=== PATIENT | male | born 1950 | race Caucasian/White ===

== ENCOUNTER → 2019-10-08 11:21 | Outpatient (BNVA) | payer MEDICARE, OTHER, SELFPAY | PROVIDERS: Family Provider Nurse Practitioner; PCP Nurse Practitioner Family; Visit Provider Nurse Practitioner Family | DX: E78.5 Hyperlipidemia, unspecified (principal); J30.89 Other allergic rhinitis; R03.0 Elevated blood-pressure reading, without diagnosis of hypertension | CPT/HCPCS: 80053; 80061; 85025 ==

== ENCOUNTER → 2020-01-15 08:00 | Outpatient (BNVA) | payer MEDICARE, OTHER, SELFPAY | PROVIDERS: Family Provider Nurse Practitioner; PCP Nurse Practitioner Family; Visit Provider Nurse Practitioner Family | DX: E78.5 Hyperlipidemia, unspecified (principal); M25.50 Pain in unspecified joint; R03.0 Elevated blood-pressure reading, without diagnosis of hypertension; M10.9 Gout, unspecified | CPT/HCPCS: 80053; 80061; 84550; 85025 ==

== ENCOUNTER → 2020-02-06 08:46 | Outpatient (BNVA) | payer MEDICARE, OTHER, SELFPAY | PROVIDERS: Family Provider Nurse Practitioner; PCP Nurse Practitioner Family; Visit Provider Nurse Practitioner Family | DX: M10.9 Gout, unspecified (principal); R73.9 Hyperglycemia, unspecified; E78.5 Hyperlipidemia, unspecified | CPT/HCPCS: 83036; 84550; 85025 ==

== ENCOUNTER → 2020-10-29 09:20 | Outpatient (BNVA) | payer MEDICARE, OTHER, SELFPAY | PROVIDERS: Family Provider Nurse Practitioner; PCP Nurse Practitioner Family; Visit Provider Nurse Practitioner Family | DX: Z00.00 Encounter for general adult medical examination without abnormal findings (principal); E78.5 Hyperlipidemia, unspecified; R73.9 Hyperglycemia, unspecified; M10.9 Gout, unspecified; J30.89 Other allergic rhinitis; I10 Essential (primary) hypertension; Z12.5 Encounter for screening for malignant neoplasm of prostate | CPT/HCPCS: 80053; 80061; 83036; 84550; 85025; G0103 ==

== ENCOUNTER → 2021-08-12 17:26 | Outpatient (BNVA) | payer MEDICARE, SELFPAY | PROVIDERS: Family Provider Nurse Practitioner; PCP Nurse Practitioner Family; Visit Provider Nurse Practitioner Family | DX: I10 Essential (primary) hypertension (principal); R73.9 Hyperglycemia, unspecified; E78.5 Hyperlipidemia, unspecified; M10.9 Gout, unspecified | CPT/HCPCS: 80053; 80061; 83036; 84443; 84550; 85025 ==

== ENCOUNTER → 2021-09-04 10:56 | Outpatient (BNVA) | payer MEDICARE, OTHER, SELFPAY | PROVIDERS: Family Provider Nurse Practitioner; PCP Nurse Practitioner Family; Visit Provider Surgery | DX: Z20.822 Contact with and (suspected) exposure to COVID-19 (principal) | CPT/HCPCS: 87635 ==

== ENCOUNTER 2021-09-10 06:39 | Day surgery (SDC) | payer MEDICARE, OTHER, SELFPAY ==
[2021-09-09 13:39] VITALS: BMI 23.0
[2021-09-10 07:00] VITALS: BP 159/88; PULSE 61; RESP 18; TEMP 36.1; O2SAT 98
--- NOTE | 2021-09-10 07:05 | P.HP_ITS ---
Same Day Surgery H&P Indication for Procedure/HPI DATE OF PROCEDURE: September 10, 2021 CHIEF COMPLAINT/INDICATIONFOR SURGICAL PROCEDURE: right inguinal hernia repair PREOP DIAGNOSIS: inguinal hernia PLANNED PROCEDURE: Operation Date: 09/10/21 07:55 Proposed Procedures p Laparoscopic Inguinal Hernia Repair right 51304/k40.90(Right) - Cole Malcolm MD Medications/Allergies* Allergies/Adverse Reactions Allergy/AdvReac Type Severity Reaction Status Date / Time Penicillins Allergy Intermediate rash Verified 09/09/21 13:38 Pertinent History/Comorbid Conditions* Medical History (Updated 08/25/21 @ 09:15 by Cole Malcolm MD) Hyperlipidemia Surgical History (Updated 08/25/21 @ 08:16 by Cole Malcolm MD) H/O hemorrhoidectomy History of left inguinal hernia repair Family History (Updated 10/08/19 @ 08:40 by Helga Christianson LPN, RT) CAD (coronary artery disease) Mother Family/Other Social History Smoking and tobacco status: current some day smoker Second hand smoke exposure: No Lives independently: Yes Marital status: History of recent travel: No Current gender identity: Male Pertinent Exam Findings alert, oriented x 3 and regular rate & rhythm Recommendations Surgery/Procedure today Coding Level of Care Code Acute Stars Coordinator for Naren Ballard
--- NOTE | 2021-09-10 07:07 | ANES.PREANE2 ---
Pre-Anesthetic Assessment Height/Weight: Height 1.83 m Weight 77.111 kg Temp Pulse Resp BP Pulse Ox 97.0 F L 61 18 159/88 98 09/10/21 07:00 09/10/21 07:00 09/10/21 07:00 09/10/21 07:00 09/10/21 07:00 Preop Diagnosis: inguinal hernia Operation Date: 09/10/21 07:55 Proposed Procedures p Laparoscopic Inguinal Hernia Repair right 28161/k40.90(Right) - Cole Malcolm MD Familial anesthetic complications: None Was Beta Cesar taken within 24 hours: N/A Was Clonidine taken within 24 hours: N/A Last intake: Intake Last Liquid Date 09/09/21 Last Liquid Time 18:00 Last Solid Date 09/09/21 Last Solid Time 18:00 Social Tobacco and No alcohol Exam alert, oriented x 3, clear to auscultation bilaterally and regular rate & rhythm Airway Mallampati: Class II Dentition: false Metabolic Hyperlipidemia Anesthetic Plan ASA status: 2 Anesthesia: General Risk of > 500 ml blood loss (7ml/kg in children): No Medications/Allergies Home Medications Medication Instructions Recorded Confirmed Last Taken Type atorvastatin 10 mg tablet (Lipitor) 10 mg PO DAILY #90 tab 08/12/21 09/10/21 09/10/21 Rx allopurinol 100 mg tablet 100 mg PO DAILY #90 tab 08/21/21 09/09/21 Unknown Rx hydrocodone 5 mg-acetaminophen 325 1 tab PO Q6H PRN #20 tab 09/10/21 Unknown Rx mg tablet Allergies Allergy/AdvReac Type Severity Reaction Status Date / Time Penicillins Allergy Intermediate rash Verified 09/09/21 13:38 [facility] Anesthesia Medical History Hyperlipidemia Surgical History H/O hemorrhoidectomy History of left inguinal hernia repair Family History Mother CAD (coronary artery disease) Family/Other CAD (coronary artery disease) Social History Smoking and tobacco status: current some day smoker Second hand smoke exposure: No Lives independently: Yes Marital status: History of recent travel: No Current gender identity: Male Data Anesthesia Cardiac Studies: No Data to Display
[2021-09-10] MEDS: sodium chloride 0.9% 1,000 ML 30 ML IV (07:15)
[2021-09-10 10:11] VITALS: BP 147/83; PULSE 58; RESP 15; TEMP 36.2; O2SAT 100
[2021-09-10 10:15] VITALS: BP 130/86; PULSE 52; RESP 15; O2SAT 100
[2021-09-10 10:20] VITALS: BP 138/84; PULSE 54; RESP 15; TEMP 36.4; O2SAT 96
[2021-09-10 10:28] VITALS: BP 143/79; PULSE 59; RESP 16; TEMP 36.4; O2SAT 94
[2021-09-10] MEDS: HYDROcodone-acetaminophen 5-325 mg Tablet 1 TAB PO (10:56)
[2021-09-10 10:59] VITALS: BP 140/80; PULSE 70; RESP 18; TEMP 36.4; O2SAT 96
--- NOTE | 2021-09-10 11:16 | P.OP_ITS ---
Operative Report Date of procedure: September 10, 2021 Pre-op diagnosis: Right inguinal hernia Post-op diagnosis: Right indirect inguinal hernia Procedure done: Laparoscopic total extraperitoneal repair of right indirect inguinal hernia with Surgimax 3D mesh Pathology: none sent Surgeon: Cole Malcolm Anesthesia: General Condition: stable Disposition: PACU Procedure: The patient was taken to the operating room and intubated under general anesthesia After IV antibiotic was administered, the abdomen was prepped and draped in a sterile manner. Using a 15 blade, a 1.0 cm transverse incision was made infraumbilically on the right side. Subcutaneous tissue was divided using electrocautery and the anterior rectus sheath divided using an 11 blade. The rectus muscle was retracted laterally and the extraperitoneal space identified. A 11 mm port was placed and 12 mm of pneumoperitoneum was created. A 10 mm 30? scope was introduced and the retrorectus space was opened using the camera up to the pubic symphysis and 5 mm ports were placed in the midline, one 2- fingerbreadths above the pubic symphysis and the other midway between these two ports under direct visualization. Blunt dissection was carried out to open up the tissue in the midline and to the pubic symphysis, which was identified. The dissection was then carried laterally where the iliopubic tract was identified. There was no femoral, obturator or direct hernia noted. The inferior epigastric artery was identified and dissection was carried posterior to it and laterally, the space was opened up to the level of the umbilicus superior to the anterior superior iliac spine. I then proceeded to dissect out the spermatic cord and the indirect hernial sac was reduced . 15 x 10cm Ultrapro mesh was rolled and introduced through the 10 mm port and then rolled laterally and apposed well against the abdominal wall to cover the myopectineal orifice completely. 10 Cc of 0.5% Marcaine was infiltrated into the preperitoneal space. The extraperiton eal space was desufflated under direct visualization to ensure no slippage of hernial sac under the mesh. All ports were removed, the anterior rectus fascia at the infraumbilical port closed using figure of eight 0 Vicryl sutures, subcutaneous tissue approximated using 3-0 Vicryl sutures and skin at all three port sites were closed using running subcuticular 4-0 Monocryl sutures and Dermabond. 10 mL of 0.5% Marcaine was infiltrated at the port sites. The patient was stable throughout the procedure.
--- NOTE | 2021-09-10 13:23 | ANE.PACU2 ---
Inpatient post-anesthesia follow up: Airway intact: Yes Vital signs: Temperature 97.5 F Pulse Rate 70 Respiratory Rate 18 Blood Pressure 140/80 Pulse Oximetry 96 Oxygen Delivery Me thod Room Air Oxygen Flow Rate 6 Fraction of Inspir ed Oxygen Hydration adequate: Yes Nausea and vomiting: No Pain level: 2 Mental status: Baseline
== END 2021-09-10 11:05 | disposition home or self-care (01) ==
PROVIDERS: PCP Nurse Practitioner Family; Visit Provider Surgery
PROC: (CPT 49650; principal; 2021-09-10 07:55)
DX: K40.90 Unilateral inguinal hernia, without obstruction or gangrene, not specified as recurrent (principal); E78.5 Hyperlipidemia, unspecified; Z82.49 Family history of ischemic heart disease and other diseases of the circulatory system; F17.210 Nicotine dependence, cigarettes, uncomplicated
CPT/HCPCS: 49650; C1781; J1100; J2405; J2704; J2710; J3010; J3370; J3490; J7030; J7040

== ENCOUNTER → 2021-09-22 13:11 | Outpatient (BNVA) | payer MEDICARE, SELFPAY | PROVIDERS: PCP Nurse Practitioner Family; Visit Provider Surgery | DX: Z98.890 Other specified postprocedural states (principal); Z87.19 Personal history of other diseases of the digestive system; F17.210 Nicotine dependence, cigarettes, uncomplicated ==

== ENCOUNTER → 2022-02-16 09:43 | Outpatient (BNVA) | payer MEDICARE, OTHER, SELFPAY | PROVIDERS: PCP Nurse Practitioner Family; Visit Provider Nurse Practitioner Family | DX: Z00.00 Encounter for general adult medical examination without abnormal findings (principal); I10 Essential (primary) hypertension; Z12.5 Encounter for screening for malignant neoplasm of prostate; M10.9 Gout, unspecified; R73.9 Hyperglycemia, unspecified; M25.561 Pain in right knee; E78.5 Hyperlipidemia, unspecified; Z12.11 Encounter for screening for malignant neoplasm of colon | CPT/HCPCS: 73562; 80053; 80061; 83036; 83735; 84443; 84550; 85025; G0103 ==

== ENCOUNTER 2022-03-03 10:05 | Outpatient (CLI) | payer MEDICARE, OTHER, SELFPAY ==
--- NOTE | 2022-03-03 09:30 | MR_ITS ---
WS: [id number] MRI RIGHT KNEE HISTORY: M25.561 - Pain in right knee COMPARISON: Radiographs 02/16/2022 Anterior cruciate ligament: Intact. Posterior cruciate ligament: Intact. Medial collateral ligament: Intact. Posterior lateral corner structures: Intact. Medial menisci: Scattered increased T2 signal in the posterior horn. No meniscal tear is identified. Anterior horn is negative. Lateral meniscus: Mild intrasubstance degeneration. No tear is identified. Extensor mechanism: Distal quadriceps tendon and patellar tendons are intact. Fluid and soft tissue: No significant joint effusion. Small lobulated Alfred's cyst. Osseous and articular structures: Patellofemoral compartment: Normally positioned patella. Very mild thinning of the patella at the irvin nence and over the medial facet. No underlying marrow edema. Medial compartment: Moderate narrowing medial compartment. Moderate chondromalacia involving the tibi al plateau and femoral condyle. Small amount of subchondral edema along the tibial plateau with small marginal osteophytes. There is very minimal protrusion of the meniscus from the joint line. Lateral compartment: Mild narrowing of the lateral compartment. There is very mild chondromalacia nickie ng the tibial plateau. No marrow edema. There is a very small fluid collection along the popliteus tendon measuring only 12 mm in length. Zully pect this is probably a small ganglion or bursal fluid. Seen only on the sagittal images is a very sm all tract of fluid extending to the posterior horn of the lateral meniscus. Meniscal cyst is not comp letely excluded. MR/MR knee RT wo con* [id number] IMPRESSION: 1. Moderate medial compartment joint space narrowing with chondromalacia. Smal l amount of subchondral marrow edema along the tibial plateau. 2. Mild narrowing of the lateral compartment. 3. Very mild chondromalacia patellar eminence and medial patellar facet. 4. Small fluid collection along the popliteus tendon. There is a small tract t hat extends towards the posterior horn of the lateral meniscus. Differential in cludes meniscal cyst from occult tear, small ganglion or bursal fluid.
== END 2022-03-03 10:06 | disposition home or self-care (01) ==
LOC: RAD 10:06
PROVIDERS: PCP Nurse Practitioner Family; Visit Provider Nurse Practitioner Family
DX: M25.561 Pain in right knee (principal); M94.261 Chondromalacia, right knee
CPT/HCPCS: 73721

== ENCOUNTER → 2022-04-05 07:52 | Outpatient (BNVA) | payer MEDICARE, OTHER, SELFPAY | PROVIDERS: PCP Nurse Practitioner Family; Visit Provider Specialist | DX: M17.11 Unilateral primary osteoarthritis, right knee (principal) | CPT/HCPCS: 73560; 73565; 99203 ==

== ENCOUNTER → 2022-06-04 12:53 | Outpatient (BNVA) | payer MEDICARE, OTHER, SELFPAY | PROVIDERS: PCP Nurse Practitioner Family; Visit Provider Nurse Practitioner Family | DX: M25.50 Pain in unspecified joint (principal); E78.5 Hyperlipidemia, unspecified; M10.9 Gout, unspecified; E55.9 Vitamin D deficiency, unspecified; R73.9 Hyperglycemia, unspecified | CPT/HCPCS: 80053; 80061; 82306; 82607; 83036; 83735; 84443; 84550; 85025; 86038; 86140; 86200; 86431 ==

== ENCOUNTER → 2022-10-06 08:25 | Outpatient (BNVA) | payer MEDICARE, OTHER, SELFPAY | PROVIDERS: PCP Nurse Practitioner Family; Referring Provider Nurse Practitioner Family; Visit Provider Psychiatry & Neurology Neurology | DX: R29.90 Unspecified symptoms and signs involving the nervous system (principal); Z82.0 Family history of epilepsy and other diseases of the nervous system; G45.1 Carotid artery syndrome (hemispheric); R03.0 Elevated blood-pressure reading, without diagnosis of hypertension | CPT/HCPCS: 36415; 81271 ==

== ENCOUNTER → 2022-10-06 08:25 | Outpatient (BNVA) | payer MEDICARE, OTHER, SELFPAY | PROVIDERS: PCP Nurse Practitioner Family; Referring Provider Nurse Practitioner Family; Visit Provider Psychiatry & Neurology Neurology | DX: Z82.0 Family history of epilepsy and other diseases of the nervous system (principal); R29.90 Unspecified symptoms and signs involving the nervous system; G45.1 Carotid artery syndrome (hemispheric); R03.0 Elevated blood-pressure reading, without diagnosis of hypertension; E78.5 Hyperlipidemia, unspecified; E55.9 Vitamin D deficiency, unspecified; M10.9 Gout, unspecified | CPT/HCPCS: 99212 ==

== ENCOUNTER 2022-10-13 06:17 | Outpatient (CLI) | payer MEDICARE, OTHER, SELFPAY ==
--- NOTE | 2022-10-13 06:15 | USCV_ITS ---
Ahsan Beltrán Age: 72 Gender: M : 1950 Exam Date: 10/13/2022 07:04 Ordering Phys: Pablito Nugent MD Technologist: YANA Exam Location: [facility] – [place] Indication: SHORTNESS OF BREATH BP: 166 / 90 HR: 81 Rhythm: Sinus Technical Quality: Adequate MEASUREMENTS (Male / Female) Normal Values 2D ECHO LVOT Diameter 2.0 cm LV Ejection Fraction MOD 2C 61.6 % LV Ejection Fraction 2C AL 61.8 % LA Diameter 3.5 cm LA Width 2.8 cm LA Height 4.0 cm RA Width 3.7 cm RA Height 4.4 cm Aorta at Sinotubular Diameter 2.9 cm IVC Diameter 1.0 cm M-MODE Aortic Annulus Diameter 2.6 cm LA Ao Ratio MM 1.3 MV E Point Septal Separation 0.2 cm DOPPLER AV Peak Velocity 168.0 cm/s LVOT Peak Velocity 117.0 cm/s AV Area Cont Eq vti 2.2 cm squared AV Area Cont Eq pk 2.1 cm squared MV Peak Velocity 83.0 cm/s MV Area PHT 3.3 cm squared Mitral E to A Ratio 0.9 MV E' Velocity 39.5 cm/s Mitral E to MV E' Ratio 4.8 Mitral E to LV E' Lateral Ratio 4.8 Mitral E to LV E' Septal Ratio 4.8 TR Peak Velocity 231.1 cm/s TR Peak Gradient 21.4 mmHg TR Mean Velocity 210.0 cm/s TR Mean Gradient 18.2 mmHg TR Velocity Time Integral 79.6 cm TV Peak E Velocity 40.0 cm/s Right Atrial Pressure 3.0 mmHg Pulmonary Artery Systolic Pressu 24.4 mmHg PV Peak Velocity 156.0 cm/s RV Acceleration Time 0.1 s RV Ejection Time 0.3 s RV AcT/ET 0.4 FINDINGS Left Ventricle Normal left ventricular size and systolic function, EF 59 %. No regional wall motion abnormalities. Right Ventricle The right ventricle is normal in size and function. Right Atrium The right atrium is normal in size. Left Atrium The left atrium is normal in size. Mitral Valve Trace mitral valve regurgitation. Aortic Valve No gross abnormalities noted. Aortic valve velocity of 1.73 m/s. Features of aortic valve sclerosis Tricuspid Valve Trace tricuspid valve regurgitation. Pulmonic Valve No gross abnormalities noted Pericardium Normal pericardium without effusion. Aorta Normal ascending aorta dimension. IVC Normal inferior vena cava. CONCLUSIONS Normal left ventricular size and systolic function, EF 59 %. No regional wall motion abnormalities. Features of aortic valve sclerosis. Trace tricuspid valve regurgitation. Trace mitral valve regurgitation. There is no pericardial effusion. There are no intracardiac masses. No similar previous studies are available for comparison Dr Campos Weldon MD FAC (Electronically Signed) Final Date: 15 Oct 2022 08:28 S
--- NOTE | 2022-10-13 07:30 | USCV_ITS ---
Ahsan Beltrán Age: 72 Gender: M : 1950 Exam Date: 10/13/2022 06:41 Ordering Phys: Pablito Nugent MD Technologist: JACKLYN Exam Location: [facility] [place] Indication: EVAL FOR CAROTID STENOSIS Risk Factors: Previous Vascular Surgery: Right Brachial BP: / Left Brachial BP: / Right Left Velocity (cm/s) Spectral Plaque Velocity (cm/s) Spectral Plaque Syst/Diast Broadening Syst/Diast Broadening 69.50/ 15.40 Prox CCA 100.00/ 25.60 73.90/ 20.90 Mid CCA 69.20 / 20.50 67.40/ 16.70 Distal CCA 53.00 / 20.50 38.20/ 15.40 Prox ICA 42.70 / 13.90 62.60/ 26.90 Mid ICA 64.90 / 25.60 57.40/ 22.20 Distal ICA 82.00 / 29.10 78.90 ECA 100.80 0.85 ICA/CCA 0.82 Antegrade Vertebral Antegrade 52.00/ 17.10 cm/s 46.70/ 15.80 cm/s Tri Subclavian Tri 88.00 112.4 0 FINDINGS Comparison: none available. No significant elevation of systolic or diastolic velocities. Waveforms are normal. Focal plaque at the bifurcations without stenosis. Antegrade vertebral arteries. CONCLUSIONS Bilateral ICA stenosis less than 50%. Mild carotid bifurcation atherosclerosis. Dr. Shalini Clarke DO (Electronically Signed) Final Date: 13 Oct 2022 07:49 S
== END 2022-10-13 06:18 | disposition home or self-care (01) ==
PROVIDERS: PCP Nurse Practitioner Family; Visit Provider Psychiatry & Neurology Neurology
DX: R03.0 Elevated blood-pressure reading, without diagnosis of hypertension (principal); R29.90 Unspecified symptoms and signs involving the nervous system; I65.23 Occlusion and stenosis of bilateral carotid arteries
CPT/HCPCS: 93306; 93880

== ENCOUNTER → 2022-11-09 13:46 | Outpatient (BNVA) | payer MEDICARE, OTHER, SELFPAY | PROVIDERS: PCP Nurse Practitioner Family; Visit Provider Psychiatry & Neurology Neurology | DX: I77.9 Disorder of arteries and arterioles, unspecified (principal); Z82.0 Family history of epilepsy and other diseases of the nervous system; I65.23 Occlusion and stenosis of bilateral carotid arteries; E78.5 Hyperlipidemia, unspecified; M10.9 Gout, unspecified | CPT/HCPCS: 99212 ==

== ENCOUNTER → 2022-12-10 12:10 | Outpatient (BNVA) | payer MEDICARE, OTHER, SELFPAY | PROVIDERS: PCP Nurse Practitioner Family; Visit Provider Nurse Practitioner Family | DX: M10.9 Gout, unspecified (principal); I10 Essential (primary) hypertension; R73.9 Hyperglycemia, unspecified | CPT/HCPCS: 80053; 80061; 82306; 83036; 84443; 84550; 85025 ==

== ENCOUNTER → 2023-01-17 08:20 | Outpatient (BNVA) | payer MEDICARE, OTHER, SELFPAY | PROVIDERS: PCP Nurse Practitioner Family; Visit Provider Nurse Practitioner Family | DX: I10 Essential (primary) hypertension (principal) | CPT/HCPCS: 80048 ==

== ENCOUNTER → 2023-01-24 13:40 | Outpatient (BNVA) | payer MEDICARE, OTHER, SELFPAY | PROVIDERS: PCP Nurse Practitioner Family; Visit Provider Dermatology | DX: L57.0 Actinic keratosis (principal); L82.1 Other seborrheic keratosis; L81.4 Other melanin hyperpigmentation; D22.4 Melanocytic nevi of scalp and neck; L57.8 Other skin changes due to chronic exposure to nonionizing radiation; D17.22 Benign lipomatous neoplasm of skin and subcutaneous tissue of left arm; D17.21 Benign lipomatous neoplasm of skin and subcutaneous tissue of right arm | CPT/HCPCS: 17000; 17003; 99203 ==

== ENCOUNTER → 2023-07-15 09:10 | Outpatient (BNVA) | payer MEDICARE, OTHER, SELFPAY | PROVIDERS: PCP Nurse Practitioner Family; Visit Provider Nurse Practitioner Family | DX: I10 Essential (primary) hypertension; Z12.5 Encounter for screening for malignant neoplasm of prostate; E55.9 Vitamin D deficiency, unspecified; M10.9 Gout, unspecified; R73.9 Hyperglycemia, unspecified | CPT/HCPCS: 80053; 80061; 82306; 83036; 84550; 85025; G0103 ==

== ENCOUNTER → 2023-11-07 12:45 | Outpatient (BNVA) | payer MEDICARE, OTHER, SELFPAY | PROVIDERS: PCP Nurse Practitioner Family; Visit Provider Psychiatry & Neurology Neurology | DX: I77.9 Disorder of arteries and arterioles, unspecified (principal); E78.5 Hyperlipidemia, unspecified | CPT/HCPCS: 99213; G0463 ==

== ENCOUNTER → 2024-07-05 14:52 | Outpatient (BNVA) | payer MEDICARE, OTHER, SELFPAY | PROVIDERS: PCP Nurse Practitioner Family; Visit Provider Nurse Practitioner Family | DX: R91.8 Other nonspecific abnormal finding of lung field (principal); R50.9 Fever, unspecified; R05.9 Cough, unspecified | CPT/HCPCS: 71046; 87400; 87426 ==

== ENCOUNTER 2024-07-06 10:44 | Inpatient (IN) | payer MEDICARE, OTHER, SELFPAY ==
[2024-07-06] VITALS (39 sets, daily range): BP systolic 90–133; BP diastolic 60–100; PULSE 74–127; RESP 17–31; TEMP 36.9–37.5; O2SAT 88–98; BMI 21.9
--- NOTE | 2024-07-06 10:49 | ECG_ITS ---
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
--- NOTE | 2024-07-06 10:49 | ECG_ITS ---
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
--- NOTE | 2024-07-06 10:57 | XR_ITS ---
WS: [id number] Portable AP upright chest, 07/06/2024 Clinical Data: dyspnea/cough Comparison: Two-view chest, 07/05/2024 Findings: The patchy opacities in the lower lobes persist today. The upper lobes are clear no nodules, masses or effusions are seen. The heart is normal. The pulmonary vascularity is not increased. No pneumothorax is seen. Monitor leads are on the chest wall. XR/XR chest 1V portable [id number] Impression: Minimal patchy bilateral lower lobe opacities which could indicate pneumonia.
--- NOTE | 2024-07-06 11:04 | ED_ITS ---
HPI - SOB/Dyspnea 2 General: Chief Complaint: Shortness of Breath/Dyspnea Stated Complaint: pneumonia Time Seen by Provider: 07/06/24 10:47 History of Present Illness: HPI Narrative: 74-year-old male presents to the emergen cy room with complaints of shortness of breath. He was seen at his primary care doctor's office yesterday thought to have pneumonia bilaterally was treated as an outpatient went back today for follow-up and was noted to be in A-fib with rapid ventricular response. Prior to going in he tells me he had been cutting wood with a chainsaw and a hydraulic splitter he had noticed he was more short of breath than usual. He EMS on arrival had him on 4 L by nasal cannula and reported his heart rate up to 150s his oxygen sat in the mid 90s. He has no known cardiac history no history of any arrhythmias no history of any atrial fibrillation in the past he is on aspirin he is not on any oral anticoagulants. Associated symptoms: Reports palpitations; Deny abdominal pain, chest pain or fever(s) Related Data Home Medications ?Medication ?Instructions ?Recorded ?Confirmed atorvastatin 10 mg tablet 10 mg PO DAILY 07/06/2412/21 diclofenac sodium 75 mg 75 mg PO DAILY pain 07/06/24 07/06/24 tablet,delayed release Previous Rx's ?Medication ?Instructions ?Recorded aspirin 81 mg tablet,delayed 81 mg PO DAILY #30 tabs 0 11/07/23 release (Adult Aspirin Regimen) cholecalciferol (vitamin D3) 1,250 50,000 unit PO .vic albarado #12 caps 11/07/23 mcg (50,000 unit) capsule albuterol sulfate 2.5 mg/3 mL 2.5 mg (3 mL) inhalation QID PRN 07/05/24 (0.083 %) solution for nebulization shortness of breat h or wheezing #75 mL compressor, for nebulizer #1 ea 07/05/24 nebulizer accessories #1 ea 07/05/24 Allergies Allergy/AdvReac Type Severity Reaction Status Date / Time Penicillins Allergy Intermediate rash Verified 07/05/24 14:07 Review of Systems 2 Const: Denies: fever(s) or chills Card: Reports: palpitations and irregular heart rhythm; Denies: chest pain Resp: Reports: dyspnea and productive cough GI: Denies: abdominal pain : Denies: dysuria, urinary frequency or urinary urgency Musc: Denies: neck pain or back pain Skin/Breast: Denies: rash PFSH ED 2 PFSH: Medical History Hyperlipidemia Surgical History Status post right inguinal hernia repair (09/10/21) History of left inguinal hernia repair H/O hemorrhoidectomy Family History Mother CAD (coronary artery disease) Family/Other CAD (coronary artery disease) Social History Smoking and tobacco/nicotine status: former use of tobacco/nicotine Second hand smoke exposure: No Substance/Drug Use: never Lives independently: Yes Marital status: Current gender identity: Male Physical Exam 2 Const: GENERAL APPEARANCE: cooperative ORIENTATION/CONSCIOUSNESS: Yes awake, Yes oriented to person, Yes oriented to place and Yes oriented to time HENMT: COMMON NORMALS: normocephalic, atraumatic and hearing grossly normal bilaterally HEAD & SCALP: normocephalic and atraumatic Resp: AUSCULTATION: rales Cardio: COMMON NORMALS: No murmurs present (Cardio) RATE: tachycardic R HYTHM: abnormal rhythm irregularly irregular GI: COMMON NORMALS: Soft to palpation and No hepatosplenomegaly present A USCULTATION: Yes normoactive bowel sounds PALPATION: Yes Soft to palpation, No Tenderness to palpation present (GI), No Guarding due to palpation present (GI) and Yes No hepatosplenomegaly present Extremity: COMMON NORMALS: normal to inspection, capillary refill normal, no clubbing, cyanosis or edema, no calf tenderness and no pedal edema Neuro: SENSORIUM/ORIENTATION: Yes oriented to person, Yes oriented to place and Yes oriented to time Skin: COMMON NORMALS: no rashes or lesions noted GENERAL SKIN EXAM: no rashes or lesions noted Course 2 Vital Signs: Vital signs: Vital Signs Temperature 98.8 F 07/06/24 14:48 Pulse Rate 93 07/06/24 15:00 Respiratory Rate 25 H 07/06/24 15:00 Blood Pressure 116/79 07/06/24 15:00 Pulse Oximetry 93 07/06/24 15:00 Oxygen Delivery Me thod Room Air 07/06/24 15:00 Oxygen Flow Rate 4 07/06/24 10:47 MDM - SOB/Dyspnea Medical Decision Making New onset A-fib rapid ventricular sponsor improved after Cardizem chills he also has pneumonia start IV antibiotics cultures done. Discussed with hospitalist orders written. Will need further evaluation for new onset A-fib as well. He also has mild acute kidney injury Lab Data 07/06/24 11:08 07/06/24 11:08 Labs/Radiology: Radiology Impressions Chest X-Ray 07/06/24 10:57 Impression: Minimal patchy bilateral lower lobe opacities which could indicate pneumonia. Laboratory Results WBC 15.87 10^3/uL (3.29-11.43) H 07/06/24 11:08 RBC 4.56 10^6/uL (3.85-5.65) 07/06/24 11:08 Hgb 14.50 g/dL (11.27-16.99) 07/06/24 11:08 Hct 43.1 % (37-53) 07/06/24 11:08 MCV 94.5 fl (82-101) 07/06/24 11:08 MCH 31.8 pg (27-33) 07/06/24 11:08 MCHC 33.6 g/dL (30-55) 07/06/24 11:08 RDW 12.4 % (12.1-15.1) 07/06/24 11:08 Plt Count 225 10^3/cmm (157-399) 07/06/24 11:08 MPV 9.6 fL (7.4-10.4) 07/06/24 11:08 Neut % (Auto) 87.9 % 07/06/24 11:08 Lymph % (Auto) 3.7 % 07/06/24 11:08 Ross % (Auto) 7.4 % 07/06/24 11:08 Eos % (Auto) 0.1 % 07/06/24 11:08 Baso % (Auto) 0.4 % 07/06/24 11:08 Neut # (Auto) 13.95 10^3/uL (1.8-7.7) H 07/06/24 11:08 Lymph # (Auto) 0.6 10^3/uL (0.8-4.8) L 07/06/24 11:08 Ross # (Auto) 1.2 10^3/uL (0.2-0.9) H 07/06/24 11:08 Eos # (Auto) 0.0 10^3/uL (0.0-0.8) 07/06/24 11:08 Baso # (Auto) 0.1 10^3/uL (0.0-0.1) 07/06/24 11:08 Nucleated RBC % (auto) 0 % 07/06/24 11:08 Nucleated RBCs # 0.0 /100WBC 07/06/24 11:08 D-Dimer 0.78 ug/mLFEU (0-0.59) H 07/06/24 11:08 Sodium 132 mmol/L (136-145) L 07/06/24 11:08 Potassium 4.5 mmol/L (3.5-5.1) 07/06/24 11:08 Chloride 94 mmol/L (98-107) L 07/06/24 11:08 Carbon Dioxide 25 mmol/L (22-29) 07/06/24 11:08 Anion Gap 17.5 (5-19) 07/06/24 11:08 BUN 23 mg/dL (8-23) 07/06/24 11:08 Creatinine 1.4 mg/dL (0.7-1.2) H 07/06/24 11:08 GFR Calculation Not Reportable 07/06/24 11:08 Glucose 132 mg/dL (65-115) H 07/06/24 11:08 Calculated Osmolality 280 mOsm/kg (285-295) L 07/06/24 11:08 Calcium 9.0 mg/dL (8.5-10.5) 07/06/24 11:08 Total Bilirubin 0.8 mg/dL (0.15-1.2) 07/06/24 11:08 AST 48 U/L (0-40) H 07/06/24 11:08 ALT 72 U/L (0-41) H 07/06/24 11:08 Alkaline Phosphatase 67 U/L (40-130) 07/06/24 11:08 Troponin T Baseline 16 ng/L (0-15) H 07/06/24 11:08 NT-Pro-B Natriuret Pep 1164 pg/mL (0-125) H 07/06/24 11:08 Total Protein 7.3 g/dL (6.6-8.7) 07/06/24 11:08 Albumin 3.5 g/dL (3.5-5.2) 07/06/24 11:08 Globulin 3.8 g/dL (1.3-4.6) 07/06/24 11:08 Procalcitonin 0.11 ng/mL (0-0.5) 07/06/24 11:08 Urine Color Dark yellow (Yellow) A 07/06/24 12:12 Urine Appearance Clear (CLEAR) 07/06/24 12:12 Urine pH 5.5 (5-7) 07/06/24 12:12 Ur Specific Caroleen 1.024 (1.005-1.030) 07/06/24 12:12 Urine Protein 1+ (Negative) A 07/06/24 12:12 Urine Glucose (UA) Negative (Normal) 07/06/24 12:12 Urine Ketones Trace (Negative) 07/06/24 12:12 Urine Blood Negative (Negative) 07/06/24 12:12 Urine Nitrate Negative (Negative) 07/06/24 12:12 Urine Bilirubin Negative (Negative) 07/06/24 12:12 Urine Urobilinogen 1.0 mg/dL (Negative) 07/06/24 12:12 Ur Leukocyte Esterase Negative (Negative) 07/06/24 12:12 Urine RBC 0-2 /hpf (0-2) 07/06/24 12:12 Urine WBC 0-5 /hpf (0-5) 07/06/24 12:12 Ur Squamous Epith Cells 0-5 /hpf (0-5) 07/06/24 12:12 Amorphous Sediment Not Reportable 07/06/24 12:12 Urine Bacteria None seen /hpf (NONE) 07/06/24 12:12 Hyaline Casts 10.73 /lpf 07/06/24 12:12 Fine Granular Casts 0-4 /lpf H 07/06/24 12:12 All radiology interpretation(s) finalized by discharge Discharge Plan Discharge Patient Disposition: Admitted As Inpatient Admit Provider: Wendy Pradhan Clinical Impression: Atrial fibrillation with rapid ventricular response, Pneumonia, Acute kidney injury Condition: Stable Coding Level of Care Code ED Community Health Advisor for Naren Ballard
[2024-07-06] MEDS: dilTIAZem 5 mg/mL SDV 5 mL 20 MG IVP (11:09)
[2024-07-06] MEDS: dilTIAZem 100 MG in sodium chloride 0.9% (add-van) 100 ML IV ×2 (11:10→18:36)
[2024-07-06 11:16] LABS: Basophils # 0.1 10^3/uL (0.0-0.1); Basophils % 0.4 %; Eosinophils % 0.1 %; Hematocrit 43.1 % (37-53); Lymphocytes # 0.6 10^3/uL (0.8-4.8); Lymphocytes % 3.7 %; Mean Corpuscular HGB Conc 33.6 g/dL (30-55); Mean Corpuscular Hemoglobin 31.8 pg (27-33); Mean Corpuscular Volume 94.5 fl (82-101); Mean Platelet Volume 9.6 fL (7.4-10.4); Monocytes # 1.2 10^3/uL (0.2-0.9); Monocytes % 7.4 %; Neutrophils # 13.95 10^3/uL (1.8-7.7); Neutrophils % 87.9 %; Nucleated Red Blood Cells % 0 %; Platelet Count 225 10^3/cmm (157-399); Red Blood Count 4.56 10^6/uL (3.85-5.65); Red Cell Distribution Width 12.4 % (12.1-15.1); White Blood Count 15.87 10^3/uL (3.29-11.43)
[2024-07-06 11:33] LABS: Alanine Aminotransferase 72 U/L (0-41); Albumin Level 3.5 g/dL (3.5-5.2); Alkaline Phosphatase 67 U/L (40-130); Anion Gap 17.5 (5-19); Aspartate Amino Transferase 48 U/L (0-40); Blood Urea Nitrogen 23 mg/dL (8-23); Carbon Dioxide 25 mmol/L (22-29); Chloride 94 mmol/L (98-107); Globulin 3.8 g/dL (1.3-4.6); Glucose 132 mg/dL (65-115); Osmolality Calculated 280 mOsm/kg (285-295); Potassium 4.5 mmol/L (3.5-5.1); Sodium 132 mmol/L (136-145); Total Bilirubin 0.8 mg/dL (0.15-1.2); Total Protein 7.3 g/dL (6.6-8.7)
[2024-07-06 12:20] LABS: Bilirubin Urine Negative (Negative); Blood Urine Negative (Negative); Glucose Urine UA Negative (Normal); Ketones Urine Trace (Negative); Leukocyte Esterase Urine Negative (Negative); Nitrate Urine Negative (Negative); Protein Urine 1+ (Negative); Specific Gravity, Urine 1.024 (1.005-1.030); Urine Appearance Clear (CLEAR); Urine Color Dark Yellow (Yellow); pH Urine 5.5 (5-7)
[2024-07-06 12:25] LABS: Add Urine Microscopic? YES; Bacteria Urine None Seen /hpf; Hyaline Casts Urine 10.73 /lpf; RBC Urine 0-2 /hpf (0-2); Squamous Epithelial Cell Urine 0-5 /hpf (0-5); WBC Urine 0-5 /hpf (0-5)
[2024-07-06 12:35] LABS: UA Slide Review UA Slide Review Perf
[2024-07-06 12:36] LABS: Fine Granular Casts Urine 0-4 /lpf
[2024-07-06 12:50] LABS: Troponin(5th) Baseline 16 ng/L (0-15)
[2024-07-06 12:51] LABS: D Dimer 0.78 ug/mLFEU (0-0.59)
[2024-07-06 13:08] LABS: NT Pro B Type Natriuretic Pept 1164 pg/mL (0-125); Procalcitonin 0.11 ng/mL (0-0.5)
[2024-07-06] MEDS: levofloxacin-dextrose 5 % 500 MG/100 ML PREMIX 100 MG IV (13:08)
[2024-07-06 14:11] LABS: Troponin 5 2HR 14.98 ng/L (0-15)
[2024-07-06 14:12] LABS: Troponin 5 2HR Delta -1.02 ABS# (0-10)
--- NOTE | 2024-07-06 14:27 | ECG_ITS ---
[employer] Test Date: 2024-07-06 Pat Name: Ahsan Beltrán Department: Room: ICU09 Gender: Male Body Design Checker: : 1950 Requested By: German Gambino Order Number: [id number] Reading MD: RONNIE MOORE Measurements Intervals [place] Rate: 97 P: 0 ME: 0 QRS: 47 QRSD: 102 T: 46 QT: 358 QTc: 455 Interpretive Statements ATRIAL FIBRILLATION ABNORMAL RHYTHM ECG Compared to ECG 07/06/2024 10:49:42 Ventricular premature complex(es) no longer present Aberrant conduction of supraventricular beat(s) no longer present Myocardial infarct finding no longer present Electronically Signed On 07-08-2024 21:11:07 SKEIN DRIER by RONNIE MOORE [email or web address] [id number]
[2024-07-06] MEDS: cefTRIAXone 1,000 mg SDV 1000 MG IVP (14:38)
[2024-07-06] MEDS: enoxaparin 40 mg/0.4 mL Syringe SUBCUT (14:38)
[2024-07-06 16:19] LABS: MRSA PCR OZH (swab) NOT DETECTED (Negative)
[2024-07-06] MEDS: dilTIAZem 30 mg Tablet PO ×2 (16:23→21:26)
[2024-07-06 17:08] LABS: NT Pro B Type Natriuretic Pept 1137 pg/mL (0-125)
[2024-07-06 18:03] LABS: Troponin 5 6HR 16.27 ng/L (0-15); Troponin 5 6HR Delta 0.27 ng/L (0-12)
--- NOTE | 2024-07-06 18:06 | ECG_ITS ---
[employer] Test Date: 2024-07-06 Pat Name: Ahsan Beltrán Department: Room: ICU09 Gender: Male Syruper: : 1950 Requested By: German Gambino Order Number: [id number] Reading MD: RONNIE MOORE Measurements Intervals [place] Rate: 80 P: 0 [place]: 0 QRS: 55 QRSD: 99 T: 30 QT: 362 QTc: 418 Interpretive Statements ATRIAL FIBRILLATION SEPTAL MYOCARDIAL INFARCTION , PROBABLY OLD [40+ ms Q WAVE IN V1/V2] Compared to ECG 07/06/2024 15:54:58 Myocardial infarct finding now present Electronically Signed On 07-08-2024 21:10:48 INDUSTRIAL MAINTENANCE INSTRUCTOR by RONNIE MOORE [email or web address]
--- NOTE | 2024-07-06 18:50 | P.HP_ITS ---
Providers/Chief Complaint 2 Admitting Physician: Wendy Pradhan MD Primary Care Provider: ASAY Bales Chief Complaint: pneumonia History of Present Illness Ahsan Beltrán is a 74 year old male with no significant past medical history presents to the ER today from primary care's office. Patient has been having flulike symptoms for over a week. As his symptoms were not improving he went to the urgent care few days ago and was diagnosed of pneumonia. He went to see his PCP today where he was found to have hypoxia with oxygen saturation down to 60s hence he was sent into the ER. In the ER he was found to have A-fib with RVR. Patient shortness of breath on exertion has been getting worse recently. 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 States he is feeling better. Remains on room air with saturation of 90%. Denies any nausea, vomiting, headache. Review of Systems 2 General: Reports: 10 or more systems reviewed and unremarkable except in HPI and below Const: Denies: fever(s), chills or body aches Eyes: Denies: change in vision, blurry vision or photophobia ENMT: Reports: hoarseness; Denies: throat pain, enlarged tonsils, odynophagia or nasal congestion Card: Denies: chest pain, palpitations, irregular heart rhythm, edema, swelling of feet/ankles, lightheadedness, pre-syncope, dyspnea on exertion or orthopnea Resp: Denies: dyspnea, productive cough, non-productive cough, wheezing, stridor, pain on inspiration, change in phlegm color, hemoptysis or chest congestion GI: Denies: abdominal pain, nausea, vomiting, hematemesis, coffee ground emesis, dysphagia, heartburn, diarrhea, constipation, GI cramping, change in stool character, hematochezia or melena : Denies: flank pain, dysuria, urinary frequency, urinary urgency, urinary hesitancy or hematuria Musc: Denies: neck pain, back pain, extremity pain, joint swelling, joint warmth or deformity Neuro: Denies: headache(s), numbness in extremities, weakness in extremities, sensory changes, difficulty walking, frequent falls, dizziness, vertigo, behavioral changes, Slurred speech present or seizure-like activity Psych: Denies: anxiety, depression, suicidal ideation or homicidal ideation Endo: Denies: polyuria, polydipsia, tired all the time, cold intolerance or hot flashes Perico/Lymph: Denies: easy bruising or easy bleeding Medications/Allergies Home Medications ?Medication ?Instructions ?Recorded ?Confirmed ?Last Taken ?Type aspirin 81 mg tablet,delayed 81 mg PO DAILY #30 tabs 0 11/07/23 07/06/24 07/05/24 Rx release (Adult Aspirin Regimen) cholecalciferol (vitamin D3) 1,250 50,000 unit PO .vic albarado #12 caps 11/07/23 07/06/24 Unknown Rx mcg (50,000 unit) capsule albuterol sulfate 2.5 mg/3 mL 2.5 mg (3 mL) inhalation QID PRN 07/05/24 07/06/24 Unknown Rx (0.083 %) solution for nebulization shortness of breat h or wheezing #75 mL compressor, for nebulizer #1 ea 07/05/24 07/06/24 Unkn own Rx nebulizer accessories #1 ea 07/05/24 07/06/24 Unkn own Rx atorvastatin 10 mg tablet 10 mg PO DAILY 07/06/24 02/0 12/2107/05/24 History diclofenac sodium 75 mg 75 mg PO DAILY pain 07/06/24 07/06/24 07/05/24 History tablet,delayed release Allergies Allergy/AdvReac Type Severity Reaction Status Date / Time Penicillins Allergy Intermediate rash Verified 07/05/24 14:07 PFSH Acute 2 PFSH: Medical History (Updated 07/06/24 @ 18:56 by Wendy Pradhan MD) Family history of Edward's disease Carotid disease, bilateral Hypertension Hyperlipidemia Surgical History Status post right inguinal hernia repair (09/10/21) History of left inguinal hernia repair H/O hemorrhoidectomy Family History (Updated 07/06/24 @ 18:56 by Wendy Pradhan MD) Mother CAD (coronary artery disease) Family/Other CAD (coronary artery disease) Other [place]'s chorea Social History Smoking and tobacco/nicotine status: former use of tobacco/nicotine Second hand smoke exposure: No Substance/Drug Use: never Lives independently: Yes Marital status: Current gender identity: Male Vitals/I&O/Wt Last Vital Signs Temp 98.8 F 07/06/24 14:48 Pulse 89 07/06/24 18:00 Resp 26 H 07/06/24 18:00 BP 112/72 07/06/24 18:00 Pulse Ox 90 07/06/24 18:00 O2 Del Method Room Air 07/06/24 18:00 O2 Flow Rate 4 07/06/24 10:47 07/06/24 07/06/24 07/06/24 06:59 14:59 22:59 Intake Total 528.625 / 528.625 259.167 / 787.792 Output Total 275 / 275 Balance 528.625 / 528.625 -15.833 / 512.792 Weight last 48 hrs Weight 76.1 kg Weight 73.482 kg Physical Exam 2 Narrative: GEN: Awake, alert and oriented, no acute distress, flushed, on room air CVS: S1S@irregularly irregular, no tachycardia RS: Bilateral bronchial breath sounds with occasional rhonchi and crackles right more than left Abd: Soft, nt/nd , bs+ 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 SIRS: Tachycardic, Febrile, Leukocytosis Source: Pneumonia End organ damage: STANTON, A-fib Check lactic acid with reflex Patient did not receive full 30 mL/kg BW given concerns for A-fib with RVR, congestive heart failure NS at 50 cc/h for 1 bag. Watch for fluid overload. Monitor blood pressures. Keep mean artery pressure 65 mmHg. Check Blood culture, MRSA swab, procalcitonin, sputum culture. (2) Pneumonia: Chest x-ray consistent with bilateral pneumonia. Check sputum culture as above. Treatment for community-acquired pneumonia with IV ceftriaxone and was azithromycin. If MRSA swab positive will add coverage. (3) Atrial fibrillation with rapid ventricular response: New diagnosis. Currently on Cardizem drip. Wean keeping heart rate less than 100 bpm. Start on oral Cardizem 30 mg Q6 hourly. Check echocardiogram. Discussed anticoagulation for stroke prevention in detail with the patient. He is agreeable. Start on full dose Lovenox 1 mg/kg body weight Q12 hourly. Will plan to transition over to Eliquis on discharge. (4) Hypertension: Goal blood pressure less than 140/90 mmHg. Will continue to monitor. Qualifiers: Hypertension type: unspecified Qualified Code(s): I10 - Essential (primary) hypertension (5) Flu-like symptoms: Recent flulike symptoms. For now start on Pulmicort twice daily, ipratropium, Xopenex every 6 hourly. Oxygen supplementation keeping saturation over 88%. Plan Full code Clear liquid diet for now. If tolerating well with this transition to cardiac diet in morning. Full dose Lovenox will be sufficient for DVT prophylaxis Protonix OPD prophylaxis PDMP PDMP Reviewed: Not Reviewed Attestations 2 Medical Necessity Statement*: Admission for more than 2 midnights for management of sepsis in setting of pneumonia, new diagnosis of A-fib with RVR Diagnoses Sepsis A41.9 Pneumonia J18.9 Atrial fibrillation with rapid ventricular response I48.91 Hypertension, unspecified type I10 Hypertension type: unspecified Flu-like symptoms R68.89
[2024-07-06] MEDS: sodium chloride 0.9% 1,000 ML 50 ML IV (19:21)
[2024-07-06] MEDS: enoxaparin 80 mg/0.8 mL Syringe SUBCUT (19:45)
[2024-07-06] MEDS: ipratropium 0.5 mg/2.5 mL Neb INHALATION (19:56)
[2024-07-06] MEDS: levalbuterol 0.63 mg/3 mL Neb INHALATION (19:56)
[2024-07-06] MEDS: budesonide 0.5 mg/2 mL Neb INHALATION (19:56)
--- NOTE | 2024-07-06 20:00 | PC.NURSE ---
Lovenox Lovenox order changed from 40 mg Q24H to 80 mg Q12H. Last dose administered at 1438. Dr. Hardy contacted and verification received to administer the 80 mg lovenox at 194.
--- NOTE | 2024-07-06 20:15 | PC.NURSE ---
MRSA Swab MRSA swab test resulted negative at 1426. Second swab test ordered; Verification received from Dr. Hardy to not perform duplicate test.
[2024-07-07] VITALS (58 sets, daily range): BP systolic 92–125; BP diastolic 59–97; PULSE 82–130; RESP 10–37; TEMP 36.8–37; O2SAT 84–97; BMI 22.8
[2024-07-07] MEDS: ipratropium 0.5 mg/2.5 mL Neb INHALATION ×4 (02:54→20:26)
[2024-07-07] MEDS: levalbuterol 0.63 mg/3 mL Neb INHALATION ×4 (02:54→20:26)
[2024-07-07] MEDS: dilTIAZem 30 mg Tablet PO ×2 (04:25→08:03)
[2024-07-07 06:33] LABS: Basophils # 0.1 10^3/uL (0.0-0.1); Basophils % 0.3 %; Eosinophils % 0.1 %; Hematocrit 38.5 % (37-53); Lymphocytes # 0.9 10^3/uL (0.8-4.8); Mean Corpuscular HGB Conc 34.3 g/dL (30-55); Mean Corpuscular Hemoglobin 32.4 pg (27-33); Mean Corpuscular Volume 94.4 fl (82-101); Mean Platelet Volume 9.9 fL (7.4-10.4); Monocytes # 1.1 10^3/uL (0.2-0.9); Monocytes % 7.2 %; Neutrophils # 12.91 10^3/uL (1.8-7.7); Neutrophils % 85.6 %; Nucleated Red Blood Cells % 0 %; Platelet Count 244 10^3/cmm (157-399); Red Blood Count 4.08 10^6/uL (3.85-5.65); Red Cell Distribution Width 12.4 % (12.1-15.1)
[2024-07-07 06:51] LABS: Alanine Aminotransferase 70 U/L (0-41); Albumin Level 3.3 g/dL (3.5-5.2); Alkaline Phosphatase 81 U/L (40-130); Anion Gap 17.8 (5-19); Aspartate Amino Transferase 48 U/L (0-40); Blood Urea Nitrogen 17 mg/dL (8-23); Calcium 8.6 mg/dL (8.5-10.5); Carbon Dioxide 22 mmol/L (22-29); Chloride 97 mmol/L (98-107); Globulin 3.4 g/dL (1.3-4.6); Glucose 127 mg/dL (65-115); Osmolality Calculated 279 mOsm/kg (285-295); Potassium 3.8 mmol/L (3.5-5.1); Sodium 133 mmol/L (136-145); Total Bilirubin 0.6 mg/dL (0.15-1.2); Total Protein 6.7 g/dL (6.6-8.7)
--- NOTE | 2024-07-07 07:50 | PC.NURSE ---
Patient currently resting in bed. Reports feeling better and hungry. Patient is remain in afib at this time with controlled rate in 90s. Patient denies pain or needs. Will continue to monitor.
[2024-07-07] MEDS: pantoprazole DR 40 mg Tablet PO (08:03)
[2024-07-07] MEDS: enoxaparin 80 mg/0.8 mL Syringe SUBCUT ×2 (08:03→17:53)
[2024-07-07] MEDS: azithromycin 250 mg Tablet 500 MG PO (08:03)
[2024-07-07] MEDS: ipratropium-albuterol 3 mL Neb INHALATION (08:52)
[2024-07-07] MEDS: budesonide 0.5 mg/2 mL Neb INHALATION ×2 (08:52→20:26)
--- NOTE | 2024-07-07 13:25 | P.PN_ITS ---
Subjective 2 Subjective: Patient was able to be weaned off of Cardizem drip overnight. Echocardiogram remains pending. No new complaints today. Medications: Reviewed: Yes Vitals/I&O/Wt Last Vital Signs Temp 98.3 F 07/07/24 04:15 Pulse 90 07/07/24 12:00 Resp 19 H 07/07/24 12:00 BP 115/80 07/07/24 12:00 Pulse Ox 92 07/07/24 12:00 O2 Del Method Nasal Cannula 07/07/24 08:00 O2 Flow Rate 1 07/07/24 08:00 07/06/24 07/07/24 07/07/24 22:59 06:59 14:59 Intake Total 269.417 / 798.042 800 / 1598.042 660 / 660 Output Total 275 / 275 400 / 675 900 / 900 Balance -5.583 / 523.042 400 / 923.042 -240 / -240 Weight last 48 hrs Weight 76.34 kg Weight 76.1 kg Weight 73.482 kg Physical Exam 2 Narrative: GEN: Awake, alert and oriented, no acute distress, flushed, on room air CVS: S1S2 irregularly irregular, no tachycardia RS: Bilateral bronchial breath sounds with occasional rhonchi and crackles right more than left Abd: Soft, nt/nd , bs+ 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 SIRS: Tachycardic, Febrile, Leukocytosis Source: Pneumonia End organ damage: STANTON, A-fib Check lactic acid with reflex Patient did not receive full 30 mL/kg BW given concerns for A-fib with RVR, congestive heart failure NS at 50 cc/h for 1 bag. Watch for fluid overload. Monitor blood pressures. Keep mean artery pressure 65 mmHg. Check Blood culture, MRSA swab, procalcitonin, sputum culture. (2) Pneumonia: Chest x-ray consistent with bilateral pneumonia. Check sputum culture as above. Treatment for community-acquired pneumonia with IV ceftriaxone and was azithromycin. If MRSA swab positive will add coverage. (3) Atrial fibrillation with rapid ventricular response: New diagnosis. Currently on Cardizem drip. Wean keeping heart rate less than 100 bpm. Start on oral Cardizem 30 mg Q6 hourly. Check echocardiogram. Discussed anticoagulation for stroke prevention in detail with the patient. He is agreeable. Start on full dose Lovenox 1 mg/kg body weight Q12 hourly. Will plan to transition over to Eliquis on discharge. (4) Hypertension: Goal blood pressure less than 140/90 mmHg. Will continue to monitor. Qualifiers: Hypertension type: unspecified Qualified Code(s): I10 - Essential (primary) hypertension (5) Flu-like symptoms: Recent flulike symptoms. For now start on Pulmicort twice daily, ipratropium, Xopenex every 6 hourly. Oxygen supplementation keeping saturation over 88%. Plan Full code Clear liquid diet for now. If tolerating well with this transition to cardiac diet in morning. Full dose Lovenox will be sufficient for DVT prophylaxis Protonix OPD prophylaxis July 07, 2024 No new complaints today. Off Cardizem infusion. Currently on 30 mg p.o. every 6 hours. Heart rate ranging 90-100. Increase dose of Cardizem to 60 mg every 8 hours and closely monitor heart rate and blood pressure response. Continue Lovenox 1 mg/kg IV every 12 hours for anticoagulation with aim to transition to DOACs closer to discharge. Continue IV ceftriaxone and azithromycin for pneumonia. Kidney function is improving today with creatinine down to 1.4-1.0. Troponin series without significant elevation. Discontinue IV fluids. Will follow-up pending echocardiogram PDMP PDMP Reviewed: Not Reviewed Attestations 2 Medical Necessity Statement*: Increase Cardizem dose, closely monitor blood pressure response. Pending echocardiogram. Coding Level of Care Code Acute Code for [facility] Diagnoses Sepsis A41.9 Pneumonia J18.9 Atrial fibrillation with rapid ventricular response I48.91 Hypertension, unspecified type I10 Hypertension type: unspecified Flu-like symptoms R68.89
[2024-07-07] MEDS: dilTIAZem 30 mg Tablet 60 MG PO ×2 (14:22→21:35)
[2024-07-07] MEDS: cefTRIAXone 1,000 mg SDV 1000 MG IVP (14:22)
[2024-07-07 15:51] LABS: Influenza A NEGATIVE (Negative); Influenza B NEGATIVE (Negative); Respiratory Syncytial Virus Ce NEGATIVE (Negative); SARS-CoV-2 PCR NEGATIVE (Negative)
--- NOTE | 2024-07-07 18:53 | USCV_ITS ---
Ahsan Beltrán Age: 74 Gender: M : 1950 Exam Date: 07/07/2024 09:55 Ordering Phys: Wendy Pradhan MD Technologist: Elio Goff [place] [facility] [place]: afib BP: 113 / 78 HR: 100 Rhythm: Sinus Technical Quality: Adequate MEASUREMENTS (Male / Female) Normal Values 2D ECHO LV Diastolic Diameter PLAX 4.8 cm 4.2 - 5.9 / 3.9 - 5.3 cm IVS Diastolic Thickness 1.2 cm 0.6 - 1.0 / 0.6 - 0.9 cm IVS Systolic Thickness 1.3 cm LVPW Diastolic Thickness 1.6 cm 0.6 - 1.0 / 0.6 - 0.9 cm LVPW Systolic Thickness 2.1 cm LVOT Diameter 2.2 cm LV Ejection Fraction 2D Teich 59.4 % LV Ejection Fraction MOD 4C 78.6 % LV Ejection Fraction MOD 2C 59.0 % LV Ejection Fraction 2C AL 59.0 % LA Diameter 3.7 cm RA Systolic Volume 4C AL 54.2 ml RA Systolic Volume 4C MOD 54.1 ml LA Sys Volume AL 60.1 cm cubed LA Sys Volume Index AL 30.5 cm cubed/m squared Aorta at Sinotubular Diameter 2.7 cm IVC Diameter 1.8 cm M-MODE LA Ao Ratio MM 1.9 AV Cusp Separation MM 1.9 cm DOPPLER AV Peak Velocity 149.0 cm/s LVOT Peak Velocity 78.0 cm/s AV Area Cont Eq vti 2.6 cm squared AV Area Cont Eq pk 2.0 cm squared MV Peak Velocity 91.0 cm/s MV Area PHT 5.7 cm squared Mitral E to A Ratio 35.7 TV Peak Velocity 254.0 cm/s TR Peak Velocity 295.0 cm/s TR Peak Gradient 34.8 mmHg TR Mean Velocity 264.0 cm/s TR Mean Gradient 28.5 mmHg TR Velocity Time Integral 66.1 cm PV Peak Velocity 133.3 cm/s RV Ejection Time 0.2 s FINDINGS Left Ventricle Normal left ventricular size, systolic function and wall thickness, with no regional wall motion abnormalities. Left ventricular ejection fraction is estimated at 60 %. Grade III/IV diastolic dysfunction (restrictive filling pattern), severely elevated filling pressures. Right Ventricle The right ventricle is normal in size and function. Right Atrium The right atrium is normal in size. Left Atrium The left atrium is normal in size. Mitral Valve Mildly thickened mitral valve. No mitral valve stenosis. Trace mitral valve regurgitation. Aortic Valve Moderate aortic valve calcification. No aortic valve stenosis. Trace aortic valve regurgitation. Tricuspid Valve Structurally normal tricuspid valve without significant stenosis or regurgitation. Pulmonary artery systolic pressure is normal. Pulmonic Valve Structurally normal pulmonic valve without significant stenosis. There is no pulmonic regurgitation. Pericardium Normal pericardium without effusion. Aorta Normal ascending aorta dimension. IVC Dilated IVC. CONCLUSIONS Normal left ventricular size, systolic function and wall thickness, with no regional wall motion abnormalities. Left ventricular ejection fraction is estimated at 60 %. Grade III/IV diastolic dysfunction (restrictive filling pattern), severely elevated filling pressures. Mildly thickened mitral valve. No mitral valve stenosis. Trace mitral valve regurgitation. Moderate aortic valve calcification. No aortic valve stenosis. Trace aortic valve regurgitation. Structurally normal tricuspid valve without significant stenosis or regurgitation. Pulmonary artery systolic pressure is normal. There is no pericardial effusion. Right atrial pressure is around 15 mm of mercury. Karen Pinto MD (Electronically Signed) Final Date: 07 July 2024 18:05 S
[2024-07-08] VITALS (23 sets, daily range): BP systolic 91–141; BP diastolic 59–88; PULSE 79–140; RESP 14–27; TEMP 36.5–36.9; O2SAT 85–95; BMI 22.6
[2024-07-08] MEDS: levalbuterol 0.63 mg/3 mL Neb INHALATION ×3 (01:35→20:00)
[2024-07-08] MEDS: ipratropium 0.5 mg/2.5 mL Neb INHALATION ×3 (01:35→20:00)
[2024-07-08 04:19] LABS: Basophils # 0.1 10^3/uL (0.0-0.1); Basophils % 0.4 %; Eosinophils # 0.1 10^3/uL (0.0-0.8); Eosinophils % 0.7 %; Hematocrit 39.5 % (37-53); Lymphocytes # 0.8 10^3/uL (0.8-4.8); Lymphocytes % 6.6 %; Mean Corpuscular HGB Conc 34.2 g/dL (30-55); Mean Corpuscular Hemoglobin 32.5 pg (27-33); Mean Corpuscular Volume 95.2 fl (82-101); Mean Platelet Volume 10.1 fL (7.4-10.4); Monocytes # 0.8 10^3/uL (0.2-0.9); Monocytes % 7.1 %; Neutrophils # 9.75 10^3/uL (1.8-7.7); Neutrophils % 84.4 %; Nucleated Red Blood Cells % 0 %; Platelet Count 215 10^3/cmm (157-399); Red Blood Count 4.15 10^6/uL (3.85-5.65); Red Cell Distribution Width 12.2 % (12.1-15.1); White Blood Count 11.55 10^3/uL (3.29-11.43)
[2024-07-08 04:37] LABS: Alanine Aminotransferase 78 U/L (0-41); Albumin Level 3.2 g/dL (3.5-5.2); Alkaline Phosphatase 67 U/L (40-130); Anion Gap 16.9 (5-19); Aspartate Amino Transferase 57 U/L (0-40); Blood Urea Nitrogen 13 mg/dL (8-23); Calcium 8.7 mg/dL (8.5-10.5); Carbon Dioxide 25 mmol/L (22-29); Chloride 97 mmol/L (98-107); Globulin 3.5 g/dL (1.3-4.6); Glucose 126 mg/dL (65-115); Osmolality Calculated 282 mOsm/kg (285-295); Potassium 3.9 mmol/L (3.5-5.1); Sodium 135 mmol/L (136-145); Total Bilirubin 0.5 mg/dL (0.15-1.2); Total Protein 6.7 g/dL (6.6-8.7)
[2024-07-08] MEDS: dilTIAZem 30 mg Tablet 60 MG PO (05:02)
[2024-07-08] MEDS: enoxaparin 80 mg/0.8 mL Syringe SUBCUT ×2 (06:23→18:20)
[2024-07-08] MEDS: azithromycin 250 mg Tablet 500 MG PO (08:23)
[2024-07-08] MEDS: pantoprazole DR 40 mg Tablet PO (08:23)
[2024-07-08] MEDS: budesonide 0.5 mg/2 mL Neb INHALATION ×2 (08:48→20:00)
[2024-07-08] MEDS: metoprolol tartrate 25 mg Tablet PO ×2 (11:41→20:14)
--- NOTE | 2024-07-08 12:51 | USR_ITS ---
PROCEDURE INFORMATION: Exam: US Duplex Right Lower Extremity Veins, Limited Exam date and time: 07/08/2024 6:31 PM Age: 74 years old Clinical indication: Screening exam; Assess for dvt TECHNIQUE: Imaging protocol: Real-time duplex ultrasound of the right extremity with 2-D portillo scale, color Doppler flow and spectral waveform analysis including responses to compression and other maneuvers (when performed) with image documentation. Limited exam was focused on the right lower extremity veins. COMPARISON: MR knee RT wo con* [id number] 03/03/2022 10:19 AM FINDINGS: Right deep veins: Unremarkable. The common femoral, femoral, proximal profunda femoral and popliteal veins are patent without thrombus. Normal Doppler waveforms. Normal compressibility and/or augmentation response. Superficial veins: Greater saphenous vein at the saphenofemoral junction is patent without thrombus. Soft tissues: Unremarkable. US/[place] [id number] IMPRESSION: No evidence of deep vein thrombosis.
--- NOTE | 2024-07-08 12:52 | P.PN_ITS ---
Subjective 2 Subjective: Patient continues to be tachycardic. On telemetry appearing to be sinus tachycardia now with heart rate ranging between 100-1 10. Medications: Reviewed: Yes Vitals/I&O/Wt Last Vital Signs Temp 98.2 F 07/08/24 05:00 Pulse 114 H 07/08/24 12:00 Resp 23 H 07/08/24 12:00 BP 107/80 07/08/24 12:00 Pulse Ox 91 07/08/24 12:00 O2 Del Method Nasal Cannula 07/08/24 08:48 O2 Flow Rate 1.5 07/08/24 08:48 07/07/24 07/08/24 07/08/24 22:59 06:59 14:59 Intake Total 915 / 2515.833 700 / 3215.833 872 / 872 Output Total 975 / 1875 1400 / 3275 350 / 350 Balance -60 / 640.833 -700 / -59.167 522 / 522 Weight last 48 hrs Weight 75.886 kg Weight 76.34 kg Weight 76.1 kg Physical Exam 2 Narrative: GEN: Awake, alert and oriented, no acute distress, on supplemntal 02 CVS: S1S2 irregularly irregular, no tachycardia RS: Bilateral scattered crackles Abd: Soft, nt/nd , bs+ 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 SIRS: Tachycardic, Febrile, Leukocytosis Source: Pneumonia End organ damage: STANTON, A-fib Check lactic acid with reflex Patient did not receive full 30 mL/kg BW given concerns for A-fib with RVR, congestive heart failure NS at 50 cc/h for 1 bag. Watch for fluid overload. Monitor blood pressures. Keep mean artery pressure 65 mmHg. Check Blood culture, MRSA swab, procalcitonin, sputum culture. (2) Pneumonia: Chest x-ray consistent with bilateral pneumonia. Check sputum culture as above. Treatment for community-acquired pneumonia with IV ceftriaxone and was azithromycin. If MRSA swab positive will add coverage. (3) Atrial fibrillation with rapid ventricular response: New diagnosis. Currently on Cardizem drip. Wean keeping heart rate less than 100 bpm. Start on oral Cardizem 30 mg Q6 hourly. Check echocardiogram. Discussed anticoagulation for stroke prevention in detail with the patient. He is agreeable. Start on full dose Lovenox 1 mg/kg body weight Q12 hourly. Will plan to transition over to Eliquis on discharge. (4) Hypertension: Goal blood pressure less than 140/90 mmHg. Will continue to monitor. Qualifiers: Hypertension type: unspecified Qualified Code(s): I10 - Essential (primary) hypertension (5) Flu-like symptoms: Recent flulike symptoms. For now start on Pulmicort twice daily, ipratropium, Xopenex every 6 hourly. Oxygen supplementation keeping saturation over 88%. Plan Full code Clear liquid diet for now. If tolerating well with this transition to cardiac diet in morning. Full dose Lovenox will be sufficient for DVT prophylaxis Protonix OPD prophylaxis July 07, 2024 No new complaints today. Off Cardizem infusion. Currently on 30 mg p.o. every 6 hours. Heart rate ranging 90-100. Increase dose of Cardizem to 60 mg every 8 hours and closely monitor heart rate and blood pressure response. Continue Lovenox 1 mg/kg IV every 12 hours for anticoagulation with aim to transition to DOACs closer to discharge. Continue IV ceftriaxone and azithromycin for pneumonia. Kidney function is improving today with creatinine down to 1.4-1.0. Troponin series without significant elevation. Discontinue IV fluids. Will follow-up pending echocardiogram July 08, 2024. Leukocytosis is improving. Currently on 1.5 L/min supplemental O2. Heart rate still hovering around 100-1 10. Will change Cardizem to metoprolol 25 mg p.o. twice daily today and assess for heart rate response. Obtain twelve-lead EKG. On telemetry appearing to be sinus tachycardia today. Echocardiogram showing LVEF of 60%, grade 3 diastolic dysfunction. Severely elevated filling pressures. Start Lasix 20 mg IV every 24 hours. Evaluate kidney function and urine output closely. Complaining of pain around the right knee. Patient had known history of inflammatory arthritis for which she takes diclofenac. Will resume diclofenac 75 mg p.o. twice daily and closely monitor kidney function. Noted to have very minimal swelling just above the knee joint medially. No signs of septic arthritis. Favor synovitis to be the cause. Will evaluate lower extremity ultrasound to rule out DVT. PDMP PDMP Reviewed: Not Reviewed Attestations 2 Medical Necessity Statement*: Change Cardizem to metoprolol, closely monitor blood pressure and heart rate response. start IV diuresis. Continue IV antibiotics. Coding Level of Care Code Acute Code for Chg Fwd High MDM includes number and complexity of problems actively addressed during encounter, amount and/or complexity of data reviewed/ordered and described risk of complication, morbidity or mortality of management as documented Diagnoses Sepsis A41.9 Pneumonia J18.9 Atrial fibrillation with rapid ventricular response I48.91 Hypertension, unspecified type I10 Hypertension type: unspecified Flu-like symptoms R68.89
[2024-07-08] MEDS: FUROsemide 10 mg/mL SDV 2mL 20 MG IVP (13:15)
--- NOTE | 2024-07-08 13:18 | ECG_ITS ---
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: : 1950 Requested By: Wendy Pradhan Order Number: [id number] Kurt MD: RONNIE MOORE Measurements Intervals Counselor Rate: 100 P: 0 CO: 0 QRS: -9 QRSD: 118 T: -1 QT: 355 QTc: 460 Interpretive Statements ATRIAL FIBRILLATION WITH RAPID VENTRICULAR RESPONSE MODERATE INTRAVENTRICULAR CONDUCTION DELAY [110+ ms QRS DURATION] ABNORMAL RHYTHM ECG Compared to ECG 07/06/2024 18:06:57 Intraventricular conduction delay now present Myocardial infarct finding no longer present Electronically Signed On 07-08-2024 21:06:25 BALE OPENER by RONNIE MOORE [email or web address]
[2024-07-08] MEDS: diclofenac 75 mg DR Tablet PO ×2 (14:27→18:16)
--- NOTE | 2024-07-08 14:37 | PC.NURSE ---
Transferred to [facility] via wheelchair. All belongings with patient. Patient oriented to Yuki vance RN at bedside.
[2024-07-08] MEDS: cefTRIAXone 1,000 mg SDV 1000 MG IVP (15:23)
[2024-07-09] VITALS (12 sets, daily range): BP systolic 83–118; BP diastolic 67–86; PULSE 81–165; RESP 12–22; TEMP 36.2–36.9; O2SAT 90–98
[2024-07-09] MEDS: levalbuterol 0.63 mg/3 mL Neb INHALATION ×4 (02:38→21:22)
[2024-07-09] MEDS: ipratropium 0.5 mg/2.5 mL Neb INHALATION ×4 (02:38→21:22)
[2024-07-09] MEDS: dilTIAZem 5 mg/mL SDV 5 mL 10 MG IVP (03:20)
[2024-07-09] MEDS: dilTIAZem 100 MG in sodium chloride 0.9% (add-van) 100 ML IV (05:10)
[2024-07-09] MEDS: FUROsemide 10 mg/mL SDV 2mL 20 MG IVP (07:02)
[2024-07-09] MEDS: enoxaparin 80 mg/0.8 mL Syringe SUBCUT ×2 (07:02→18:04)
[2024-07-09 07:39] LABS: Basophils # 0.1 10^3/uL (0.0-0.1); Basophils % 0.7 %; Eosinophils # 0.2 10^3/uL (0.0-0.8); Eosinophils % 1.7 %; Hematocrit 42.2 % (37-53); Lymphocytes % 8.3 %; Mean Corpuscular HGB Conc 33.9 g/dL (30-55); Mean Corpuscular Hemoglobin 32.4 pg (27-33); Mean Corpuscular Volume 95.7 fl (82-101); Mean Platelet Volume 9.3 fL (7.4-10.4); Monocytes # 0.8 10^3/uL (0.2-0.9); Neutrophils # 9.81 10^3/uL (1.8-7.7); Neutrophils % 81.6 %; Nucleated Red Blood Cells % 0 %; Platelet Count 261 10^3/cmm (157-399); Red Blood Count 4.41 10^6/uL (3.85-5.65); Red Cell Distribution Width 12.2 % (12.1-15.1); White Blood Count 12.04 10^3/uL (3.29-11.43)
[2024-07-09 07:56] LABS: Alanine Aminotransferase 76 U/L (0-41); Albumin Level 3.2 g/dL (3.5-5.2); Alkaline Phosphatase 65 U/L (40-130); Anion Gap 17.1 (5-19); Aspartate Amino Transferase 48 U/L (0-40); Blood Urea Nitrogen 15 mg/dL (8-23); Calcium 8.9 mg/dL (8.5-10.5); Carbon Dioxide 25 mmol/L (22-29); Chloride 95 mmol/L (98-107); Globulin 3.6 g/dL (1.3-4.6); Glucose 112 mg/dL (65-115); Osmolality Calculated 278 mOsm/kg (285-295); Potassium 4.1 mmol/L (3.5-5.1); Sodium 133 mmol/L (136-145); Total Bilirubin 0.5 mg/dL (0.15-1.2); Total Protein 6.8 g/dL (6.6-8.7)
[2024-07-09] MEDS: azithromycin 250 mg Tablet 500 MG PO (08:51)
[2024-07-09] MEDS: metoprolol tartrate 25 mg Tablet PO (08:52)
[2024-07-09] MEDS: pantoprazole DR 40 mg Tablet PO (08:52)
[2024-07-09] MEDS: budesonide 0.5 mg/2 mL Neb INHALATION ×2 (09:31→21:22)
--- NOTE | 2024-07-09 09:50 | PC.CHAP ---
Pastoral Care Encounter/Spiritual Assessment Type of Contact [] Declined vice president of customer service visit [] Patient/Family/Request visit [] Outpatient visit [] Follow-up visit [] Physician referral [] Code/Alert [x] Routine visit [] Staff referral [] Actively dying [] Patient sleeping [] Family support [] [] Out of room [] Palliative care [] [] Receiving care in room [] Pre-surgical visit [] Trauma [] Long length of stay [] ICU visit [] Other: Relational/Emotional Strength [] Patient feels connected with others/family/visitors/staff [] Distress [] Loneliness/isolation [] Abandonment Spirituality of Patient [x] Person of Shavon [] Attends Hinduism of their Shavon [x] Believes in Prayer [] Reads Bible or Worship materials [] There are Spiritual issues to be addressed Baseball Player Interventions [x] Prayer [x] Active listening [] Non-anxious presence [] Spiritual/emotional support [] Crisis/trauma care [] Spiritual counseling [] Bereavement support [] Provided bereavement packet [x] Provided Bible/devotional materials [] Provided toy/stuffed animal, coloring book to patient or family member [] Provided Communion [] Anointing/[place] [] Salvation [x] Completed spiritual assessment [] Other: Impact on Illness or Injury [] Angry [] Fearful [] Anxious [] Often cries [] Exhaustion [] Unable to work [] Unable to attend caodaism [] Unable to walk/stand [] Unable to read [] Unable to drive [] Unable to eat/drink [] Unable to sleep [] Unable to be with family [] Patient intubated [] Other: Summary Time spent with patient 5 min
[2024-07-09] MEDS: diclofenac 75 mg DR Tablet PO ×2 (11:41→17:11)
--- NOTE | 2024-07-09 13:29 | P.PN_ITS ---
Subjective 2 Subjective: Seen this morning. Patient back on Cardizem drip overnight secondary to heart rate in the 150s. Asymptomatic at this time. Vitals/I&O/Wt Last Vital Signs Temp 98.4 F 07/09/24 11:48 Pulse 101 H 07/09/24 11:48 Resp 22 H 07/09/24 11:48 BP 118/75 07/09/24 11:48 Pulse Ox 92 07/09/24 11:48 O2 Del Method Room Air 07/09/24 11:48 O2 Flow Rate 1.5 07/08/24 08:48 07/08/24 07/09/24 07/09/24 22:59 06:59 14:59 Intake Total 360 / 1454 89.75 / 1543.75 360 / 360 Output Total 500 / 1200 Balance 360 / 754 -410.25 / 343.75 360 / 360 Weight last 48 hrs Weight 74.571 kg Weight 75.886 kg Physical Exam 2 Narrative: GEN: Awake, alert and oriented, no acute distress, now on room air. CVS: S1S2 irregularly irregular, no tachycardia RS: Clear to auscultation bilaterally no wheezes no rhonchi no crackles. 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 SIRS: Tachycardic, Febrile, Leukocytosis Source: Pneumonia End organ damage: STANTON, A-fib Check lactic acid with reflex Patient did not receive full 30 mL/kg BW given concerns for A-fib with RVR, congestive heart failure NS at 50 cc/h for 1 bag. Watch for fluid overload. Monitor blood pressures. Keep mean artery pressure 65 mmHg. Check Blood culture, MRSA swab, procalcitonin, sputum culture. (2) Pneumonia: Chest x-ray consistent with bilateral pneumonia. Check sputum culture as above. Treatment for community-acquired pneumonia with IV ceftriaxone and was azithromycin. If MRSA swab positive will add coverage. (3) Atrial fibrillation with rapid ventricular response: New diagnosis. Currently on Cardizem drip. Wean keeping heart rate less than 100 bpm. Start on oral Cardizem 30 mg Q6 hourly. Check echocardiogram. Discussed anticoagulation for stroke prevention in detail with the patient. He is agreeable. Start on full dose Lovenox 1 mg/kg body weight Q12 hourly. Will plan to transition over to Eliquis on discharge. (4) Hypertension: Goal blood pressure less than 140/90 mmHg. Will continue to monitor. Qualifiers: Hypertension type: unspecified Qualified Code(s): I10 - Essential (primary) hypertension (5) Flu-like symptoms: Recent flulike symptoms. For now start on Pulmicort twice daily, ipratropium, Xopenex every 6 hourly. Oxygen supplementation keeping saturation over 88%. Plan Full code Clear liquid diet for now. If tolerating well with this transition to cardiac diet in morning. Full dose Lovenox will be sufficient for DVT prophylaxis Protonix OPD prophylaxis July 07, 2024 No new complaints today. Off Cardizem infusion. Currently on 30 mg p.o. every 6 hours. Heart rate ranging 90-100. Increase dose of Cardizem to 60 mg every 8 hours and closely monitor heart rate and blood pressure response. Continue Lovenox 1 mg/kg IV every 12 hours for anticoagulation with aim to transition to DOACs closer to discharge. Continue IV ceftriaxone and azithromycin for pneumonia. Kidney function is improving today with creatinine down to 1.4-1.0. Troponin series without significant elevation. Discontinue IV fluids. Will follow-up pending echocardiogram July 08, 2024. Leukocytosis is improving. Currently on 1.5 L/min supplemental O2. Heart rate still hovering around 100-1 10. Will change Cardizem to metoprolol 25 mg p.o. twice daily today and assess for heart rate response. Obtain twelve-lead EKG. On telemetry appearing to be sinus tachycardia today. Echocardiogram showing LVEF of 60%, grade 3 diastolic dysfunction. Severely elevated filling pressures. Start Lasix 20 mg IV every 24 hours. Evaluate kidney function and urine output closely. Complaining of pain around the right knee. Patient had known history of inflammatory arthritis for which she takes diclofenac. Will resume diclofenac 75 mg p.o. twice daily and closely monitor kidney function. Noted to have very minimal swelling just above the knee joint medially. No signs of septic arthritis. Favor synovitis to be the cause. Will evaluate lower extremity ultrasound to rule out DVT. 07/09/2024 Patient still in uncontrolled atrial fibrillation however asymptomatic at this time. Increase metoprolol to 50 twice daily. Continue Cardizem drip at this time. Once heart rate better controlled we will switch to oral. Continue diuresis with Lasix 20 IV daily. ? Lower extremity Doppler ruled out DVT. Continue therapeutic Lovenox at this time we will aim to switch to Eliquis at discharge. Keep potassium above 4 magnesium above 2. Liver enzymes slightly elevated. Will check hepatitis profile. Will check CT abdomen. PDMP PDMP Reviewed: Not Reviewed Attestations 2 Medical Necessity Statement*: Continue Cardizem drip at this time. Diagnoses Sepsis A41.9 Pneumonia J18.9 Atrial fibrillation with rapid ventricular response I48.91 Hypertension, unspecified type I10 Hypertension type: unspecified Flu-like symptoms R68.89
--- NOTE | 2024-07-09 13:31 | CT_ITS ---
WS: [id number] CT ABDOMEN PELVIS TECHNIQUE: Noncontrast CT of the abdomen and pelvis with coronal and sagittal reformatted images. CLINICAL INFORMATION: elevated liver enzymes COMPARISON: None. DLP: 517.[address] scans at [facility] use at least one of these dose optimization techniques: automated exposure control; mA and/or kV adjustment per patient size (includes targeted exams where dose is matched to clinical indication); or iterative reconstruction. FINDINGS: Patchy infiltrates in the lung bases bilaterally and lingula. Findings compatible with pneumonia. Mild hepatomegaly. Otherwise normal noncontrast liver and spleen. Tiny esophageal hiatal hernia. Noncontrast pancreas is normal. Adrenal glands are normal. Aortic calcification. No hydronephrosis in either kidney. Urine distended bladder. Enlarged prostate measuring 4.1 cm. Recommend correlation PSA. Sigmoid diverticulosis. Normal appendix in the RIGHT lower quadrant. CT/CT abdomen pelvis wo con [id number] IMPRESSION: 1. Mild hepatomegaly. Noncontrast liver is otherwise normal. 2. Tiny esophageal hiatal hernia. 3. Bibasilar airspace infiltrates also seen in the lingula compatible with pne umonia. 4. No hydronephrosis in either kidney. 5. Urine distended bladder with enlarged prostate compatible with bladder outl et obstruction. Prostate measures 4.1 cm. Recommend correlation PSA. 6. No other acute findings.
[2024-07-09] MEDS: cefTRIAXone 1,000 mg SDV 1000 MG IVP (14:34)
[2024-07-09 15:06] LABS: Hepatitis A Antibody IgM Non-Reactive (Nonreactive); Hepatitis B Core AB, Total Non-Reactive (Nonreactive); Hepatitis B Surface AB < 3.5 (11.5-1000); Hepatitis B Surface Antigen Non-Reactive (Nonreactive); Hepatitis C Virus Antibody Non-Reactive (Nonreactive)
[2024-07-09] MEDS: dilTIAZem 100 MG in sodium chloride 0.9% (add-van) 100 ML 7.5 MG IV (17:11)
[2024-07-09] MEDS: metoprolol tartrate 25 mg Tablet 50 MG PO (21:02)
[2024-07-10] VITALS (11 sets, daily range): BP systolic 88–117; BP diastolic 67–96; PULSE 79–109; RESP 13–24; TEMP 36.4–36.8; O2SAT 90–95
--- NOTE | 2024-07-10 01:37 | PC.NURSE ---
diltiazem restarted after patient maintaining heart rate in the low 100s while resting. Started back at 5.
[2024-07-10 04:06] LABS: Basophils # 0.1 10^3/uL (0.0-0.1); Basophils % 0.7 %; Eosinophils # 0.3 10^3/uL (0.0-0.8); Eosinophils % 3.2 %; Hematocrit 41.9 % (37-53); Lymphocytes # 1.2 10^3/uL (0.8-4.8); Lymphocytes % 11.7 %; Mean Corpuscular HGB Conc 33.7 g/dL (30-55); Mean Corpuscular Hemoglobin 31.8 pg (27-33); Mean Corpuscular Volume 94.4 fl (82-101); Mean Platelet Volume 9.4 fL (7.4-10.4); Monocytes # 0.7 10^3/uL (0.2-0.9); Monocytes % 6.7 %; Neutrophils # 7.65 10^3/uL (1.8-7.7); Neutrophils % 76.9 %; Nucleated Red Blood Cells % 0 %; Platelet Count 290 10^3/cmm (157-399); Red Blood Count 4.44 10^6/uL (3.85-5.65); Red Cell Distribution Width 12.1 % (12.1-15.1); White Blood Count 9.96 10^3/uL (3.29-11.43)
[2024-07-10 04:27] LABS: Alanine Aminotransferase 71 U/L (0-41); Alkaline Phosphatase 68 U/L (40-130); Anion Gap 16.1 (5-19); Aspartate Amino Transferase 46 U/L (0-40); Blood Urea Nitrogen 16 mg/dL (8-23); Carbon Dioxide 26 mmol/L (22-29); Chloride 96 mmol/L (98-107); Globulin 3.6 g/dL (1.3-4.6); Glucose 101 mg/dL (65-115); Magnesium 2.1 mg/dL (1.7-2.3); Osmolality Calculated 279 mOsm/kg (285-295); Potassium 4.1 mmol/L (3.5-5.1); Sodium 134 mmol/L (136-145); Total Bilirubin 0.4 mg/dL (0.15-1.2); Total Protein 6.6 g/dL (6.6-8.7)
[2024-07-10] MEDS: FUROsemide 10 mg/mL SDV 2mL 20 MG IVP (06:21)
[2024-07-10] MEDS: enoxaparin 80 mg/0.8 mL Syringe SUBCUT ×2 (06:21→17:59)
[2024-07-10] MEDS: diclofenac 75 mg DR Tablet PO ×2 (08:02→17:59)
[2024-07-10] MEDS: pantoprazole DR 40 mg Tablet PO (08:02)
[2024-07-10] MEDS: metoprolol tartrate 25 mg Tablet 50 MG PO (08:02)
[2024-07-10] MEDS: azithromycin 250 mg Tablet 500 MG PO (08:02)
[2024-07-10] MEDS: dilTIAZem 30 mg Tablet PO ×3 (08:41→20:06)
[2024-07-10] MEDS: ipratropium 0.5 mg/2.5 mL Neb INHALATION ×3 (08:45→21:48)
[2024-07-10] MEDS: levalbuterol 0.63 mg/3 mL Neb INHALATION ×3 (08:45→21:48)
[2024-07-10] MEDS: budesonide 0.5 mg/2 mL Neb INHALATION ×2 (08:45→21:47)
--- NOTE | 2024-07-10 11:14 | P.PN_ITS ---
Vitals/I&O/Wt Last Vital Signs Temp 97.5 F L 07/10/24 08:00 Pulse 93 07/10/24 08:45 Resp 18 07/10/24 08:45 BP 107/76 07/10/24 08:00 Pulse Ox 92 07/10/24 08:45 O2 Del Method Nasal Cannula 07/10/24 08:45 O2 Flow Rate 2 07/10/24 08:45 07/09/24 07/10/24 07/10/24 22:59 06:59 14:59 Intake Total 611.000 / 1494.667 13.167 / 1507.834 360 / 360 Output Total 400 / 400 1750 / 2150 1100 / 1100 Balance 211.000 / 1094.667 -1736.833 / -642.166 -740 / -740 Weight last 48 hrs Weight 74.571 kg Weight 74.571 kg Physical Exam 2 Narrative: GEN: Awake, alert and oriented, no acute distress, now on room air. CVS: S1S2 irregularly irregular, no tachycardia RS: Clear to auscultation bilaterally no wheezes no rhonchi no crackles. 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 SIRS: Tachycardic, Febrile, Leukocytosis Source: Pneumonia End organ damage: STANTON, A-fib Check lactic acid with reflex Patient did not receive full 30 mL/kg BW given concerns for A-fib with RVR, congestive heart failure NS at 50 cc/h for 1 bag. Watch for fluid overload. Monitor blood pressures. Keep mean artery pressure 65 mmHg. Check Blood culture, MRSA swab, procalcitonin, sputum culture. (2) Pneumonia: Chest x-ray consistent with bilateral pneumonia. Check sputum culture as above. Treatment for community-acquired pneumonia with IV ceftriaxone and was azithromycin. If MRSA swab positive will add coverage. (3) Atrial fibrillation with rapid ventricular response: New diagnosis. Currently on Cardizem drip. Wean keeping heart rate less than 100 bpm. Start on oral Cardizem 30 mg Q6 hourly. Check echocardiogram. Discussed anticoagulation for stroke prevention in detail with the patient. He is agreeable. Start on full dose Lovenox 1 mg/kg body weight Q12 hourly. Will plan to transition over to Eliquis on discharge. (4) Hypertension: Goal blood pressure less than 140/90 mmHg. Will continue to monitor. Qualifiers: Hypertension type: unspecified Qualified Code(s): I10 - Essential (primary) hypertension (5) Flu-like symptoms: Recent flulike symptoms. For now start on Pulmicort twice daily, ipratropium, Xopenex every 6 hourly. Oxygen supplementation keeping saturation over 88%. Plan Full code Clear liquid diet for now. If tolerating well with this transition to cardiac diet in morning. Full dose Lovenox will be sufficient for DVT prophylaxis Protonix OPD prophylaxis July 07, 2024 No new complaints today. Off Cardizem infusion. Currently on 30 mg p.o. every 6 hours. Heart rate ranging 90-100. Increase dose of Cardizem to 60 mg every 8 hours and closely monitor heart rate and blood pressure response. Continue Lovenox 1 mg/kg IV every 12 hours for anticoagulation with aim to transition to DOACs closer to discharge. Continue IV ceftriaxone and azithromycin for pneumonia. Kidney function is improving today with creatinine down to 1.4-1.0. Troponin series without significant elevation. Discontinue IV fluids. Will follow-up pending echocardiogram July 08, 2024. Leukocytosis is improving. Currently on 1.5 L/min supplemental O2. Heart rate still hovering around 100-1 10. Will change Cardizem to metoprolol 25 mg p.o. twice daily today and assess for heart rate response. Obtain twelve-lead EKG. On telemetry appearing to be sinus tachycardia today. Echocardiogram showing LVEF of 60%, grade 3 diastolic dysfunction. Severely elevated filling pressures. Start Lasix 20 mg IV every 24 hours. Evaluate kidney function and urine output closely. Complaining of pain around the right knee. Patient had known history of inflammatory arthritis for which she takes diclofenac. Will resume diclofenac 75 mg p.o. twice daily and closely monitor kidney function. Noted to have very minimal swelling just above the knee joint medially. No signs of septic arthritis. Favor synovitis to be the cause. Will evaluate lower extremity ultrasound to rule out DVT. 07/09/2024 Patient still in uncontrolled atrial fibrillation however asymptomatic at this time. Increase metoprolol to 50 twice daily. Continue Cardizem drip at this time. Once heart rate better controlled we will switch to oral. Continue diuresis with Lasix 20 IV daily. ? Lower extremity Doppler ruled out DVT. Continue therapeutic Lovenox at this time we will aim to switch to Eliquis at discharge. Keep potassium above 4 magnesium above 2. Liver enzymes slightly elevated. Will check hepatitis profile. Will check CT abdomen. 07/10/2024 Patient remains in persistent atrial fibrillation with RVR. He has been on 5 of Cardizem drip last 24 to 36 hours. Will switch to Cardizem 30 every 6 and continue metoprolol 50 twice daily. This is new onset A-fib. Discussed with cardiology regarding possible SELINA cardioversion. Consult Dr. Weldon. Await recommendations. Continue therapeutic Lovenox at this time. Mild apparent megaly noted on CT abdomen. Distended bladder with enlarged prostate compatible with bladder outlet obstruction. Patient will need to follow-up with urology at discharge. PDMP PDMP Reviewed: Not Reviewed Attestations 2 Medical Necessity Statement*: Remains in persistent A-fib Diagnoses Sepsis A41.9 Pneumonia J18.9 Atrial fibrillation with rapid ventricular response I48.91 Hypertension, unspecified type I10 Hypertension type: unspecified Flu-like symptoms R68.89
[2024-07-10] MEDS: cefTRIAXone 1,000 mg SDV 1000 MG IVP (13:59)
--- NOTE | 2024-07-10 17:34 | P.CONIM_ITS ---
Providers/Reason For Consult 2 Consulting Physician/Specialty*: JV Weldon MD/cardiology Reason for Consult*: Patient with atrial fibrillation and rapid ventricular rate. Not responding to AV ej blocking agents. Requesting Physician: Dr. Lowery Attending Physician: Bia Lowery MD Primary Care Provider: ASYA Bales History of Present Illness History of Present Illness Ahsan Beltrán is a 74 year old male is admitted to hospital with features of pneumonia. He was having cough , dyspnea exertion and a low-grade fever for a week or so. He was found to be hypoxic with SpO2 in the 60s by the primary care provider. In the emergency room, he was found to be in atrial fibrillation with rapid ventricular rate. He is admitted to hospital for further evaluation management. According to the patient, he has significant improvement of the shortness of breath, since the hospital admission. He never had any chest pain or palpitations. No dizziness or syncopal episodes. Even now he does not seems to have any significant palpitation or shortness of breath. Prior to this current event, the patient has been very active. 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 His exercise tolerance has not significantly changed in the recent past. No history of hypertension, diabetes. He has a longstanding history of dyslipidemia and has been taking Lipitor 10 mg p.o. daily. He drinks every night 4-5 beers. He has been doing this for many years. He has not had any palpitations or chest discomfort lately. Many of his paternal uncles had heart attacks in their 60s and 70s. One of his younger brothers also had a mild heart attack recently. Details are not available. Review of Systems 2 Narrative: CONSTITUTIONAL: No fever or chills. EYES: No blurring of vision or other visual disturbances lately. ENT: No hoarseness of voice, auditory disturbances or sore throat. CARDIOVASCULAR: As mentioned above. RESPIRATORY: Cough and shortness of breath as mentioned above GASTROINTESTINAL: No hematemesis or melena. GENITOURINARY: No dysuria or hematuria. INTEGUMENTARY: No skin rashes or history of skin cancer. NEURO: No transient ischemic attacks or amaurosis. PSYCHIATRIC: No history of psychosis or major depression. HEMATOLOGIC: No bleeding disorders or significant anemia. ENDOCRINE: No history of polyuria or polydipsia. MUSCULOSKELETAL: No recent joint pain or swelling. ALLERGY/IMMUNOLOGY: As mentioned above. Medications/Allergies Home Medications ?Medication ?Instructions ?Recorded ?Confirmed ?Last Taken ?Type aspirin 81 mg tablet,delayed 81 mg PO DAILY #30 tabs 0 11/07/23 07/06/24 07/05/24 Rx release (Adult Aspirin Regimen) cholecalciferol (vitamin D3) 1,250 50,000 unit PO .vic albarado #12 caps 11/07/23 07/06/24 Unknown Rx mcg (50,000 unit) capsule albuterol sulfate 2.5 mg/3 mL 2.5 mg (3 mL) inhalation QID PRN 07/05/24 07/06/24 Unknown Rx (0.083 %) solution for nebulization shortness of breat h or wheezing #75 mL compressor, for nebulizer #1 ea 07/05/24 07/06/24 Unkn own Rx nebulizer accessories #1 ea 07/05/24 07/06/24 Unkn own Rx atorvastatin 10 mg tablet 10 mg PO DAILY 07/06/24 02/12/2107/05/24 History diclofenac sodium 75 mg 75 mg PO DAILY pain 07/06/24 07/06/24 07/05/24 History tablet,delayed release Allergies Allergy/AdvReac Type Severity Reaction Status Date / Time Penicillins Allergy Intermediate rash Verified 07/05/24 14:07 Current Medications Generic Name Dose Route Start Last Admin Trade Name Marceloq PRN Reason Stop Dose Admin Azithromycin 500 mg 07/07/24 09:00 07/10/24 08:02 Azithromycin 250 Mg Tablet PO 500 mg DAILY JAN Administration Protocol Budesonide 0.5 mg 07/06/24 20:00 07/10/24 08:45 Budesonide 0.5 Mg/2 Ml Neb INHALATION 0.5 mg BID.RESPIRATORY JAN Administration Ceftriaxone Sodium 1,000 mg 07/06/24 14:15 07/10/24 13:59 Ceftriaxone 1,000 Mg Sdv IVP 1,000 mg Q24H JAN Administration Protocol Diclofenac Sodium 75 mg 07/08/24 12:50 07/10/24 08:[address] Tablet PO 75 mg BID JAN Administration Diltiazem HCl 30 mg 07/10/24 08:45 07/10/24 13:59 Diltiazem 30 Mg Tablet PO 30 mg Q6H JAN Administration Enoxaparin Sodium 80 mg 07/06/24 19:00 07/10/24 06:21 Enoxaparin 80 Mg/0.8 Ml Syringe SUBCUT 80 mg Q12H JAN Administration Furosemide 20 mg 07/09/24 07:00 07/10/24 06:21 Furosemide 10 Mg/Ml Sdv 2ml IVP 20 mg Q24H JAN Administration Diltiazem HCl 100 mg/ Sodium 100 mls @ 0 mls/hr 07/09/24 04:45 07/10/24 04:14 Chloride IV 2.5 mg/hr .Q0M JAN 2.5 mls/hr Titration Protocol Per Protocol Ipratropium [place] 0.5 mg 07/06/24 20:00 07/10/24 13:30 Ipratropium 0.5 Mg/2.5 Ml Neb INHALATION 0.5 mg Q6H.RESP JAN Administration Levalbuterol HCl 0.63 mg 07/06/24 20:00 07/10/24 13:30 Levalbuterol 0.63 Mg/3 Ml Neb INHALATION 0.63 mg Q6H.RESP JAN Administration Metoprolol Tartrate 50 mg 07/09/24 21:00 07/10/24 08:02 Metoprolol Tartrate 25 Mg Tablet PO 50 mg BID@0900,2100 JAN Administration Pantoprazole Sodium 40 mg 07/07/24 09:00 07/10/24 08:[address] 40 Mg Tablet PO 40 mg DAILY JAN Administration PFSH Acute 2 PFSH: Medical History Family history of Basile's disease Carotid disease, bilateral Hypertension Hyperlipidemia Surgical History Status post right inguinal hernia repair (09/10/21) History of left inguinal hernia repair H/O hemorrhoidectomy Family History Mother CAD (coronary artery disease) Family/Other CAD (coronary artery disease) Other Basile's chorea Social History Smoking and tobacco/nicotine status: former use of tobacco/nicotine Second hand smoke exposure: No Substance/Drug Use: never Lives independently: Yes Marital status: Current gender identity: Male Vitals/I&O/Wt Last Vital Signs Temp 98.3 F 07/10/24 16:06 Pulse 98 07/10/24 16:06 Resp 24 H 07/10/24 16:06 BP 100/70 07/10/24 16:06 Pulse Ox 93 07/10/24 16:06 O2 Del Method Nasal Cannula 07/10/24 13:30 O2 Flow Rate 2 07/10/24 13:30 07/10/24 07/10/24 07/10/24 06:59 14:59 22:59 Intake Total 13.167 / 1507.834 360 / 360 Output Total 1750 / 2150 1450 / 1450 Balance -1736.833 / -642.166 -1090 / -1090 Weight last 48 hrs Weight 164 lb 6.4 oz Weight 164 lb 6.4 oz Physical Exam 2 Narrative: GENERAL: The patient is alert and oriented times three. Not in any acute distress. HEENT: No significant pallor, icterus or lymphadenopathy.Oral cavity: There are no mucous membrane lesions. NECK: Trachea appears to be central. No masses noted. No JVD or thyromegaly appreciated. RESPIRATORY: Chest is symmetrical. No intercostals muscle retraction or any accessory muscle activation. There is no chest wall tenderness. Breath sounds are heard bilaterally with a scattered occasional coarse crackles. BREASTS: Deferred. HEART: The heart sounds are normal. No S3 or S4. No significant murmurs. No pericardial rub ABDOMEN: No vessel pulsations or distention. No tenderness. No organomegaly appreciated. Bowel sounds are normally heard. : Deferred. RECTAL: Deferred. LYMPHATIC: No lymphadenopathy noted in the neck. EXTREMITIES: No edema or cyanosis. No clubbing. MUSCULOSKELETAL: No acute joint deformities or swelling SKIN: There are no significant rashes or ecchymosis NEUROPSYCHIATRIC: The patient is alert and oriented x3. Appears to be in a good mood. No tremors or rigidity noted. Data 07/10/24 03:45 07/10/24 03:45 Other Labs: Laboratory Last Values WBC 9.96 10^3/uL (3.29-11.43) 07/10/24 03:45 RBC 4.44 10^6/uL (3.85-5.65) 07/10/24 03:45 Hgb 14.10 g/dL (11.27-16.99) 07/10/24 03:45 Hct 41.9 % (37-53) 07/10/24 03:45 MCV 94.4 fl (82-101) 07/10/24 03:45 MCH 31.8 pg (27-33) 07/10/24 03:45 MCHC 33.7 g/dL (30-55) 07/10/24 03:45 RDW 12.1 % (12.1-15.1) 07/10/24 03:45 Plt Count 290 10^3/cmm (157-399) 07/10/24 03:45 MPV 9.4 fL (7.4-10.4) 07/10/24 03:45 Neut % (Auto) 76.9 % 07/10/24 03:45 Lymph % (Auto) 11.7 % 07/10/24 03:45 [place] % (Auto) 6.7 % 07/10/24 03:45 Eos % (Auto) 3.2 % 07/10/24 03:45 Baso % (Auto) 0.7 % 07/10/24 03:45 Neut # (Auto) 7.65 10^3/uL (1.8-7.7) 07/10/24 03:45 Lymph # (Auto) 1.2 10^3/uL (0.8-4.8) 07/10/24 03:45 [place] # (Auto) 0.7 10^3/uL (0.2-0.9) 07/10/24 03:45 Eos # (Auto) 0.3 10^3/uL (0.0-0.8) 07/10/24 03:45 Baso # (Auto) 0.1 10^3/uL (0.0-0.1) 07/10/24 03:45 Nucleated RBC % (auto) 0 % 07/10/24 03:45 Nucleated RBCs # 0.0 /100WBC 07/10/24 03:45 D-Dimer 0.78 ug/mLFEU (0-0.59) H 07/06/24 11:08 Sodium 134 mmol/L (136-145) L 07/10/24 03:45 Potassium 4.1 mmol/L (3.5-5.1) 07/10/24 03:45 Chloride 96 mmol/L (98-107) L 07/10/24 03:45 Carbon Dioxide 26 mmol/L (22-29) 07/10/24 03:45 Anion Gap 16.1 (5-19) 07/10/24 03:45 BUN 16 mg/dL (8-23) 07/10/24 03:45 Creatinine 1.2 mg/dL (0.7-1.2) 07/10/24 03:45 GFR Calculation Not Reportable 07/10/24 03:45 Glucose 101 mg/dL (65-115) 07/10/24 03:45 POC Glucose 114 mg/dL (70-110) H 07/10/24 20:37 Calculated Osmolality 279 mOsm/kg (285-295) L 07/10/24 03:45 Calcium 9.0 mg/dL (8.5-10.5) 07/10/24 03:45 Magnesium 2.1 mg/dL (1.7-2.3) 07/10/24 03:45 Total Bilirubin 0.4 mg/dL (0.15-1.2) 07/10/24 03:45 AST 46 U/L (0-40) H 07/10/24 03:45 ALT 71 U/L (0-41) H 07/10/24 03:45 Alkaline Phosphatase 68 U/L (40-130) 07/10/24 03:45 Troponin T Baseline 16 ng/L (0-15) H 07/06/24 11:08 Troponin T 120 Minute 14.98 ng/L (0-15) 07/06/24 13:42 Delta Troponin T -1.02 ABS# (0-10) L 07/06/24 13:42 Troponin T Hi Sens 6Hr 16.27 ng/L (0-15) H 07/06/24 17:24 Troponin T Hi Sens 6Hr Delta 0.27 ng/L (0-12) 07/06/24 17:24 NT-Pro-B Natriuret Pep 1137 pg/mL (0-125) H 07/06/24 11:08 NT-Pro-B Natriuret Pep 1164 pg/mL (0-125) H 07/06/24 11:08 Total Protein 6.6 g/dL (6.6-8.7) 07/10/24 03:45 Albumin 3.0 g/dL (3.5-5.2) L 07/10/24 03:45 Globulin 3.6 g/dL (1.3-4.6) 07/10/24 03:45 Procalcitonin 0.11 ng/mL (0-0.5) 07/06/24 11:08 Procalcitonin Cancelled 07/06/24 11:08 Urine Color Dark yellow (Yellow) A 07/06/24 12:12 Urine Appearance Clear (CLEAR) 07/06/24 12:12 Urine pH 5.5 (5-7) 07/06/24 12:12 Ur Specific [place] 1.024 (1.005-1.030) 07/06/24 12:12 Urine Protein 1+ (Negative) A 07/06/24 12:12 Urine Glucose (UA) Negative (Normal) 07/06/24 12:12 Urine Ketones Trace (Negative) 07/06/24 12:12 Urine Blood Negative (Negative) 07/06/24 12:12 Urine Nitrate Negative (Negative) 07/06/24 12:12 Urine Bilirubin Negative (Negative) 07/06/24 12:12 Urine Urobilinogen 1.0 mg/dL (Negative) 07/06/24 12:12 Ur Leukocyte Esterase Negative (Negative) 07/06/24 12:12 Urine RBC 0-2 /hpf (0-2) 07/06/24 12:12 Urine WBC 0-5 /hpf (0-5) 07/06/24 12:12 Ur Squamous Epith Cells 0-5 /hpf (0-5) 07/06/24 12:12 Amorphous Sediment Not Reportable 07/06/24 12:12 Urine Bacteria None seen /hpf (NONE) 07/06/24 12:12 Hyaline Casts 10.73 /lpf 07/06/24 12:12 Fine Granular Casts 0-4 /lpf H 07/06/24 12:12 Nasal MRSA (PCR) Not detected (Negative) 07/06/24 14:26 Coronavirus (PCR) Negative (Negative) 07/07/24 14:38 Hepatitis A IgM Ab Non-reactive (Nonreactive) 07/09/24 13:52 Hep Bs Antigen Non-reactive (Nonreactive) 07/09/24 13:52 Hep Bs Antibody < 3.5 (11.5-1000) L 07/09/24 13:52 Hep B Core Total Ab Non-reactive (Nonreactive) 07/09/24 13:52 Hepatitis C Antibody Non-reactive (Nonreactive) 07/09/24 13:52 Influenza A (PCR) Negative (Negative) 07/07/24 14:38 Influenza Type B (PCR) Negative (Negative) 07/07/24 14:38 RSV (PCR) Negative (Negative) 07/07/24 14:38 Other data: EKG from 07/08/2024 Atrial fibrillation with ventricular response rate of 100/min. Some nonspecific T wave changes. Nonspecific IVCD. Echocardiogram from 07/07/2024 Normal left ventricular size, systolic function and wall thickness, with no regional wall motion abnormalities. Left ventricular ejection fraction is estimated at 60 %. Grade III/IV diastolic dysfunction (restrictive filling pattern), severely elevated filling pressures. Mildly thickened mitral valve. No mitral valve stenosis. Trace mitral valve regurgitation. Moderate aortic valve calcification. No aortic valve stenosis. Trace aortic valve regurgitation. Structurally normal tricuspid valve without significant stenosis or regurgitation. Pulmonary artery systolic pressure is normal. There is no pericardial effusion. Right atrial pressure is around 15 mm of mercury. A&P Assessment and plan (1) Atrial fibrillation with rapid ventricular response: Patient is a ventricular rate seems to be getting under control. Etiology of atrial fibrillation is not clear at this time. It could be part of the respiratory infection. However in view of the history of longstanding alcohol abuse, organic heart disease causing this also is a consideration. To further evaluate for underlying coronary ischemia, a Myocardial perfusion imaging would be appropriate. This was discussed with the patient in detail which is understood well and consented to proceed. (2) Elevated blood pressure reading: Currently the blood pressure is in the normal range. May continue on the current management. (3) Hyperlipidemia: May continue on the current medication. Qualifiers: Hyperlipidemia type: unspecified Qualified Code(s): E78.5 - Hyperlipidemia, unspecified (4) Pneumonia: Possible pneumonia. No organisms were identified so far. He is on empiric antibiotic. Management as per the primary. Qualifiers: Pneumonia type: due to unspecified organism Laterality: bilateral Lung location: unspecified part of lung Qualified Code(s): J18.9 - Pneumonia, unspecified organism Plan Patient will be scheduled for a Lexiscan/sestamibi/sestamibi stress test tomorrow. May continue the current medication for the time being. Based on the results of the above tests and the patient's clinical progress, further recommendations will be made. Patient has a high [id number] score. So he would benefit from long-term oral anticoagulation. After the stress test, further recommendations will be made Thank you for the opportunity to evaluate this patient and make these recommendations PDMP PDMP Reviewed: Not Reviewed Consult Attestations 2 Medical Necessity Statement: Patient requires continued hospital stay for close monitoring and further management Coding Level of Care Code 51120 Diagnoses Atrial fibrillation with rapid ventricular response I48.91 Elevated blood pressure reading R03.0 Hyperlipidemia, unspecified hyperlipidemia type E78.5 Hyperlipidemia type: unspecified Pneumonia of both lungs due to infectious organism, unspecified part of lung J18.9 Pneumonia type: due to unspecified organism Laterality: bilateral Lung location: unspecified part of lung
[2024-07-10 21:08] LABS: Glucose Point of Care 114 mg/dL (70-110)
[2024-07-10] MEDS: metoprolol tartrate 25 mg Tablet PO (22:10)
--- NOTE | 2024-07-10 22:16 | PC.NURSE ---
Contacted MD about soft blood pressure of 96/67 before giving 2100 dose of metoprolol, got orders to given 25mg instead of 50mg.
[2024-07-11] VITALS (12 sets, daily range): BP systolic 98–118; BP diastolic 72–84; PULSE 96–115; RESP 13–22; TEMP 36.4–36.7; O2SAT 90–96
[2024-07-11] MEDS: dilTIAZem 30 mg Tablet PO ×4 (02:49→20:12)
[2024-07-11 04:29] LABS: Basophils # 0.1 10^3/uL (0.0-0.1); Basophils % 0.6 %; Eosinophils # 0.4 10^3/uL (0.0-0.8); Hematocrit 41.6 % (37-53); Lymphocytes # 1.4 10^3/uL (0.8-4.8); Lymphocytes % 11.6 %; Mean Corpuscular HGB Conc 33.2 g/dL (30-55); Mean Corpuscular Hemoglobin 31.5 pg (27-33); Mean Platelet Volume 9.6 fL (7.4-10.4); Monocytes # 0.9 10^3/uL (0.2-0.9); Monocytes % 7.3 %; Neutrophils # 8.95 10^3/uL (1.8-7.7); Neutrophils % 76.8 %; Nucleated Red Blood Cells % 0 %; Platelet Count 312 10^3/cmm (157-399); Red Blood Count 4.38 10^6/uL (3.85-5.65); White Blood Count 11.65 10^3/uL (3.29-11.43)
[2024-07-11 04:51] LABS: Blood Urea Nitrogen 17 mg/dL (8-23); Calcium 8.9 mg/dL (8.5-10.5); Carbon Dioxide 27 mmol/L (22-29); Chloride 96 mmol/L (98-107); Glucose 105 mg/dL (65-115); Magnesium 2.1 mg/dL (1.7-2.3); Osmolality Calculated 280 mOsm/kg (285-295); Sodium 134 mmol/L (136-145)
[2024-07-11] MEDS: FUROsemide 10 mg/mL SDV 2mL 20 MG IVP (06:11)
[2024-07-11] MEDS: enoxaparin 80 mg/0.8 mL Syringe SUBCUT ×2 (06:11→17:56)
[2024-07-11] MEDS: metoprolol tartrate 25 mg Tablet 50 MG PO ×2 (07:34→21:41)
[2024-07-11] MEDS: pantoprazole DR 40 mg Tablet PO (07:35)
[2024-07-11] MEDS: azithromycin 250 mg Tablet 500 MG PO (07:35)
[2024-07-11] MEDS: diclofenac 75 mg DR Tablet PO ×2 (07:35→17:56)
--- NOTE | 2024-07-11 08:48 | ECG_ITS ---
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 Interpretive Statements Lung unchanged pre/post procedure; Intraprocedure shortess of breath; Symptoms resoled by discharge [email or web address]
--- NOTE | 2024-07-11 08:50 | P.PN_ITS ---
Subjective 2 Subjective: Patient is feeling okay. The telemetry shows the heart rate fluctuating. The ventricular rate is in the 80-115 . The systolic blood pressure powell s been in the 90s. But the patient is feeling okay. Medications: Medication Review Details: Current Medications Acetaminophen (Acetaminophen 325 Mg Tablet) 650 mg PO Q6H PRN PRN Reason: Mild/Mod Pain Or Temp >/= 101 Azithromycin (Azithromycin 250 Mg Tablet) 500 mg PO DAILY [facility]; Protocol Last Admin: 07/11/24 07:35 Dose: 500 mg Budesonide (Budesonide 0.5 Mg/2 Ml Neb) 0.5 mg INHALATION BID.RESPIRATORY JAN Last Admin: 07/10/24 21:47 Dose: 0.5 mg Ceftriaxone Sodium (Ceftriaxone 1,000 Mg Sdv) 1,000 mg IVP Q24H [facility]; Protocol Last Admin: 07/10/24 13:59 Dose: 1,000 mg Diclofenac Sodium (Diclofenac [address] Tablet) 75 mg PO BID JAN Last Admin: 07/11/24 07:35 Dose: 75 mg Diltiazem HCl (Diltiazem 30 Mg Tablet) 30 mg PO Q6H JAN Last Admin: 07/11/24 07:35 Dose: 30 mg Enoxaparin Sodium (Enoxaparin 80 Mg/0.8 Ml Syringe) 80 mg SUBCUT Q12H [facility] Last Admin: 07/11/24 06:11 Dose: 80 mg Furosemide (Furosemide 10 Mg/Ml Sdv 2ml) 20 mg IVP Q24H JAN Last Admin: 07/11/24 06:11 Dose: 20 mg Ipratropium [place] (Ipratropium 0.5 Mg/2.5 Ml Neb) 0.5 mg INHALATION Q6H.RESP [facility] Last Admin: 07/11/24 04:46 Dose: Not Given Levalbuterol HCl (Levalbuterol 0.63 Mg/3 Ml Neb) 0.63 mg INHALATION Q6H.RESP [facility] Last Admin: 07/11/24 04:46 Dose: Not Given Metoprolol Tartrate (Metoprolol Tartrate 25 Mg Tablet) 50 mg PO BID@0900,2100 [facility] Last Admin: 07/11/24 07:34 Dose: 50 mg Ondansetron HCl (Ondansetron 2 Mg/Ml Sdv 2 Ml) 4 mg IVP Q8H PRN PRN Reason: vomiting, or N/V if npo Pantoprazole Sodium (Pantoprazole Dr 40 Mg Tablet) 40 mg PO DAILY JAN Last Admin: 07/11/24 07:35 Dose: 40 mg Vitals/I&O/Wt Last Vital Signs Temp 97.8 F 07/11/24 07:59 Pulse 111 H 07/11/24 07:59 Resp 22 H 07/11/24 07:59 BP 118/79 07/11/24 07:59 Pulse Ox 91 07/11/24 04:00 O2 Del Method Room Air 07/11/24 07:59 O2 Flow Rate 2 07/10/24 21:49 07/10/24 07/11/24 07/11/24 22:59 06:59 14:59 Intake Total 635.667 / 995.667 100 / 1095.667 Output Total 0 / 1450 1050 / 2500 Balance 635.667 / -454.333 -950 / -1404.333 Weight last 48 hrs Weight 164 lb 6.4 oz Weight 164 lb 6.4 oz Physical Exam 2 Narrative: GENERAL: The patient is alert and oriented times three. Not in any acute distress. HEENT: No significant pallor, icterus or lymphadenopathy.Oral cavity: There are no mucous membrane lesions. NECK: Trachea appears to be central. No masses noted. No JVD or thyromegaly appreciated. RESPIRATORY: Chest is symmetrical. No intercostals muscle retraction or any accessory muscle activation. There is no chest wall tenderness. Breath sounds are heard bilaterally. No rales or rhonchi heard. No evidence of any consolidation. BREASTS: Deferred. HEART: The heart sounds are normal. No S3 or S4. No significant murmurs. No pericardial rub ABDOMEN: No vessel pulsations or distention. No tenderness. No organomegaly appreciated. Bowel sounds are normally heard. : Deferred. RECTAL: Deferred. LYMPHATIC: No lymphadenopathy noted in the neck. EXTREMITIES: No edema or cyanosis. No clubbing. MUSCULOSKELETAL: No acute joint deformities or swelling SKIN: There are no significant rashes or ecchymosis NEUROPSYCHIATRIC: The patient is alert and oriented x3. Appears to be in a good mood. No tremors or rigidity noted. Data 07/12/24 04:02 07/12/24 04:02 A&P Assessment and plan (1) Atrial fibrillation with rapid ventricular response: Etiology is not clear. We may go ahead and do schedule for the Myocardial perfusion imaging in the morning. If he has no significant ischemia, we may consider electrical cardioversion (2) Elevated blood pressure reading: The blood pressure has been in the low normal side at times drop into the 80s and 90s. (3) Hyperlipidemia: May continue on the current medication. Qualifiers: Hyperlipidemia type: unspecified Qualified Code(s): E78.5 - Hyperlipidemia, unspecified (4) Pneumonia: Possible pneumonia. No organisms were identified so far. He is on empiric antibiotic. Management as per the primary. Qualifiers: Laterality: bilateral Lung location: unspecified part of lung P neumonia type: due to unspecified organism Qualified Code(s): J18.9 - Pneumonia, unspecified organism Plan Patient will be scheduled for a Lexiscan/sestamibi/sestamibi stress test tomorrow. May continue the current medication for the time being. Based on the results of the above tests and the patient's clinical progress, further recommendations will be made. Patient has a high [id number] score. So he would benefit from long-term oral anticoagulation. After the stress test, further recommendations will be made May consider electrical cardioversion, if there is no evidence of ischemia. PDMP PDMP Reviewed: Not Reviewed Attestations 2 Medical Necessity Statement*: Patient requires continued hospital stay for close monitoring and further management Coding Level of Care Code Acute Code for Chg Fwd Diagnoses Atrial fibrillation with rapid ventricular response I48.91 Elevated blood pressure reading R03.0 Hyperlipidemia, unspecified hyperlipidemia type E78.5 Hyperlipidemia type: unspecified Pneumonia of both lungs due to infectious organism, unspecified part of lung J18.9 Laterality: bilateral Lung location: unspecified part of lung Pneumonia type: due to unspecified organism
[2024-07-11] MEDS: ipratropium 0.5 mg/2.5 mL Neb INHALATION ×3 (09:00→21:05)
[2024-07-11] MEDS: levalbuterol 0.63 mg/3 mL Neb INHALATION ×3 (09:00→21:05)
[2024-07-11] MEDS: budesonide 0.5 mg/2 mL Neb INHALATION ×2 (09:00→21:05)
--- NOTE | 2024-07-11 09:33 | PC.SOCIAL ---
IMM Update pg 2 of IMM Updated and reviewed w/ patient. Copy provided and copy dated, initialed and placed in chart.
--- NOTE | 2024-07-11 12:10 | P.PN_ITS ---
Subjective 2 Subjective: Seen this morning. Patient remains in A-fib. Heart rate 1 10-1 20. Plan for stress test going forward. Vitals/I&O/Wt Last Vital Signs Temp 97.8 F 07/11/24 07:59 Pulse 96 07/11/24 09:00 Resp 16 07/11/24 09:00 BP 118/79 07/11/24 07:59 Pulse Ox 93 07/11/24 09:00 O2 Del Method Room Air 07/11/24 09:00 O2 Flow Rate 2 07/10/24 21:49 07/10/24 07/11/24 07/11/24 22:59 06:59 14:59 Intake Total 635.667 / 995.667 100 / 1095.667 Output Total 0 / 1450 1050 / 2500 500 / 500 Balance 635.667 / -454.333 -950 / -1404.333 -500 / -500 Weight last 48 hrs Weight 74.571 kg Weight 74.571 kg Physical Exam 2 Narrative: GEN: Awake, alert and oriented, no acute distress, now on room air. CVS: S1S2 irregularly irregular, no tachycardia RS: Clear to auscultation bilaterally no wheezes no rhonchi no crackles. 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 SIRS: Tachycardic, Febrile, Leukocytosis Source: Pneumonia End organ damage: STANTON, A-fib Check lactic acid with reflex Patient did not receive full 30 mL/kg BW given concerns for A-fib with RVR, congestive heart failure NS at 50 cc/h for 1 bag. Watch for fluid overload. Monitor blood pressures. Keep mean artery pressure 65 mmHg. Check Blood culture, MRSA swab, procalcitonin, sputum culture. (2) Pneumonia: Chest x-ray consistent with bilateral pneumonia. Check sputum culture as above. Treatment for community-acquired pneumonia with IV ceftriaxone and was azithromycin. If MRSA swab positive will add coverage. Qualifiers: Laterality: bilateral Lung location: unspecified part of lung P neumonia type: due to unspecified organism Qualified Code(s): J18.9 - Pneumonia, unspecified organism (3) Atrial fibrillation with rapid ventricular response: New diagnosis. Currently on Cardizem drip. Wean keeping heart rate less than 100 bpm. Start on oral Cardizem 30 mg Q6 hourly. Check echocardiogram. Discussed anticoagulation for stroke prevention in detail with the patient. He is agreeable. Start on full dose Lovenox 1 mg/kg body weight Q12 hourly. Will plan to transition over to Eliquis on discharge. (4) Hypertension: Goal blood pressure less than 140/90 mmHg. Will continue to monitor. Qualifiers: Hypertension type: unspecified Qualified Code(s): I10 - Essential (primary) hypertension (5) Flu-like symptoms: Recent flulike symptoms. For now start on Pulmicort twice daily, ipratropium, Xopenex every 6 hourly. Oxygen supplementation keeping saturation over 88%. Plan Full code Clear liquid diet for now. If tolerating well with this transition to cardiac diet in morning. Full dose Lovenox will be sufficient for DVT prophylaxis Protonix OPD prophylaxis July 07, 2024 No new complaints today. Off Cardizem infusion. Currently on 30 mg p.o. every 6 hours. Heart rate ranging 90-100. Increase dose of Cardizem to 60 mg every 8 hours and closely monitor heart rate and blood pressure response. Continue Lovenox 1 mg/kg IV every 12 hours for anticoagulation with aim to transition to DOACs closer to discharge. Continue IV ceftriaxone and azithromycin for pneumonia. Kidney function is improving today with creatinine down to 1.4-1.0. Troponin series without significant elevation. Discontinue IV fluids. Will follow-up pending echocardiogram July 08, 2024. Leukocytosis is improving. Currently on 1.5 L/min supplemental O2. Heart rate still hovering around 100-1 10. Will change Cardizem to metoprolol 25 mg p.o. twice daily today and assess for heart rate response. Obtain twelve-lead EKG. On telemetry appearing to be sinus tachycardia today. Echocardiogram showing LVEF of 60%, grade 3 diastolic dysfunction. Severely elevated filling pressures. Start Lasix 20 mg IV every 24 hours. Evaluate kidney function and urine output closely. Complaining of pain around the right knee. Patient had known history of inflammatory arthritis for which she takes diclofenac. Will resume diclofenac 75 mg p.o. twice daily and closely monitor kidney function. Noted to have very minimal swelling just above the knee joint medially. No signs of septic arthritis. Favor synovitis to be the cause. Will evaluate lower extremity ultrasound to rule out DVT. 07/09/2024 Patient still in uncontrolled atrial fibrillation however asymptomatic at this time. Increase metoprolol to 50 twice daily. Continue Cardizem drip at this time. Once heart rate better controlled we will switch to oral. Continue diuresis with Lasix 20 IV daily. ? Lower extremity Doppler ruled out DVT. Continue therapeutic Lovenox at this time we will aim to switch to Eliquis at discharge. Keep potassium above 4 magnesium above 2. Liver enzymes slightly elevated. Will check hepatitis profile. Will check CT abdomen. 07/10/2024 Patient remains in persistent atrial fibrillation with RVR. He has been on 5 of Cardizem drip last 24 to 36 hours. Will switch to Cardizem 30 every 6 and continue metoprolol 50 twice daily. This is new onset A-fib. Discussed with cardiology regarding possible SELINA cardioversion. Consult Dr. Weldon. Await recommendations. Continue therapeutic Lovenox at this time. Mild apparent megaly noted on CT abdomen. Distended bladder with enlarged prostate compatible with bladder outlet obstruction. Patient will need to follow-up with urology at discharge. 07/11/2024 The patient cardiology recommendations. Continue Cardizem 30 every 6 and metoprolol 50 twice daily. Plan for stress test in AM. N.p.o. at midnight tonight. Echo completed. Continue therapeutic Lovenox. Patient will need anticoagulation at discharge. PDMP PDMP Reviewed: Not Reviewed Attestations 2 Medical Necessity Statement*: Remains in persistent A-fib Diagnoses Sepsis A41.9 Pneumonia of both lungs due to infectious organism, unspecified part of lung J18.9 Laterality: bilateral Lung location: unspecified part of lung Pneumonia type: due to unspecified organism Atrial fibrillation with rapid ventricular response I48.91 Hypertension, unspecified type I10 Hypertension type: unspecified Flu-like symptoms R68.89
[2024-07-11] MEDS: cefTRIAXone 1,000 mg SDV 1000 MG IVP (13:36)
[2024-07-12] VITALS (15 sets, daily range): BP systolic 85–173; BP diastolic 57–81; PULSE 77–146; RESP 14–24; TEMP 36.3–36.7; O2SAT 90–95
[2024-07-12 04:36] LABS: Basophils # 0.1 10^3/uL (0.0-0.1); Basophils % 0.7 %; Eosinophils # 0.4 10^3/uL (0.0-0.8); Eosinophils % 3.3 %; Hematocrit 41.5 % (37-53); Lymphocytes # 1.2 10^3/uL (0.8-4.8); Lymphocytes % 9.7 %; Mean Corpuscular Volume 94.1 fl (82-101); Mean Platelet Volume 9.5 fL (7.4-10.4); Monocytes # 0.8 10^3/uL (0.2-0.9); Monocytes % 6.5 %; Neutrophils # 9.58 10^3/uL (1.8-7.7); Neutrophils % 79.1 %; Nucleated Red Blood Cells % 0 %; Platelet Count 285 10^3/cmm (157-399); Red Blood Count 4.41 10^6/uL (3.85-5.65); Red Cell Distribution Width 12.1 % (12.1-15.1); White Blood Count 12.12 10^3/uL (3.29-11.43)
[2024-07-12 05:02] LABS: Anion Gap 15.3 (5-19); Blood Urea Nitrogen 19 mg/dL (8-23); Calcium 8.8 mg/dL (8.5-10.5); Carbon Dioxide 27 mmol/L (22-29); Chloride 95 mmol/L (98-107); Glucose 105 mg/dL (65-115); Magnesium 2.1 mg/dL (1.7-2.3); Osmolality Calculated 279 mOsm/kg (285-295); Potassium 4.3 mmol/L (3.5-5.1); Sodium 133 mmol/L (136-145)
[2024-07-12] MEDS: FUROsemide 10 mg/mL SDV 2mL 20 MG IVP (06:05)
[2024-07-12] MEDS: enoxaparin 80 mg/0.8 mL Syringe SUBCUT ×2 (06:06→17:47)
--- NOTE | 2024-07-12 06:30 | P.PN_ITS ---
Subjective 2 Subjective: Patient had the Myocardial perfusion imaging today. Found to have no evidence of ischemia. Features were consistent with nonischemic cardiomyopathy. Medications: Medication Review Details: Current Medications Acetaminophen (Acetaminophen 325 Mg Tablet) 650 mg PO Q6H PRN PRN Reason: Mild/Mod Pain Or Temp >/= 101 Aminophylline (Aminophylline 25 Mg/Ml Sdv 20 Ml) 25 mg IVP Q2M PRN PRN Reason: see dose instructions Stop: 07/13/24 05:55 Azithromycin (Azithromycin 250 Mg Tablet) 500 mg PO DAILY [facility]; Protocol Last Admin: 07/11/24 07:35 Dose: 500 mg Budesonide (Budesonide 0.5 Mg/2 Ml Neb) 0.5 mg INHALATION BID.RESPIRATORY [facility] Last Admin: 07/11/24 21:05 Dose: 0.5 mg Ceftriaxone Sodium (Ceftriaxone 1,000 Mg Sdv) 1,000 mg IVP Q24H [facility]; Protocol Last Admin: 07/11/24 13:36 Dose: 1,000 mg Diclofenac Sodium (Diclofenac [address] Tablet) 75 mg PO BID JAN Last Admin: 07/11/24 17:56 Dose: 75 mg Diltiazem HCl (Diltiazem 30 Mg Tablet) 30 mg PO Q6H [facility] Last Admin: 07/12/24 03:01 Dose: Not Given Enoxaparin Sodium (Enoxaparin 80 Mg/0.8 Ml Syringe) 80 mg SUBCUT Q12H [facility] Last Admin: 07/12/24 06:06 Dose: 80 mg Furosemide (Furosemide 10 Mg/Ml Sdv 2ml) 20 mg IVP Q24H JAN Last Admin: 07/12/24 06:05 Dose: 20 mg Ipratropium [place] (Ipratropium 0.5 Mg/2.5 Ml Neb) 0.5 mg INHALATION Q6H.RESP [facility] Last Admin: 07/12/24 02:41 Dose: Not Given Levalbuterol HCl (Levalbuterol 0.63 Mg/3 Ml Neb) 0.63 mg INHALATION Q6H.RESP [facility] Last Admin: 07/12/24 02:41 Dose: Not Given Metoprolol Tartrate (Metoprolol Tartrate 25 Mg Tablet) 50 mg PO BID@0900,2100 [facility] Last Admin: 07/11/24 21:41 Dose: 50 mg Nitroglycerin (Nitroglycerin 0.4 Mg Sublingual Tablet) 0.4 mg SUBLINGUAL Q5M PRN PRN Reason: CHEST PAIN Stop: 07/13/24 05:55 Ondansetron HCl (Ondansetron 2 Mg/Ml Sdv 2 Ml) 4 mg IVP Q8H PRN PRN Reason: vomiting, or N/V if npo Ondansetron HCl (Ondansetron 2 Mg/Ml Sdv 2 Ml) 4 mg IVP Q2M PRN PRN Reason: NAUSEA Pantoprazole Sodium (Pantoprazole Dr 40 Mg Tablet) 40 mg PO DAILY JAN Last Admin: 07/11/24 07:35 Dose: 40 mg Regadenoson (Regadenoson 0.4 Mg/5 Ml Syringe) 0.4 mg IVP ONCE PRN PRN Reason: Lexiscan Stress Test Vitals/I&O/Wt Last Vital Signs Temp 97.6 F 07/12/24 04:00 Pulse 101 H 07/12/24 05:24 Resp 14 07/12/24 04:00 BP 95/79 07/12/24 04:00 Pulse Ox 92 07/12/24 04:00 O2 Del Method Nasal Cannula 07/12/24 04:00 O2 Flow Rate 2 07/12/24 02:40 07/11/24 07/11/24 07/12/24 14:59 22:59 06:59 Intake Total 420 / 420 360 / 780 150 / 930 Output Total 500 / 500 875 / 1375 0 / 1375 Balance -80 / -80 -515 / -595 150 / -445 Weight last 48 hrs Weight 164 lb 6.4 oz Weight 164 lb 6.4 oz Physical Exam 2 Narrative: GENERAL: The patient is alert and oriented times three. Not in any acute distress. HEENT: No significant pallor, icterus or lymphadenopathy.Oral cavity: There are no mucous membrane lesions. NECK: Trachea appears to be central. No masses noted. No JVD or thyromegaly appreciated. RESPIRATORY: Chest is symmetrical. No intercostals muscle retraction or any accessory muscle activation. There is no chest wall tenderness. Breath sounds are heard bilaterally. No rales or rhonchi heard. No evidence of any consolidation. BREASTS: Deferred. HEART: The heart sounds are normal. No S3 or S4. No significant murmurs. No pericardial rub ABDOMEN: No vessel pulsations or distention. No tenderness. No organomegaly appreciated. Bowel sounds are normally heard. : Deferred. RECTAL: Deferred. LYMPHATIC: No lymphadenopathy noted in the neck. EXTREMITIES: No edema or cyanosis. No clubbing. MUSCULOSKELETAL: No acute joint deformities or swelling SKIN: There are no significant rashes or ecchymosis NEUROPSYCHIATRIC: The patient is alert and oriented x3. Appears to be in a good mood. No tremors or rigidity noted. Data 07/12/24 04:02 07/12/24 04:02 Micro: Microbiology 07/06/24 20:16 Blood Culture - Final Blood NO GROWTH AFTER 5 DAYS 07/06/24 20:14 Blood Culture - Final Blood NO GROWTH AFTER 5 DAYS A&P Assessment and plan (1) Atrial fibrillation with rapid ventricular response: Since there is no evidence of ischemia, we may consider electrical cardioversion tomorrow. I may go ahead and start the patient on amiodarone 400 mg p.o. twice daily. Other medications may be continued. (2) Elevated blood pressure reading: The blood pressure has been fairly stable. May continue the current medication for the time being. The blood pressure still seems to be in the 90s and low 100s (3) Hyperlipidemia: May continue on the current medication. Qualifiers: Hyperlipidemia type: unspecified Qualified Code(s): E78.5 - Hyperlipidemia, unspecified (4) Pneumonia: Possible pneumonia. Currently remaining afebrile. Management as per the primary Qualifiers: Laterality: bilateral Lung location: unspecified part of lung P neumonia type: due to unspecified organism Qualified Code(s): J18.9 - Pneumonia, unspecified organism Plan Schedule the patient for SELINA cardioversion tomorrow Amiodarone as mentioned above Continue the IV anticoagulation Based on the clinical progress, further recommendations will be made. PDMP PDMP Reviewed: Not Reviewed Attestations 2 Medical Necessity Statement*: Patient requires continued hospital stay for close monitoring and further management Coding Level of Care Code 88882 Diagnoses Atrial fibrillation with rapid ventricular response I48.91 Elevated blood pressure reading R03.0 Hyperlipidemia, unspecified hyperlipidemia type E78.5 Hyperlipidemia type: unspecified Pneumonia of both lungs due to infectious organism, unspecified part of lung J18.9 Laterality: bilateral Lung location: unspecified part of lung Pneumonia type: due to unspecified organism
[2024-07-12] MEDS: regadenoson 0.4 Mg/5 ml Syringe IVP (07:00)
[2024-07-12] MEDS: budesonide 0.5 mg/2 mL Neb INHALATION (08:35)
[2024-07-12] MEDS: ipratropium 0.5 mg/2.5 mL Neb INHALATION ×2 (08:35→13:55)
[2024-07-12] MEDS: levalbuterol 0.63 mg/3 mL Neb INHALATION ×2 (08:35→13:55)
--- NOTE | 2024-07-12 08:48 | NMCV_ITS ---
NM esthela perf SPECT r/s* [id number] Ahsan Beltrán Age: 74 Gender: M : 1950 Exam Date: 07/12/2024 06:26 Ordering Phys: Campos Weldon MD ([email or web address]) Technologist: LORNE Camar[place] Exam Location: [facility] Indications: cp STRESS TEST [facility] IMAGE PROTOCOL Rest/Stress 1 Lexiscan Day Radiopharmaceutical Dose (mCi) Administration Site Administered by Rest: Tc-99m 10.8 IV Evangelina Cummins, [employer] Sestamibi Stress:Tc-99m 33 IV Evangelina Francogle, [employer] Sestamibi Rest: 12-Jul-2024 60 Discovery 630 Stress: 12-Jul-2024 30 Discovery 630 0.4mg Lexiscan. Images obtained in supine and prone position. SPECT RESULTS Technical Quality: Good Raw Data Analysis: Normal Image Corrections: No attenuation or motion correction applied Summed Stress Score: 1 Summed Rest Score: 6 Summed Difference Score: 0 PERFUSION FINDINGS Small area of slightly decreased tracer uptake was noted in the apical lateral region with no significant reversibility. FUNCTIONAL RESULTS (calculated via Gated SPECT) Stress Image LV EF (%): 39 Stress EDV (mL):80 TID: 1.06 Stress ESV (mL):49 FUNCTIONAL FINDINGS: Segmental wall motion analysis revealed diffuse hypokinesia of the left ventricle IMPRESSIONS 1. Myocardial perfusion imaging revealing a small area of slightly decreased persistent tracer uptake in the apical lateral region, suggestive Myocard scarring versus attenuation artifact. 2. Diminished LV ejection fraction of 39%. 3. LV wall motion analysis revealing diffuse hypokinesia of the left ventricle. 4. Mildly dilated LV cavity with end-systolic volume of 49 mL. The above features may have his some form of nonischemic cardiomyopathy Dr Campos Weldon MD [facility] (Electronically Signed) Final Date: 12 July 2024 10:00 S
[2024-07-12] MEDS: metoprolol tartrate 25 mg Tablet 50 MG PO ×2 (09:27→20:48)
[2024-07-12] MEDS: azithromycin 250 mg Tablet 500 MG PO (09:27)
[2024-07-12] MEDS: pantoprazole DR 40 mg Tablet PO (09:27)
[2024-07-12] MEDS: diclofenac 75 mg DR Tablet PO ×2 (09:28→17:46)
[2024-07-12] MEDS: dilTIAZem 30 mg Tablet PO ×2 (09:28→15:44)
[2024-07-12] MEDS: amiodarone 200 mg Tablet 400 MG PO ×2 (09:52→17:46)
--- NOTE | 2024-07-12 10:58 | P.PN_ITS ---
Subjective 2 Subjective: Patient underwent stress test this morning. Results are pending at this time. Creatinine has gone up to 1.4. Oral amiodarone was started by cardiology. He remains tachycardic and in A-fib. Vitals/I&O/Wt Last Vital Signs Temp 97.4 F L 07/12/24 08:00 Pulse 96 07/12/24 08:35 Resp 18 07/12/24 08:35 BP 103/81 07/12/24 08:00 Pulse Ox 91 07/12/24 08:35 O2 Del Method Room Air 07/12/24 08:35 O2 Flow Rate 2 07/12/24 02:40 07/11/24 07/12/24 07/12/24 22:59 06:59 14:59 Intake Total 360 / 780 150 / 930 120 / 120 Output Total 875 / 1375 0 / 1375 Balance -515 / -595 150 / -445 120 / 120 Weight last 48 hrs Weight 74.571 kg Weight 74.571 kg Physical Exam 2 Narrative: GEN: Awake, alert and oriented, no acute distress, now on room air. CVS: S1S2 irregularly irregular, tachycardic. RS: Clear to auscultation bilaterally no wheezes no rhonchi no crackles. 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 SIRS: Tachycardic, Febrile, Leukocytosis Source: Pneumonia End organ damage: STANTON, A-fib Check lactic acid with reflex Patient did not receive full 30 mL/kg BW given concerns for A-fib with RVR, congestive heart failure NS at 50 cc/h for 1 bag. Watch for fluid overload. Monitor blood pressures. Keep mean artery pressure 65 mmHg. Check Blood culture, MRSA swab, procalcitonin, sputum culture. (2) Pneumonia: Chest x-ray consistent with bilateral pneumonia. Check sputum culture as above. Treatment for community-acquired pneumonia with IV ceftriaxone and was azithromycin. If MRSA swab positive will add coverage. Qualifiers: Laterality: bilateral Lung location: unspecified part of lung P neumonia type: due to unspecified organism Qualified Code(s): J18.9 - Pneumonia, unspecified organism (3) Atrial fibrillation with rapid ventricular response: New diagnosis. Currently on Cardizem drip. Wean keeping heart rate less than 100 bpm. Start on oral Cardizem 30 mg Q6 hourly. Check echocardiogram. Discussed anticoagulation for stroke prevention in detail with the patient. He is agreeable. Start on full dose Lovenox 1 mg/kg body weight Q12 hourly. Will plan to transition over to Eliquis on discharge. (4) Hypertension: Goal blood pressure less than 140/90 mmHg. Will continue to monitor. Qualifiers: Hypertension type: unspecified Qualified Code(s): I10 - Essential (primary) hypertension (5) Flu-like symptoms: Recent flulike symptoms. For now start on Pulmicort twice daily, ipratropium, Xopenex every 6 hourly. Oxygen supplementation keeping saturation over 88%. Plan Full code Clear liquid diet for now. If tolerating well with this transition to cardiac diet in morning. Full dose Lovenox will be sufficient for DVT prophylaxis Protonix OPD prophylaxis July 07, 2024 No new complaints today. Off Cardizem infusion. Currently on 30 mg p.o. every 6 hours. Heart rate ranging 90-100. Increase dose of Cardizem to 60 mg every 8 hours and closely monitor heart rate and blood pressure response. Continue Lovenox 1 mg/kg IV every 12 hours for anticoagulation with aim to transition to DOACs closer to discharge. Continue IV ceftriaxone and azithromycin for pneumonia. Kidney function is improving today with creatinine down to 1.4-1.0. Troponin series without significant elevation. Discontinue IV fluids. Will follow-up pending echocardiogram July 08, 2024. Leukocytosis is improving. Currently on 1.5 L/min supplemental O2. Heart rate still hovering around 100-1 10. Will change Cardizem to metoprolol 25 mg p.o. twice daily today and assess for heart rate response. Obtain twelve-lead EKG. On telemetry appearing to be sinus tachycardia today. Echocardiogram showing LVEF of 60%, grade 3 diastolic dysfunction. Severely elevated filling pressures. Start Lasix 20 mg IV every 24 hours. Evaluate kidney function and urine output closely. Complaining of pain around the right knee. Patient had known history of inflammatory arthritis for which she takes diclofenac. Will resume diclofenac 75 mg p.o. twice daily and closely monitor kidney function. Noted to have very minimal swelling just above the knee joint medially. No signs of septic arthritis. Favor synovitis to be the cause. Will evaluate lower extremity ultrasound to rule out DVT. 07/09/2024 Patient still in uncontrolled atrial fibrillation however asymptomatic at this time. Increase metoprolol to 50 twice daily. Continue Cardizem drip at this time. Once heart rate better controlled we will switch to oral. Continue diuresis with Lasix 20 IV daily. ? Lower extremity Doppler ruled out DVT. Continue therapeutic Lovenox at this time we will aim to switch to Eliquis at discharge. Keep potassium above 4 magnesium above 2. Liver enzymes slightly elevated. Will check hepatitis profile. Will check CT abdomen. 07/10/2024 Patient remains in persistent atrial fibrillation with RVR. He has been on 5 of Cardizem drip last 24 to 36 hours. Will switch to Cardizem 30 every 6 and continue metoprolol 50 twice daily. This is new onset A-fib. Discussed with cardiology regarding possible SELINA cardioversion. Consult Dr. Weldon. Await recommendations. Continue therapeutic Lovenox at this time. Mild apparent megaly noted on CT abdomen. Distended bladder with enlarged prostate compatible with bladder outlet obstruction. Patient will need to follow-up with urology at discharge. 07/11/2024 The patient cardiology recommendations. Continue Cardizem 30 every 6 and metoprolol 50 twice daily. Plan for stress test in AM. N.p.o. at midnight tonight. Echo completed. Continue therapeutic Lovenox. Patient will need anticoagulation at discharge. 07/12/2024 Appreciate cardiology recommendations. Continue Cardizem 30 every 6, metoprolol tartrate 50 twice daily. Amio 400 twice daily added. Stress test results are pending at this time. Patient has developed an STANTON. Creatinine 1.4 today. I will stop 20 of oral Lasix that was being given to him during hospitalization. I am placing him normal saline 75 cc/h. He may have been over diuresed. Continue Lovenox 80 twice daily. Will need to transition to Eliquis at discharge Requires continued hospitalization secondary to A-fib with RVR. Check BMP in AM. PDMP PDMP Reviewed: Not Reviewed Attestations 2 Medical Necessity Statement*: Remains in A-fib with RVR. Diagnoses Sepsis A41.9 Pneumonia of both lungs due to infectious organism, unspecified part of lung J18.9 Laterality: bilateral Lung location: unspecified part of lung Pneumonia type: due to unspecified organism Atrial fibrillation with rapid ventricular response I48.91 Hypertension, unspecified type I10 Hypertension type: unspecified Flu-like symptoms R68.89
[2024-07-12] MEDS: sodium chloride 0.9% 1,000 ML 100 ML IV ×2 (11:40→21:50)
[2024-07-12] MEDS: cefTRIAXone 1,000 mg SDV 1000 MG IVP (15:44)
--- NOTE | 2024-07-12 20:03 | PC.NURSE ---
Contacted MD about soft BP of 99/66 and about the upcoming doses of cardizem and metoprolol, MD gave orders to hold cardizem dose
[2024-07-13] VITALS (35 sets, daily range): BP systolic 62–114; BP diastolic 47–85; PULSE 35–102; RESP 16–20; TEMP 36.5–36.8; O2SAT 90–100
--- NOTE | 2024-07-13 02:55 | PC.NURSE ---
contacted about soft blood pressure reading of 103/73 with an upcoming dose of cardizem 30mg, MD gave orders to hold this dose of cardizem
[2024-07-13 03:03] LABS: Basophils # 0.1 10^3/uL (0.0-0.1); Basophils % 0.5 %; Eosinophils # 0.4 10^3/uL (0.0-0.8); Eosinophils % 3.3 %; Hematocrit 38.5 % (37-53); Lymphocytes # 1.5 10^3/uL (0.8-4.8); Lymphocytes % 11.5 %; Mean Corpuscular HGB Conc 33.2 g/dL (30-55); Mean Corpuscular Hemoglobin 31.5 pg (27-33); Mean Corpuscular Volume 94.8 fl (82-101); Mean Platelet Volume 9.5 fL (7.4-10.4); Monocytes # 0.8 10^3/uL (0.2-0.9); Monocytes % 6.2 %; Neutrophils # 10.06 10^3/uL (1.8-7.7); Neutrophils % 77.9 %; Nucleated Red Blood Cells % 0 %; Platelet Count 274 10^3/cmm (157-399); Red Blood Count 4.06 10^6/uL (3.85-5.65); Red Cell Distribution Width 12.3 % (12.1-15.1); White Blood Count 12.92 10^3/uL (3.29-11.43)
[2024-07-13 03:25] LABS: Alanine Aminotransferase 63 U/L (0-41); Alkaline Phosphatase 63 U/L (40-130); Anion Gap 15.1 (5-19); Aspartate Amino Transferase 34 U/L (0-40); Blood Urea Nitrogen 17 mg/dL (8-23); Calcium 8.2 mg/dL (8.5-10.5); Carbon Dioxide 24 mmol/L (22-29); Chloride 101 mmol/L (98-107); Glucose 102 mg/dL (65-115); Magnesium 1.9 mg/dL (1.7-2.3); Osmolality Calculated 284 mOsm/kg (285-295); Potassium 4.1 mmol/L (3.5-5.1); Sodium 136 mmol/L (136-145); Total Bilirubin 0.3 mg/dL (0.15-1.2)
[2024-07-13] MEDS: enoxaparin 80 mg/0.8 mL Syringe SUBCUT ×2 (06:12→18:05)
--- NOTE | 2024-07-13 08:17 | PM.PN ---
Subjective Subjective: Patient continues to be in atrial fibrillation with rapid ventricular rate. Blood pressure is in the 90s and low 100s. No new symptoms. Medications: Medication Review Details: Current Medications Acetaminophen (Acetaminophen 325 Mg Tablet) 650 mg PO Q6H PRN PRN Reason: Mild/Mod Pain Or Temp >/= 101 Amiodarone HCl (Amiodarone 200 Mg Tablet) 400 mg PO BID [facility] Last Admin: 07/12/24 17:46 Dose: 400 mg Azithromycin (Azithromycin 250 Mg Tablet) 500 mg PO DAILY [facility]; Protocol Last Admin: 07/12/24 09:27 Dose: 500 mg Budesonide (Budesonide 0.5 Mg/2 Ml Neb) 0.5 mg INHALATION BID.RESPIRATORY JAN Last Admin: 07/13/24 08:16 Dose: Not Given Ceftriaxone Sodium (Ceftriaxone 1,000 Mg Sdv) 1,000 mg IVP Q24H [facility]; Protocol Last Admin: 07/12/24 15:44 Dose: 1,000 mg Diclofenac Sodium (Diclofenac [address] Tablet) 75 mg PO BID JAN Last Admin: 07/12/24 17:46 Dose: 75 mg Diltiazem HCl (Diltiazem 30 Mg Tablet) 30 mg PO Q6H JAN Last Admin: 07/13/24 02:55 Dose: Not Given Enoxaparin Sodium (Enoxaparin 80 Mg/0.8 Ml Syringe) 80 mg SUBCUT Q12H [facility] Last Admin: 07/13/24 06:12 Dose: 80 mg Sodium Chloride (Sodium Chloride 0.9%) 1,000 mls @ 100 mls/hr IV .Q10H JAN Last Admin: 07/12/24 21:50 Dose: 100 mls/hr Ipratropium [place] (Ipratropium 0.5 Mg/2.5 Ml Neb) 0.5 mg INHALATION Q6H.RESP [facility] Last Admin: 07/13/24 08:16 Dose: Not Given Levalbuterol HCl (Levalbuterol 0.63 Mg/3 Ml Neb) 0.63 mg INHALATION Q6H.RESP [facility] Last Admin: 07/13/24 08:16 Dose: Not Given Metoprolol Tartrate (Metoprolol Tartrate 25 Mg Tablet) 50 mg PO BID@0900,2100 [facility] Last Admin: 07/12/24 20:48 Dose: 50 mg Ondansetron HCl (Ondansetron 2 Mg/Ml Sdv 2 Ml) 4 mg IVP Q8H PRN PRN Reason: vomiting, or N/V if npo Ondansetron HCl (Ondansetron 2 Mg/Ml Sdv 2 Ml) 4 mg IVP Q2M PRN PRN Reason: NAUSEA Pantoprazole Sodium (Pantoprazole Dr 40 Mg Tablet) 40 mg PO DAILY JAN Last Admin: 07/12/24 09:27 Dose: 40 mg Vitals/I&O/Wt Last Vital Signs Temp 97.7 F 07/13/24 07:52 Pulse 102 H 07/13/24 07:52 Resp 18 07/13/24 07:52 BP 103/74 07/13/24 07:52 Pulse Ox 94 07/13/24 07:52 O2 Del Method Room Air 07/13/24 07:52 O2 Flow Rate 2 07/12/24 02:40 07/12/24 07/13/24 07/13/24 22:59 06:59 14:59 Intake Total 1240 / 1600 Output Total 1675 / 1675 775 / 2450 300 / 300 Balance -435 / -75 -775 / -850 -300 / -300 Weight last 48 hrs Weight 161 lb 1.6 oz Weight 164 lb 6.4 oz Physical Exam Narrative: GENERAL: The patient is alert and oriented times three. Not in any acute distress. HEENT: No significant pallor, icterus or lymphadenopathy.Oral cavity: There are no mucous membrane lesions. NECK: Trachea appears to be central. No masses noted. No JVD or thyromegaly appreciated. RESPIRATORY: Chest is symmetrical. No intercostals muscle retraction or any accessory muscle activation. There is no chest wall tenderness. Breath sounds are heard bilaterally. No rales or rhonchi heard. No evidence of any consolidation. BREASTS: Deferred. HEART: The heart sounds are normal. No S3 or S4. No significant murmurs. No pericardial rub ABDOMEN: No vessel pulsations or distention. No tenderness. No organomegaly appreciated. Bowel sounds are normally heard. : Deferred. RECTAL: Deferred. LYMPHATIC: No lymphadenopathy noted in the neck. EXTREMITIES: No edema or cyanosis. No clubbing. MUSCULOSKELETAL: No acute joint deformities or swelling SKIN: There are no significant rashes or ecchymosis NEUROPSYCHIATRIC: The patient is alert and oriented x3. Appears to be in a good mood. No tremors or rigidity noted. Data 07/13/24 02:48 07/13/24 02:48 Other Labs: Laboratory Last Values WBC 12.92 10^3/uL (3.29-11.43) H 07/13/24 02:48 RBC 4.06 10^6/uL (3.85-5.65) 07/13/24 02:48 Hgb 12.80 g/dL (11.27-16.99) 07/13/24 02:48 Hct 38.5 % (37-53) 07/13/24 02:48 MCV 94.8 fl (82-101) 07/13/24 02:48 MCH 31.5 pg (27-33) 07/13/24 02:48 MCHC 33.2 g/dL (30-55) 07/13/24 02:48 RDW 12.3 % (12.1-15.1) 07/13/24 02:48 Plt Count 274 10^3/cmm (157-399) 07/13/24 02:48 MPV 9.5 fL (7.4-10.4) 07/13/24 02:48 Neut % (Auto) 77.9 % 07/13/24 02:48 Lymph % (Auto) 11.5 % 07/13/24 02:48 [place] % (Auto) 6.2 % 07/13/24 02:48 Eos % (Auto) 3.3 % 07/13/24 02:48 Baso % (Auto) 0.5 % 07/13/24 02:48 Neut # (Auto) 10.06 10^3/uL (1.8-7.7) H 07/13/24 02:48 Lymph # (Auto) 1.5 10^3/uL (0.8-4.8) 07/13/24 02:48 [place] # (Auto) 0.8 10^3/uL (0.2-0.9) 07/13/24 02:48 Eos # (Auto) 0.4 10^3/uL (0.0-0.8) 07/13/24 02:48 Baso # (Auto) 0.1 10^3/uL (0.0-0.1) 07/13/24 02:48 Nucleated RBC % (auto) 0 % 07/13/24 02:48 Nucleated RBCs # 0.0 /100WBC 07/13/24 02:48 D-Dimer 0.78 ug/mLFEU (0-0.59) H 07/06/24 11:08 Sodium 136 mmol/L (136-145) 07/13/24 02:48 Potassium 4.1 mmol/L (3.5-5.1) 07/13/24 02:48 Chloride 101 mmol/L (98-107) 07/13/24 02:48 Carbon Dioxide 24 mmol/L (22-29) 07/13/24 02:48 Anion Gap 15.1 (5-19) 07/13/24 02:48 BUN 17 mg/dL (8-23) 07/13/24 02:48 Creatinine 1.4 mg/dL (0.7-1.2) H 07/13/24 02:48 GFR Calculation Not Reportable 07/13/24 02:48 Glucose 102 mg/dL (65-115) 07/13/24 02:48 POC Glucose 114 mg/dL (70-110) H 07/10/24 20:37 Calculated Osmolality 284 mOsm/kg (285-295) L 07/13/24 02:48 Calcium 8.2 mg/dL (8.5-10.5) L 07/13/24 02:48 Magnesium 1.9 mg/dL (1.7-2.3) 07/13/24 02:48 Total Bilirubin 0.3 mg/dL (0.15-1.2) 07/13/24 02:48 AST 34 U/L (0-40) 07/13/24 02:48 ALT 63 U/L (0-41) H 07/13/24 02:48 Alkaline Phosphatase 63 U/L (40-130) 07/13/24 02:48 Troponin T Baseline 16 ng/L (0-15) H 07/06/24 11:08 Troponin T 120 Minute 14.98 ng/L (0-15) 07/06/24 13:42 Delta Troponin T -1.02 ABS# (0-10) L 07/06/24 13:42 Troponin T Hi Sens 6Hr 16.27 ng/L (0-15) H 07/06/24 17:24 Troponin T Hi Sens 6Hr Delta 0.27 ng/L (0-12) 07/06/24 17:24 NT-Pro-B Natriuret Pep 1137 pg/mL (0-125) H 07/06/24 11:08 NT-Pro-B Natriuret Pep 1164 pg/mL (0-125) H 07/06/24 11:08 Total Protein 6.0 g/dL (6.6-8.7) L 07/13/24 02:48 Albumin 3.0 g/dL (3.5-5.2) L 07/13/24 02:48 Globulin 3.0 g/dL (1.3-4.6) 07/13/24 02:48 Procalcitonin 0.11 ng/mL (0-0.5) 07/06/24 11:08 Procalcitonin Cancelled 07/06/24 11:08 Urine Color Dark yellow (Yellow) A 07/06/24 12:12 Urine Appearance Clear (CLEAR) 07/06/24 12:12 Urine pH 5.5 (5-7) 07/06/24 12:12 Ur Specific [place] 1.024 (1.005-1.030) 07/06/24 12:12 Urine Protein 1+ (Negative) A 07/06/24 12:12 Urine Glucose (UA) Negative (Normal) 07/06/24 12:12 Urine Ketones Trace (Negative) 07/06/24 12:12 Urine Blood Negative (Negative) 07/06/24 12:12 Urine Nitrate Negative (Negative) 07/06/24 12:12 Urine Bilirubin Negative (Negative) 07/06/24 12:12 Urine Urobilinogen 1.0 mg/dL (Negative) 07/06/24 12:12 Ur Leukocyte Esterase Negative (Negative) 07/06/24 12:12 Urine RBC 0-2 /hpf (0-2) 07/06/24 12:12 Urine WBC 0-5 /hpf (0-5) 07/06/24 12:12 Ur Squamous Epith Cells 0-5 /hpf (0-5) 07/06/24 12:12 Amorphous Sediment Not Reportable 07/06/24 12:12 Urine Bacteria None seen /hpf (NONE) 07/06/24 12:12 Hyaline Casts 10.73 /lpf 07/06/24 12:12 Fine Granular Casts 0-4 /lpf H 07/06/24 12:12 Nasal MRSA (PCR) Not detected (Negative) 07/06/24 14:26 Coronavirus (PCR) Negative (Negative) 07/07/24 14:38 Hepatitis A IgM Ab Non-reactive (Nonreactive) 07/09/24 13:52 Hep Bs Antigen Non-reactive (Nonreactive) 07/09/24 13:52 Hep Bs Antibody < 3.5 (11.5-1000) L 07/09/24 13:52 Hep B Core Total Ab Non-reactive (Nonreactive) 07/09/24 13:52 Hepatitis C Antibody Non-reactive (Nonreactive) 07/09/24 13:52 Influenza A (PCR) Negative (Negative) 07/07/24 14:38 Influenza Type B (PCR) Negative (Negative) 07/07/24 14:38 RSV (PCR) Negative (Negative) 07/07/24 14:38 A&P Assessment and plan (1) Atrial fibrillation with rapid ventricular response: In view of the ongoing atrial fibrillation and low blood pressure, it was decided to do the cardioversion. The risk of malignant ventricular arrhythmia, stroke, aspiration, heart blocks and other concomitant complications were explained in detail. Patient understood this well and consented to proceed (2) Elevated blood pressure reading: The blood pressure is in the 90s most of the times. May make changes after the cardioversion (3) Hyperlipidemia: May continue on the current medication. Qualifiers: Hyperlipidemia type: unspecified Qualified Code(s): E78.5 - Hyperlipidemia, unspecified (4) Pneumonia: Possible pneumonia. Currently remaining afebrile. Management as per the primary Qualifiers: Laterality: bilateral Lung location: unspecified part of lung Pneumonia type: due to unspecified organism Qualified Code(s): J18.9 - Pneumonia, unspecified organism Plan Patient underwent electrical cardioversion today with 120 J of biphasic current. He is currently in sinus rhythm. Will continue on the amiodarone p.o. Discontinue Lovenox and started on Eliquis Other medications may be continued Possible discharge home tomorrow PDMP PDMP Reviewed: Not Reviewed Attestations Medical Necessity Statement*: Disposition as per the primary Coding Level of Care Code 68956 Diagnoses Atrial fibrillation with rapid ventricular response I48.91 Elevated blood pressure reading R03.0 Hyperlipidemia, unspecified hyperlipidemia type E78.5 Hyperlipidemia type: unspecified Pneumonia of both lungs due to infectious organism, unspecified part of lung J18.9 Laterality: bilateral Lung location: unspecified part of lung Pneumonia type: due to unspecified organism
[2024-07-13] MEDS: metoprolol tartrate 25 mg Tablet 50 MG PO ×2 (09:35→20:36)
[2024-07-13] MEDS: pantoprazole DR 40 mg Tablet PO (09:35)
[2024-07-13] MEDS: amiodarone 200 mg Tablet 400 MG PO ×2 (09:35→18:04)
[2024-07-13] MEDS: sodium chloride 0.9% 1,000 ML 100 ML IV ×2 (09:35→20:38)
[2024-07-13] MEDS: azithromycin 250 mg Tablet 500 MG PO (09:36)
[2024-07-13] MEDS: diclofenac 75 mg DR Tablet PO ×2 (09:36→18:05)
--- NOTE | 2024-07-13 10:55 | PC.SOCIAL ---
IMM Update Pg. 2 of IMM updated and reviewed with patient, who verbalized understanding. Copy provided.
--- NOTE | 2024-07-13 11:16 | ANES.PREANE2 ---
Pre-Anesthetic Assessment Height/Weight: Height 6 ft Weight 161 lb 1.6 oz Temp Pulse Resp BP Pulse Ox O2 Del Method O2 Flow Rate 97.7 F 93 18 103/74 94 Room Air 2 07/13/24 07:52 07/13/24 08:17 07/13/24 08:17 07/13/24 07:52 07/13/24 08:17 07/13/24 08:17 07/12/24 02:40 Preop Diagnosis: New onset A-fib Was Beta Cesar taken within 24 hours: N/A Was Clonidine taken within 24 hours: N/A Social Tobacco and No alcohol Exam alert, oriented x 3 and clear to auscultation bilaterally A-fib Airway Submandibular: within normal limits Cervical ROM: within normal limits Mallampati: Class II Dentition: false Anesthetic Plan ASA status: 3 Anesthesia: MAC Other: Patient initially admitted 07/06/2024 with influenza and pneumonia. Found to be in A-fib with RVR. 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 Denies any prior cardiac issues Occasional smoking Labs reviewed from 07/13/2024 and acceptable for procedure Plan for MAC anesthetic Medications/Allergies Home Medications ?Medication ?Instructions ?Recorded ?Confirmed ?Last Taken ?Type aspirin 81 mg tablet,delayed 81 mg PO DAILY #30 tabs 11/07/23 07/06/24 07/05/24 Rx release (Adult Aspirin Regimen) cholecalciferol (vitamin D3) 1,250 50,000 unit PO .weekly #12 caps 11/07/23 07/06/24 Unknown Rx mcg (50,000 unit) capsule albuterol sulfate 2.5 mg/3 mL 2.5 mg (3 mL) inhalation QID PRN 07/05/24 07/06/24 Unknown Rx (0.083 %) solution for nebulization shortness of breath or wheezing #75 mL compressor, for nebulizer #1 ea 07/05/24 07/06/24 Unknown Rx nebulizer accessories #1 ea 07/05/24 07/06/24 Unknown Rx atorvastatin 10 mg tablet 10 mg PO DAILY 07/06/24 07/06/24 07/05/24 History diclofenac sodium 75 mg 75 mg PO DAILY pain 07/06/24 07/06/24 07/05/24 History tablet,delayed release Allergies Allergy/AdvReac Type Severity Reaction Status Date / Time Penicillins Allergy Intermediate rash Verified 07/05/24 14:07 Current Medications Generic Name Dose Route Start Last Admin Trade Name Ja PRN Reason Stop Dose Admin Amiodarone HCl 400 mg 07/12/24 09:26 07/13/24 09:35 Amiodarone 200 Mg Tablet PO 400 mg BID JAN Administration Azithromycin 500 mg 07/07/24 09:00 07/13/24 09:36 Azithromycin 250 Mg Tablet PO 500 mg DAILY JAN Administration Protocol Budesonide 0.5 mg 07/06/24 20:00 07/13/24 08:16 Budesonide 0.5 Mg/2 Ml Neb INHALATION Not Given BID.RESPIRATORY JAN Ceftriaxone Sodium 1,000 mg 07/06/24 14:15 07/12/24 15:44 Ceftriaxone 1,000 Mg Sdv IVP 1,000 mg Q24H JAN Administration Protocol Diclofenac Sodium 75 mg 07/08/24 12:50 07/13/24 09:[address] Tablet PO 75 mg BID JAN Administration Enoxaparin Sodium 80 mg 07/06/24 19:00 07/13/24 06:12 Enoxaparin 80 Mg/0.8 Ml Syringe SUBCUT 80 mg Q12H JAN Administration Sodium Chloride 1,000 mls @ 100 mls/hr 07/12/24 11:00 07/13/24 09:35 Sodium Chloride 0.9% IV 100 mls/hr .Q10H JAN Administration Ipratropium [place] 0.5 mg 07/06/24 20:00 07/13/24 08:16 Ipratropium 0.5 Mg/2.5 Ml Neb INHALATION Not Given Q6H.RESP JAN Levalbuterol HCl 0.63 mg 07/06/24 20:00 07/13/24 08:16 Levalbuterol 0.63 Mg/3 Ml Neb INHALATION Not Given Q6H.RESP JAN Metoprolol Tartrate 50 mg 07/09/24 21:00 07/13/24 09:35 Metoprolol Tartrate 25 Mg Tablet PO 50 mg BID@0900,2100 JAN Administration Pantoprazole Sodium 40 mg 07/07/24 09:00 07/13/24 09:[address] 40 Mg Tablet PO 40 mg DAILY JAN Administration Additional Medication Information Current Medications Acetaminophen (Acetaminophen 325 Mg Tablet) 650 mg PO Q6H PRN PRN Reason: Mild/Mod Pain Or Temp >/= 101 Amiodarone HCl (Amiodarone 200 Mg Tablet) 400 mg PO BID [facility] Last Admin: 07/12/24 17:46 Dose: 400 mg Azithromycin (Azithromycin 250 Mg Tablet) 500 mg PO DAILY [facility]; Protocol Last Admin: 07/12/24 09:27 Dose: 500 mg Budesonide (Budesonide 0.5 Mg/2 Ml Neb) 0.5 mg INHALATION BID.RESPIRATORY [facility] Last Admin: 07/13/24 08:16 Dose: Not Given Ceftriaxone Sodium (Ceftriaxone 1,000 Mg Sdv) 1,000 mg IVP Q24H [facility]; Protocol Last Admin: 07/12/24 15:44 Dose: 1,000 mg Diclofenac Sodium (Diclofenac [address] Tablet) 75 mg PO BID [facility] Last Admin: 07/12/24 17:46 Dose: 75 mg Diltiazem HCl (Diltiazem 30 Mg Tablet) 30 mg PO Q6H [facility] Last Admin: 07/13/24 02:55 Dose: Not Given Enoxaparin Sodium (Enoxaparin 80 Mg/0.8 Ml Syringe) 80 mg SUBCUT Q12H [facility] Last Admin: 07/13/24 06:12 Dose: 80 mg Sodium Chloride (Sodium Chloride 0.9%) 1,000 mls @ 100 mls/hr IV .Q10H [facility] Last Admin: 07/12/24 21:50 Dose: 100 mls/hr Ipratropium [place] (Ipratropium 0.5 Mg/2.5 Ml Neb) 0.5 mg INHALATION Q6H.RESP [facility] Last Admin: 07/13/24 08:16 Dose: Not Given Levalbuterol HCl (Levalbuterol 0.63 Mg/3 Ml Neb) 0.63 mg INHALATION Q6H.RESP [facility] Last Admin: 07/13/24 08:16 Dose: Not Given Metoprolol Tartrate (Metoprolol Tartrate 25 Mg Tablet) 50 mg PO BID@0900,2100 [facility] Last Admin: 07/12/24 20:48 Dose: 50 mg Ondansetron HCl (Ondansetron 2 Mg/Ml Sdv 2 Ml) 4 mg IVP Q8H PRN PRN Reason: vomiting, or N/V if npo Ondansetron HCl (Ondansetron 2 Mg/Ml Sdv 2 Ml) 4 mg IVP Q2M PRN PRN Reason: NAUSEA Pantoprazole Sodium (Pantoprazole Dr 40 Mg Tablet) 40 mg PO DAILY JAN Last Admin: 07/12/24 09:27 Dose: 40 mg PFSH Anesthesia Medical History Family history of Mckinney's disease Carotid disease, bilateral Hypertension Hyperlipidemia Surgical History Status post right inguinal hernia repair (09/10/21) History of left inguinal hernia repair H/O hemorrhoidectomy Family History Mother CAD (coronary artery disease) Family/Other CAD (coronary artery disease) Other Mckinney's chorea Social History Smoking and tobacco/nicotine status: former use of tobacco/nicotine Second hand smoke exposure: No Substance/Drug Use: never Lives independently: Yes Marital status: Current gender identity: Male Data Anesthesia 07/13/24 02:48 07/13/24 02:48 Short CBC 07/12/24 07/13/24 Range/Units 04:02 02:48 WBC 12.12 H 12.92 H (3.29-11.43) 10^3/uL Hgb 14.10 12.80 (11.27-16.99) g/dL Hct 41.5 38.5 (37-53) % MCV 94.1 94.8 (82-101) fl Plt Count 285 274 (157-399) 10^3/cmm Neut % (Auto) 79.1 77.9 % Neut # (Auto) 9.58 H 10.06 H (1.8-7.7) 10^3/uL BMP 07/12/24 07/13/24 04:02 02:48 Sodium 133 L 136 Potassium 4.3 4.1 Chloride 95 L 101 Carbon Dioxide 27 24 BUN 19 17 Creatinine 1.4 H 1.4 H Glucose 105 102 Calcium 8.8 8.2 L Liver Function 07/13/24 Range/Units 02:48 Total Bilirubin 0.3 (0.15-1.2) mg/dL AST 34 (0-40) U/L ALT 63 H (0-41) U/L Alkaline Phosphatase 63 (40-130) U/L Albumin 3.0 L (3.5-5.2) g/dL Cardiac Studies: Echocardiogram 07/07/24
--- NOTE | 2024-07-13 12:00 | USCV_ITS ---
Ahsan Beltrán Age: 74 Gender: M : 1950 Exam Date: 07/13/2024 12:09 Ordering Phys: Campos Weldon MD ([email or web address]) Technologist: ALEKSEY [place] [facility] [place]: afib BP: / HR: Rhythm: Sinus Technical Quality: Adequate MEASUREMENTS (Male / Female) Normal Values Medications IV propofol, administered by anesthesia service Complications None Proc. Components The SELINA was performed in the patient room #112. Patient was n.p.o. after midnight. Consent for the procedure was obtained.the SELINA probe was passed into the posterior pharynx , mid-esophagus, distal esophagus, and gastric fundus. SELINA was performed at multiple levels. The patient tolerated the procedure well and there were no complications. FINDINGS Left Ventricle Appears to be normal size. Mild diffuse hypokinesia. LV ejection fraction around 45% Right Ventricle Normal RV size and ejection fraction. Right Atrium Mildly dilated. Left Atrium Mildly dilated. LA Appendage Appeared to be of normal size with the diminished contractility. No intracavitary masses IA Septum The interatrial septum was intact with no evidence of any ASD or patent foramen ovale. No intracardiac shunts by color-flow Doppler examination or by saline contrast injection Mitral Valve Mild to moderate mitral regurgitation Aortic Valve Minimally thickened with no stenosis Tricuspid Valve Mild to moderate tricuspid regurgitation Pulmonic Valve No gross abnormalities noted Pericardium No pericardial effusion. Aorta Mild diffuse plaques were noted in the ascending and the arch of the aorta CONCLUSIONS Normal LV size with a slightly diminished ejection fraction of 45% Mild biatrial enlargement No intracavitary masses Interatrial septum was found to be patent intact with no evidence of ASD or PFO by color-flow Doppler examination or by saline contrast injection Normal left atrial appendage size with with diminished contractility. No intracavitary masses Mild to moderate mitral and tricuspid irritation. Minimally thickened aortic valve. Minimal plaques in the ascending, arch and descending aorta. Dr Campos Weldon MD FAC (Electronically Signed) Final Date: 13 July 2024 14:59 S
--- NOTE | 2024-07-13 12:26 | PM.PN ---
Subjective Subjective: Patient remains in A-fib. Plan for SELINA cardioversion today. Vitals/I&O/Wt Last Vital Signs Temp 97.8 F 07/13/24 11:58 Pulse 98 07/13/24 11:58 Resp 18 07/13/24 08:17 BP 106/72 07/13/24 11:58 Pulse Ox 93 07/13/24 11:58 O2 Del Method Room Air 07/13/24 11:58 O2 Flow Rate 2 07/12/24 02:40 07/12/24 07/13/24 07/13/24 22:59 06:59 14:59 Intake Total 1240 / 1600 1000 / 1000 Output Total 1675 / 1675 775 / 2450 625 / 625 Balance -435 / -75 -775 / -850 375 / 375 Weight last 48 hrs Weight 73.074 kg Weight 74.571 kg Physical Exam Narrative: GEN: Awake, alert and oriented, no acute distress, now on room air. CVS: S1S2 irregularly irregular, tachycardic. RS: Clear to auscultation bilaterally no wheezes no rhonchi no crackles. 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 SIRS: Tachycardic, Febrile, Leukocytosis Source: Pneumonia End organ damage: STANTON, A-fib Check lactic acid with reflex Patient did not receive full 30 mL/kg BW given concerns for A-fib with RVR, congestive heart failure NS at 50 cc/h for 1 bag. Watch for fluid overload. Monitor blood pressures. Keep mean artery pressure 65 mmHg. Check Blood culture, MRSA swab, procalcitonin, sputum culture. (2) Pneumonia: Chest x-ray consistent with bilateral pneumonia. Check sputum culture as above. Treatment for community-acquired pneumonia with IV ceftriaxone and was azithromycin. If MRSA swab positive will add coverage. Qualifiers: Laterality: bilateral Lung location: unspecified part of lung Pneumonia type: due to unspecified organism Qualified Code(s): J18.9 - Pneumonia, unspecified organism (3) Atrial fibrillation with rapid ventricular response: New diagnosis. Currently on Cardizem drip. Wean keeping heart rate less than 100 bpm. Start on oral Cardizem 30 mg Q6 hourly. Check echocardiogram. Discussed anticoagulation for stroke prevention in detail with the patient. He is agreeable. Start on full dose Lovenox 1 mg/kg body weight Q12 hourly. Will plan to transition over to Eliquis on discharge. (4) Hypertension: Goal blood pressure less than 140/90 mmHg. Will continue to monitor. Qualifiers: Hypertension type: unspecified Qualified Code(s): I10 - Essential (primary) hypertension (5) Flu-like symptoms: Recent flulike symptoms. For now start on Pulmicort twice daily, ipratropium, Xopenex every 6 hourly. Oxygen supplementation keeping saturation over 88%. Plan Full code Clear liquid diet for now. If tolerating well with this transition to cardiac diet in morning. Full dose Lovenox will be sufficient for DVT prophylaxis Protonix OPD prophylaxis July 07, 2024 No new complaints today. Off Cardizem infusion. Currently on 30 mg p.o. every 6 hours. Heart rate ranging 90-100. Increase dose of Cardizem to 60 mg every 8 hours and closely monitor heart rate and blood pressure response. Continue Lovenox 1 mg/kg IV every 12 hours for anticoagulation with aim to transition to DOACs closer to discharge. Continue IV ceftriaxone and azithromycin for pneumonia. Kidney function is improving today with creatinine down to 1.4-1.0. Troponin series without significant elevation. Discontinue IV fluids. Will follow-up pending echocardiogram July 08, 2024. Leukocytosis is improving. Currently on 1.5 L/min supplemental O2. Heart rate still hovering around 100-1 10. Will change Cardizem to metoprolol 25 mg p.o. twice daily today and assess for heart rate response. Obtain twelve-lead EKG. On telemetry appearing to be sinus tachycardia today. Echocardiogram showing LVEF of 60%, grade 3 diastolic dysfunction. Severely elevated filling pressures. Start Lasix 20 mg IV every 24 hours. Evaluate kidney function and urine output closely. Complaining of pain around the right knee. Patient had known history of inflammatory arthritis for which she takes diclofenac. Will resume diclofenac 75 mg p.o. twice daily and closely monitor kidney function. Noted to have very minimal swelling just above the knee joint medially. No signs of septic arthritis. Favor synovitis to be the cause. Will evaluate lower extremity ultrasound to rule out DVT. 07/09/2024 Patient still in uncontrolled atrial fibrillation however asymptomatic at this time. Increase metoprolol to 50 twice daily. Continue Cardizem drip at this time. Once heart rate better controlled we will switch to oral. Continue diuresis with Lasix 20 IV daily. ? Lower extremity Doppler ruled out DVT. Continue therapeutic Lovenox at this time we will aim to switch to Eliquis at discharge. Keep potassium above 4 magnesium above 2. Liver enzymes slightly elevated. Will check hepatitis profile. Will check CT abdomen. 07/10/2024 Patient remains in persistent atrial fibrillation with RVR. He has been on 5 of Cardizem drip last 24 to 36 hours. Will switch to Cardizem 30 every 6 and continue metoprolol 50 twice daily. This is new onset A-fib. Discussed with cardiology regarding possible SELINA cardioversion. Consult Dr. Weldon. Await recommendations. Continue therapeutic Lovenox at this time. Mild apparent megaly noted on CT abdomen. Distended bladder with enlarged prostate compatible with bladder outlet obstruction. Patient will need to follow-up with urology at discharge. 07/11/2024 The patient cardiology recommendations. Continue Cardizem 30 every 6 and metoprolol 50 twice daily. Plan for stress test in AM. N.p.o. at midnight tonight. Echo completed. Continue therapeutic Lovenox. Patient will need anticoagulation at discharge. 07/12/2024 Appreciate cardiology recommendations. Continue Cardizem 30 every 6, metoprolol tartrate 50 twice daily. Amio 400 twice daily added. Stress test results are pending at this time. Patient has developed an STANTON. Creatinine 1.4 today. I will stop 20 of oral Lasix that was being given to him during hospitalization. I am placing him normal saline 75 cc/h. He may have been over diuresed. Continue Lovenox 80 twice daily. Will need to transition to Eliquis at discharge Requires continued hospitalization secondary to A-fib with RVR. Check BMP in AM. 07/13/2024 Plan for SELINA cardioversion today. Creatinine 1.4. Continue gentle IV hydration with normal saline. Continue therapeutic Lovenox. GI PDMP PDMP Reviewed: Not Reviewed Attestations Medical Necessity Statement*: Remains in A-fib with RVR. Diagnoses Sepsis A41.9 Pneumonia of both lungs due to infectious organism, unspecified part of lung J18.9 Laterality: bilateral Lung location: unspecified part of lung Pneumonia type: due to unspecified organism Atrial fibrillation with rapid ventricular response I48.91 Hypertension, unspecified type I10 Hypertension type: unspecified Flu-like symptoms R68.89
--- NOTE | 2024-07-13 12:28 | PM.OP ---
Operative Report Date of procedure: July 13, 2024 Surgeon: Campos Weldon MD Procedure: Electrical cardioversion report Preprocedure diagnoses: Atrial fibrillation/hypotension. Brief history: 74-year-old white male, is admitted to hospital with complaints of cough shortness of breath and EKG evidence of atrial fibrillation with rapid ventricular rate. Patient is on multiple AV ej blocking agents and on amiodarone. Heart rate still remains uncontrolled with atrial fibrillation. His blood pressure was staying in the 90s and low 100. For further management of his condition, an electrical cardioversion was recommended. Location of the procedure: Room # 112 Electrode application: Anteroposterior Electrical energy applied: 120 J of biphasic current Number of shocks: Single Final rhythm: Normal sinus rhythm Final blood pressure: 110/70 Complications: None Recommendation(s): Continue on the p.o. amiodarone. Need to be closely monitored on telemetry.
[2024-07-13] MEDS: fixodent 39 gm Tube 1 APPLIC DENTAL (14:46)
[2024-07-13] MEDS: efferdent effervescent 1 EACH DENTAL (14:47)
[2024-07-13] MEDS: cefTRIAXone 1,000 mg SDV 1000 MG IVP (15:49)
[2024-07-14] VITALS (7 sets, daily range): BP systolic 102–119; BP diastolic 70–78; PULSE 62–75; RESP 14–20; TEMP 36.6–36.7; O2SAT 93–96
[2024-07-14 04:07] LABS: Basophils # 0.1 10^3/uL (0.0-0.1); Basophils % 0.6 %; Eosinophils # 0.4 10^3/uL (0.0-0.8); Eosinophils % 3.6 %; Hematocrit 37.6 % (37-53); Lymphocytes # 1.2 10^3/uL (0.8-4.8); Lymphocytes % 11.2 %; Mean Corpuscular Hemoglobin 32.5 pg (27-33); Mean Corpuscular Volume 98.4 fl (82-101); Mean Platelet Volume 10.3 fL (7.4-10.4); Monocytes # 0.6 10^3/uL (0.2-0.9); Monocytes % 5.4 %; Neutrophils # 8.66 10^3/uL (1.8-7.7); Neutrophils % 78.9 %; Nucleated Red Blood Cells % 0 %; Platelet Count 279 10^3/cmm (157-399); Red Blood Count 3.82 10^6/uL (3.85-5.65); Red Cell Distribution Width 12.5 % (12.1-15.1); White Blood Count 10.97 10^3/uL (3.29-11.43)
[2024-07-14 04:20] LABS: Anion Gap 15.3 (5-19); Blood Urea Nitrogen 14 mg/dL (8-23); Calcium 8.5 mg/dL (8.5-10.5); Carbon Dioxide 24 mmol/L (22-29); Chloride 105 mmol/L (98-107); Glucose 90 mg/dL (65-115); Magnesium 2.1 mg/dL (1.7-2.3); Osmolality Calculated 290 mOsm/kg (285-295); Potassium 4.3 mmol/L (3.5-5.1); Sodium 140 mmol/L (136-145)
[2024-07-14] MEDS: azithromycin 250 mg Tablet 500 MG PO (08:27)
[2024-07-14] MEDS: metoprolol tartrate 25 mg Tablet 50 MG PO (08:27)
[2024-07-14] MEDS: pantoprazole DR 40 mg Tablet PO (08:27)
[2024-07-14] MEDS: amiodarone 200 mg Tablet 400 MG PO (08:27)
[2024-07-14] MEDS: apixaban 5 mg Tablet PO (08:27)
[2024-07-14] MEDS: diclofenac 75 mg DR Tablet PO (08:27)
--- NOTE | 2024-07-14 09:54 | P.DS_ITS ---
Discharge Providers Date of Admission: 07/06/24 12:59 Date of Discharge: July 14, 2024 Attending Provider at Admission: Wendy Pradhan MD Attending Provider at Discharge: Bia Lowery MD Primary Care Provider: ASYA Bales Diagnoses at Discharge Discharge Diagnosis (1) Atrial fibrillation with rapid ventricular response: Status: Acute (2) Elevated blood pressure reading: Status: Acute (3) Hyperlipidemia: Status: Acute Qualifiers: Hyperlipidemia type: unspecified Qualified Code(s): E78.5 - Hyperlipidemia, unspecified (4) Pneumonia: Status: Acute Qualifiers: Laterality: bilateral Lung location: unspecified part of lung Pneumonia type: due to unspecified organism Qualified Code(s): J18.9 - Pneumonia, unspecified organism Reason for Visit Reason for Visit: pneumonia Hospital Course Hospital Course Patient was admitted for influenza, pneumonia, A-fib with RVR. He underwent a stress test which was negative. He was seen by cardiology during hospitalization and SELINA cardioversion was performed. He is now converted to sinus rhythm. He will be sent home on amiodarone, Eliquis. He also developed a mild STANTON during hospitalization. He was advised to stop diclofenac sodium going forward and to have follow-up labs done and to follow-up with primary care doctor. Patient in agreement with above. He completed his antibiotic course of Tamiflu course during hospital stay. He is stable at discharge. Physical Exam Narrative: GEN: Awake, alert and oriented, no acute distress, now on room air. CVS: S1S2 irregularly irregular, tachycardic. RS: Clear to auscultation bilaterally no wheezes no rhonchi no crackles. 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 echo complete* [id number] Routine Ultrasound 07/07/24 18:53 Completed SELINA [CV. echo transesophageal [id number]] Routine Ultrasound 07/13/24 12:00 Completed Pending at discharge Category Date Time Status Cardiac Stress Test MIBI [Sestamibi Stress Test Request Exams 07/11/24 08:48 Ordered ] Routine Radiology Impressions Chest X-Ray 07/06/24 10:57 Impression: Minimal patchy bilateral lower lobe opacities which could indicate pneumonia. Venous Duplex 07/08/24 12:51 IMPRESSION: No evidence of deep vein thrombosis. Abdomen/Pelvis CT 07/09/24 13:31 IMPRESSION: 1. Mild hepatomegaly. Noncontrast liver is otherwise normal. 2. Tiny esophageal hiatal hernia. 3. Bibasilar airspace infiltrates also seen in the lingula compatible with pneumonia. 4. No hydronephrosis in either kidney. 5. Urine distended bladder with enlarged prostate compatible with bladder outlet obstruction. Prostate measures 4.1 cm. Recommend correlation PSA. 6. No other acute findings. Laboratory Results WBC 10.97 10^3/uL (3.29-11.43) 07/14/24 02:27 RBC 3.82 10^6/uL (3.85-5.65) L 07/14/24 02:27 Hgb 12.40 g/dL (11.27-16.99) 07/14/24 02:27 Hct 37.6 % (37-53) 07/14/24 02:27 MCV 98.4 fl (82-101) 07/14/24 02:27 MCH 32.5 pg (27-33) 07/14/24 02:27 MCHC 33.0 g/dL (30-55) 07/14/24 02:27 RDW 12.5 % (12.1-15.1) 07/14/24 02:27 Plt Count 279 10^3/cmm (157-399) 07/14/24 02:27 MPV 10.3 fL (7.4-10.4) 07/14/24 02:27 Neut % (Auto) 78.9 % 07/14/24 02:27 Lymph % (Auto) 11.2 % 07/14/24 02:27 [place] % (Auto) 5.4 % 07/14/24 02:27 Eos % (Auto) 3.6 % 07/14/24 02:27 Baso % (Auto) 0.6 % 07/14/24 02:27 Neut # (Auto) 8.66 10^3/uL (1.8-7.7) H 07/14/24 02: Lymph # (Auto) 1.2 10^3/uL (0.8-4.8) 07/14/24 02:27 [place] # (Auto) 0.6 10^3/uL (0.2-0.9) 07/14/24 02:27 Eos # (Auto) 0.4 10^3/uL (0.0-0.8) 07/14/24 02:27 Baso # (Auto) 0.1 10^3/uL (0.0-0.1) 07/14/24 02: Nucleated RBC % (auto) 0 % 07/14/24 02: Nucleated RBCs # 0.0 /100WBC 07/14/24 02:27 D-Dimer 0.78 ug/mLFEU (0-0.59) H 07/06/24 11:08 Sodium 140 mmol/L (136-145) 07/14/24 02:27 Potassium 4.3 mmol/L (3.5-5.1) 07/14/24 02:27 Chloride 105 mmol/L (98-107) 07/14/24 02:27 Carbon Dioxide 24 mmol/L (22-29) 07/14/24 02:27 Anion Gap 15.3 (5-19) 07/14/24 02:27 BUN 14 mg/dL (8-23) 07/14/24 02:27 Creatinine 1.3 mg/dL (0.7-1.2) H 07/14/24 02:27 GFR Calculation Not Reportable 07/14/24 02:27 Glucose 90 mg/dL (65-115) 07/14/24 02:27 POC Glucose 114 mg/dL (70-110) H 07/10/24 20:37 Calculated Osmolality 290 mOsm/kg (285-295) 07/14/24 02:27 Calcium 8.5 mg/dL (8.5-10.5) 07/14/24 02:27 Magnesium 2.1 mg/dL (1.7-2.3) 07/14/24 02:27 Total Bilirubin 0.3 mg/dL (0.15-1.2) 07/13/24 02:48 AST 34 U/L (0-40) 07/13/24 02:48 ALT 63 U/L (0-41) H 07/13/24 02:48 Alkaline Phosphatase 63 U/L (40-130) 07/13/24 02:48 Troponin T Baseline 16 ng/L (0-15) H 07/06/24 11:08 Troponin T 120 Minute 14.98 ng/L (0-15) 07/06/24 13:42 Delta Troponin T -1.02 ABS# (0-10) L 07/06/24 13:42 Troponin T Hi Sens 6Hr 16.27 ng/L (0-15) H 07/06/24 17:24 Troponin T Hi Sens 6Hr Delta 0.27 ng/L (0-12) 07/06/24 17:24 NT-Pro-B Natriuret Pep 1137 pg/mL (0-125) H 07/06/24 11:08 NT-Pro-B Natriuret Pep 1164 pg/mL (0-125) H 07/06/24 11:08 Total Protein 6.0 g/dL (6.6-8.7) L 07/13/24 02:48 Albumin 3.0 g/dL (3.5-5.2) L 07/13/24 02:48 Globulin 3.0 g/dL (1.3-4.6) 07/13/24 02:48 Procalcitonin 0.11 ng/mL (0-0.5) 07/06/24 11:08 Procalcitonin Cancelled 07/06/24 11:08 Urine Color Dark yellow (Yellow) A 07/06/24 12:12 Urine Appearance Clear (CLEAR) 07/06/24 12:12 Urine pH 5.5 (5-7) 07/06/24 12:12 Ur Specific Kinzers 1.024 (1.005-1.030) 07/06/24 12:12 Urine Protein 1+ (Negative) A 07/06/24 12:12 Urine Glucose (UA) Negative (Normal) 07/06/24 12:12 Urine Ketones Trace (Negative) 07/06/24 12:12 Urine Blood Negative (Negative) 07/06/24 12:12 Urine Nitrate Negative (Negative) 07/06/24 12:12 Urine Bilirubin Negative (Negative) 07/06/24 12:12 Urine Urobilinogen 1.0 mg/dL (Negative) 07/06/24 12:12 Ur Leukocyte Esterase Negative (Negative) 07/06/24 12:12 Urine RBC 0-2 /hpf (0-2) 07/06/24 12:12 Urine WBC 0-5 /hpf (0-5) 07/06/24 12:12 Ur Squamous Epith Cells 0-5 /hpf (0-5) 07/06/24 12:12 Amorphous Sediment Not Reportable 07/06/24 12:12 Urine Bacteria None seen /hpf (NONE) 07/06/24 12:12 Hyaline Casts 10.73 /lpf 07/06/24 12:12 Fine Granular Casts 0-4 /lpf H 07/06/24 12:12 Nasal MRSA (PCR) Not detected (Negative) 07/06/24 14:26 Coronavirus (PCR) Negative (Negative) 07/07/24 14:38 Hepatitis A IgM Ab Non-reactive (Nonreactive) 07/09/24 13:52 Hep Bs Antigen Non-reactive (Nonreactive) 07/09/24 13:52 Hep Bs Antibody < 3.5 (11.5-1000) L 07/09/24 13:52 Hep B Core Total Ab Non-reactive (Nonreactive) 07/09/24 13:52 Hepatitis C Antibody Non-reactive (Nonreactive) 07/09/24 13:52 Influenza A (PCR) Negative (Negative) 07/07/24 14:38 Influenza Type B (PCR) Negative (Negative) 07/07/24 14:38 RSV (PCR) Negative (Negative) 07/07/24 14:38 Vitals Last Vital Signs Temp 98.0 F 07/14/24 07:30 Pulse 72 07/14/24 08:21 Resp 16 07/14/24 08:21 BP 119/78 07/14/24 07:30 Pulse Ox 96 07/14/24 08:21 O2 Del Method Room Air 07/14/24 08:21 O2 Flow Rate 2 07/12/24 02:40 Discharge Plan Discharge Patient Disposition: Home Condition: Stable Prescriptions: New amiodarone [Pacerone] 200 mg Tablet See Rx Instructions .ROUTE .COMPLEX Qty: 60 0RF Rx Instructions: 400 mg BID x 7 days, then switch to 400 mg daily x 7 daily, then 200 mg daily thereafter Eliquis 5 mg Tablet 5 mg PO BID@0900,2100 Qty: 60 0RF Continued albuterol sulfate 2.5 mg /3 mL (0.083 %) solution for nebulization 2.5 mg inhalation QID PRN (Reason: shortness of breath or wheezing) Qty: 75 0RF (DME) nebulizer accessories Kit See Rx Instructions .Route Qty: 1 0RF Rx Instructions: As directed (DME) compressor, for nebulizer Device See Rx Instructions .Route Qty: 1 0RF Rx Instructions: As directed cholecalciferol (vitamin D3) 1,250 mcg (50,000 unit) capsule 50,000 unit PO .weekly Qty: 12 1RF aspirin [Adult Aspirin Regimen] 81 mg tablet,delayed release (DR/EC) 81 mg PO DAILY Qty: 30 5RF atorvastatin 10 mg tablet 10 mg PO DAILY Held diclofenac sodium 75 mg tablet,delayed release (DR/EC) 75 mg PO DAILY Hold Instructions: STANTON, see pcp Discharge Orders: Discharge Order (Routine); Ordered 07/14/24 Ordered By: Bia Lowery Other Ambulatory Orders: Basic Metabolic Panel (Routine) Timeframe: 3 Days Facility: [facility] - Location: Lab - Main Lab Ordered By: Bia Lowery Referrals: Campos Weldon MD [Physician] - 1 month (We have notified your physician's clinic of the need for a follow-up appointment to be scheduled. If you have not heard from them within the next 2 business days, please call them directly. ) Joana Mathews FNP [Primary Care Provider] - 1-3 days (We have notified your physician's clinic of the need for a follow-up appointment to be scheduled. If you have not heard from them within the next 2 business days, please call them directly. ) Aleida Werner FNP [Nurse Practitioner] - 7-10 days (We have notified your physician's clinic of the need for a follow-up appointment to be scheduled. If you have not heard from them within the next 2 business days, please call them directly. ) Discharge Diet: Cardiac Discharge Activity: Resume usual activity Patient Instructions: Amiodarone (By mouth), Apixaban (By mouth), Pneumonitis (DC), Acute Kidney Injury (DC), Sepsis (DC), Opioid Safety Discharge Attestations Time Spent in Discharge Care*: greater than 30 min Quality Metrics Clinical Quality Measures [ No reported AMI, CVA or VTE this stay] Coding Level of Care Code Acute Code for Chg Fwd Diagnoses Atrial fibrillation with rapid ventricular response I48.91 Elevated blood pressure reading R03.0 Hyperlipidemia, unspecified hyperlipidemia type E78.5 Hyperlipidemia type: unspecified Pneumonia of both lungs due to infectious organism, unspecified part of lung J18.9 Laterality: bilateral Lung location: unspecified part of lung Pneumonia type: due to unspecified organism
[2024-07-14] MEDS: lactated ringers 1,000 ML 75 ML IV (10:00)
--- NOTE | 2024-07-14 10:02 | PM.PN ---
Subjective Subjective: The patient is remaining in sinus rhythm. He was cardioverted yesterday with 120 J of biphasic current. Has not had any recurrence of atrial fibrillation since then. Medications: Medication Review Details: Current Medications Acetaminophen (Acetaminophen 325 Mg Tablet) 650 mg PO Q6H PRN PRN Reason: Mild/Mod Pain Or Temp >/= 101 Amiodarone HCl (Amiodarone 200 Mg Tablet) 400 mg PO BID [facility] Last Admin: 07/14/24 08:27 Dose: 400 mg Apixaban (Apixaban 5 Mg Tablet) 5 mg PO BID@0900,2100 [facility] Last Admin: 07/14/24 08:27 Dose: 5 mg Azithromycin (Azithromycin 250 Mg Tablet) 500 mg PO DAILY [facility]; Protocol Last Admin: 07/14/24 08:27 Dose: 500 mg Budesonide (Budesonide 0.5 Mg/2 Ml Neb) 0.5 mg INHALATION BID.RESPIRATORY PRN PRN Reason: SHORTNESS OF BREATH Ceftriaxone Sodium (Ceftriaxone 1,000 Mg Sdv) 1,000 mg IVP Q24H [facility]; Protocol Last Admin: 07/13/24 15:49 Dose: 1,000 mg Denture Adhesive (Fixodent 39 Gm Tube) 1 applic DENTAL PRN PRN PRN Reason: denture adhesive Last Admin: 07/13/24 14:46 Dose: 1 applic Denture Adhesive (Efferdent Effervescent) 1 each DENTAL PRN PRN PRN Reason: denture adhesive Last Admin: 07/13/24 14:47 Dose: 1 each Diclofenac Sodium (Diclofenac [address] Tablet) 75 mg PO BID [facility] Last Admin: 07/14/24 08:27 Dose: 75 mg Lactated Ringer's (Lactated Ringers) 1,000 mls @ 75 mls/hr IV .[id number] [facility] Stop: 07/14/24 22:34 Last Admin: 07/14/24 10:00 Dose: 75 mls/hr Ipratropium Howell (Ipratropium 0.5 Mg/2.5 Ml Neb) 0.5 mg INHALATION Q6H.RESP PRN PRN Reason: SHORTNESS OF BREATH Levalbuterol HCl (Levalbuterol 0.63 Mg/3 Ml Neb) 0.63 mg INHALATION Q6H.RESP PRN PRN Reason: SHORTNESS OF BREATH Metoprolol Tartrate (Metoprolol Tartrate 25 Mg Tablet) 50 mg PO BID@0900,2100 [facility] Last Admin: 07/14/24 08:27 Dose: 50 mg Ondansetron HCl (Ondansetron 2 Mg/Ml Sdv 2 Ml) 4 mg IVP Q8H PRN PRN Reason: vomiting, or N/V if npo Ondansetron HCl (Ondansetron 2 Mg/Ml Sdv 2 Ml) 4 mg IVP Q2M PRN PRN Reason: NAUSEA Pantoprazole Sodium (Pantoprazole Dr 40 Mg Tablet) 40 mg PO DAILY [facility] Last Admin: 07/14/24 08:27 Dose: 40 mg Vitals/I&O/Wt Last Vital Signs Temp 98.0 F 07/14/24 07:30 Pulse 72 07/14/24 08:21 Resp 16 07/14/24 08:21 BP 119/78 07/14/24 07:30 Pulse Ox 96 07/14/24 08:21 O2 Del Method Room Air 07/14/24 08:21 O2 Flow Rate 2 07/12/24 02:40 07/13/24 07/14/24 07/14/24 22:59 06:59 14:59 Intake Total 2300 / 3540 Output Total 400 / 1025 300 / 1325 Balance 1900 / 2515 -300 / 2215 Weight last 48 hrs Weight 164 lb 12.8 oz Weight 161 lb 1.6 oz Physical Exam Narrative: GENERAL: The patient is alert and oriented times three. Not in any acute distress. HEENT: No significant pallor, icterus or lymphadenopathy.Oral cavity: There are no mucous membrane lesions. NECK: Trachea appears to be central. No masses noted. No JVD or thyromegaly appreciated. RESPIRATORY: Chest is symmetrical. No intercostals muscle retraction or any accessory muscle activation. There is no chest wall tenderness. Breath sounds are heard bilaterally. No rales or rhonchi heard. No evidence of any consolidation. BREASTS: Deferred. HEART: The heart sounds are normal. No S3 or S4. No significant murmurs. No pericardial rub ABDOMEN: No vessel pulsations or distention. No tenderness. No organomegaly appreciated. Bowel sounds are normally heard. : Deferred. RECTAL: Deferred. LYMPHATIC: No lymphadenopathy noted in the neck. EXTREMITIES: No edema or cyanosis. No clubbing. MUSCULOSKELETAL: No acute joint deformities or swelling SKIN: There are no significant rashes or ecchymosis NEUROPSYCHIATRIC: The patient is alert and oriented x3. Appears to be in a good mood. No tremors or rigidity noted. Data 07/14/24 02:27 07/14/24 02:27 A&P Assessment and plan (1) Atrial fibrillation with rapid ventricular response: Patient underwent electrical cardioversion yesterday. He was converted to normal sinus rhythm with 120 J of biphasic current. Currently he is staying in sinus rhythm. He is on amiodarone and metoprolol. (2) Elevated blood pressure reading: The blood pressure is in the normal range at this time. (3) Hyperlipidemia: May continue on the current medication. Qualifiers: Hyperlipidemia type: unspecified Qualified Code(s): E78.5 - Hyperlipidemia, unspecified (4) Pneumonia: Possible pneumonia. Currently remaining afebrile. Management as per the primary Qualifiers: Laterality: bilateral Lung location: unspecified part of lung Pneumonia type: due to unspecified organism Qualified Code(s): J18.9 - Pneumonia, unspecified organism Plan Patient may be continued on the Eliquis 5 milligram p.o. twice daily Amiodarone 400 mg p.o. twice daily for 7 days followed by 400 mg daily for 7 days followed by 200 mg p.o. daily The metoprolol may be cut back to 25 mg p.o. twice daily The patient will be seen in the [facility] by the nurse practitioner in 1 to 2 weeks I may see him in the office in 1 month PDMP PDMP Reviewed: Not Reviewed Attestations Medical Necessity Statement*: Possible discharge home today Coding Level of Care Code 36935 Diagnoses Atrial fibrillation with rapid ventricular response I48.91 Elevated blood pressure reading R03.0 Hyperlipidemia, unspecified hyperlipidemia type E78.5 Hyperlipidemia type: unspecified Pneumonia of both lungs due to infectious organism, unspecified part of lung J18.9 Laterality: bilateral Lung location: unspecified part of lung Pneumonia type: due to unspecified organism
--- NOTE | 2024-07-14 11:37 | PC.NURSE ---
Discharge Note Patient discharged to home via POV accompanied by friends. Discharge instructions reviewed with patient and/or in store representative. Mobile pharmacy medications and/or prescriptions provided. Belongings/home medications returned.
== END 2024-07-14 11:38 | disposition home or self-care (01) | DRG 871 ==
LOC: ER 12:49 → ICU 13:00 → CSU 07-08 14:12
PROVIDERS: Student in an Organized Health Care Education/Training Program; Admitting Provider Student in an Organized Health Care Education/Training Program; Emergency Provider Family Medicine; Family Provider Nurse Practitioner Family; PCP Nurse Practitioner Family; Visit Provider Internal Medicine
DX: A41.9 Sepsis, unspecified organism (principal); J18.9 Pneumonia, unspecified organism; N17.9 Acute kidney failure, unspecified; N13.8 Other obstructive and reflux uropathy; I48.91 Unspecified atrial fibrillation; R65.20 Severe sepsis without septic shock; R03.0 Elevated blood-pressure reading, without diagnosis of hypertension; E78.5 Hyperlipidemia, unspecified; N40.1 Benign prostatic hyperplasia with lower urinary tract symptoms; M19.90 Unspecified osteoarthritis, unspecified site; M25.561 Pain in right knee; Z79.899 Other long term (current) drug therapy; Z88.0 Allergy status to penicillin; Z87.891 Personal history of nicotine dependence; Z79.82 Long term (current) use of aspirin; Z11.52 Encounter for screening for COVID-19; Z82.49 Family history of ischemic heart disease and other diseases of the circulatory system; Z86.79 Personal history of other diseases of the circulatory system
CPT/HCPCS: 36415; 36416; 71045; 71046; 74176; 78452; 80048; 80053; 81001; 82962; 83735; 83880; 84145; 84484; 85025; 85378; 86705; 86706; 86709; 86803; 87040; 87070; 87205; 87340; 87400; 87426; 87637; 93005; 93017; 93306; 93312; 93320; 93325; 93971; 94640; 96365; 96367; 96372; 96374; 96375; 96376; 99285; A9500; J0696; J1650; J1940; J1956; J2785; J3490; J7030; J7120; J7614; J7626; J7644; J9999; Q0144

== ENCOUNTER → 2024-07-19 11:38 | Outpatient (BNVA) | payer MEDICARE, OTHER, SELFPAY | PROVIDERS: Family Provider Nurse Practitioner Family; PCP Nurse Practitioner Family; Visit Provider Nurse Practitioner Family | DX: E55.9 Vitamin D deficiency, unspecified (principal); I10 Essential (primary) hypertension | CPT/HCPCS: 80053; 82306; 85025 ==

== ENCOUNTER → 2024-07-31 08:36 | Outpatient (BNVA) | payer MEDICARE, OTHER, SELFPAY | PROVIDERS: Family Provider Nurse Practitioner Family; PCP Nurse Practitioner Family; Visit Provider Nurse Practitioner Family | DX: I11.0 Hypertensive heart disease with heart failure (principal); I50.20 Unspecified systolic (congestive) heart failure; E78.5 Hyperlipidemia, unspecified; F17.210 Nicotine dependence, cigarettes, uncomplicated; Z79.01 Long term (current) use of anticoagulants | CPT/HCPCS: 99214 ==

== ENCOUNTER 2024-08-30 07:40 | Outpatient (CLI) | payer MEDICARE, OTHER, SELFPAY ==
--- NOTE | 2024-08-30 07:45 | USCV_ITS ---
Ahsna Beltrán Age: 74 Gender: M : 1950 Exam Date: 08/30/2024 08:01 Ordering Phys: Camelia Tolbert NP Technologist: Exam Location: [facility] [place] Indication: ef BP: 110 / 65 HR: Rhythm: Sinus Technical Quality: Good MEASUREMENTS (Male / Female) Normal Values 2D ECHO LV Diastolic Diameter PLAX 4.9 cm 4.2 - 5.9 / 3.9 - 5.3 cm IVS Diastolic Thickness 1.1 cm 0.6 - 1.0 / 0.6 - 0.9 cm IVS Systolic Thickness 2.1 cm LVPW Diastolic Thickness 1.2 cm 0.6 - 1.0 / 0.6 - 0.9 cm LVPW Systolic Thickness 1.6 cm LVOT Diameter 2.1 cm LV Ejection Fraction 2D Teich 69.0 % LV Ejection Fraction MOD 4C 65.0 % LV Ejection Fraction MOD 2C 58.2 % LV Ejection Fraction 2C AL 59.4 % LA Diameter 3.5 cm RA Systolic Volume 4C AL 49.2 ml RA Systolic Volume 4C MOD 45.6 ml Aorta at Sinotubular Diameter 2.7 cm M-MODE LA Ao Ratio MM 1.1 AV Cusp Separation MM 2.0 cm FINDINGS Left Ventricle Right Ventricle Right Atrium Left Atrium Mitral Valve Aortic Valve Tricuspid Valve Pulmonic Valve Pericardium Aorta IVC CONCLUSIONS Limited echocardiogram performed to assess LV systolic function LV systolic function is normal with EF of 55-60%. No regional wall motion abnormalities. David Pace MD (Electronically Signed) Final Date: 16 September 2024 13:17 S
== END 2024-08-30 07:41 | disposition home or self-care (01) ==
LOC: RAD 07:42
PROVIDERS: Family Provider Nurse Practitioner Family; PCP Nurse Practitioner Family; Visit Provider Nurse Practitioner Family
DX: I50.20 Unspecified systolic (congestive) heart failure (principal)
CPT/HCPCS: 93308